=== PATIENT | female | born 1985 | race Caucasian/White ===

== ENCOUNTER 2016-10-04 22:12 | Emergency (ER) | payer OTHER ==
[~2016-10-04] VITALS: Ht 165.1 cm; Wt 154.2 kg
[~2016-10-04 22:12] MED LIST: DESV50TA PO; HYDR-757 PO; IBUP-1773 PO; MILN12.5 PO
--- OUTSIDE RECORDS SUMMARY | 2016-10-04 22:17 | XMS REPORT | Continuity of Care Document ---
Author Author [facility] Organization [facility] Address Unknown Phone Unavailable Care Team Providers Care Car Shunter Name Role Phone PCP Unavailable Source Comments Some departments are not documenting in the electronic medical record. If you do not see the information that you expected, contact Release of Information in the Health Information Management department at [phone] for further assistance in locating additional records.[facility] Active Allergies and Adverse Reactions Not on File Current Medications Not on file Active Problems Not on file Social History Tobacco Use Types Packs/Day Years Used Date Never Assessed Plan of Care Date Type Specialty Providers Description 12/17/2016 Appointment Allergy,Immunology and Nguyen Choi MD Rheumatology [address] [facility] [address] [place] [address] [phone] (Fax) Health Maintenance Due Date Last Done Comments Physical (Comprehensive) 1994 Exam Pertussis Vaccine 1998 Tetanus Vaccine 2004 Cervical Cancer Screening 2008 Influenza Vaccine 05/23/2016 Results from Last 3 Months Not on file
[2016-10-04 22:35] LABS: BILIRUBIN,URINE NEGATIVE (NEGATIVE); KETONES,URINE NEGATIVE (NEGATIVE); LEUKOCYTE ESTERASE ,URINE 2+ (NEGATIVE); NITRITE,URINE NEGATIVE (NEGATIVE); PH,URINE 6 (5-9); PROTEIN,URINE NEGATIVE (NEGATIVE); UROBILINOGEN,URINE 1 MG/DL (NORMAL)
--- NOTE | 2016-10-04 22:43 | ED Abdominal Pain ---
General Chief Complaint: Abdominal/GI Problems Stated Complaint: PELVIC PAIN Nursing Triage Note: Stated that she started having lower abd pain. Did have a fever of 101.6 that day. States it improved yesterday but started having nausea and suprapubic pain today. Pain increases with urination Sepsis Screen: Possible Sepsis Risk Source of Information: Patient History of Present Illness Time Seen By Provider: 22:29 Initial Comments C/O "PELVIC PAIN" OFF AND ON SINCE FRIDAY EVENING 10/02/16 STATES PAIN WENT AWAY FRIDAY MORNING AND DID NOT RETURN UNTIL 1999 TONIGHT STATES PAIN IS WORSE WITH URINATING OR HAVING BOWEL MOVEMENT C/O NAUSEA, NO VOMITING NO DIARRHEA OR CONSTIPATION--HAD NORMAL BM THIS EVENING HAD FEVER OF 101.6 ON FRIDAY BUT NONE SINCE NO VAGINAL BLEEDING OR DISCHARGE LMP--YEARS AGO, HAD SECOND MIRENA IUD PLACED 3 YEARS AGO. HAS TAKEN NOTHING FOR PAIN OR FEVER AT ANY TIME DENIES HISTORY OF SIMILAR PCP: ROBYN-LAURIE, GAGE FERRARO Allergies and Home Medications Allergies Coded Allergies: Deirdre Known Allergies (Verified Allergy, Unknown, 10/04/16) Home Medications Doxycycline Monohydrate 100 Mg Capsule #20 100 MG PO BID Prescribed by: LARA MEJÍA on 10/04/162307 Ketorolac Tromethamine 10 Mg Tablet #15 10 MG PO Q6H Prescribed by: LARA MEJÍA on 10/04/162307 Metronidazole 500 Mg Tablet #40 500 MG PO QID Prescribed by: LARA MEJÍA on 10/04/162307 Review of Systems Constitutional: see HPI fever EENTM: No Symptoms Reported Respiratory: No Symptoms Reported Cardiovascular: No Symptoms Reported Gastrointestinal: See HPI Abdominal Pain NauseaDenies Vomiting Genitourinary: See HPI Pain Musculoskeletal: no symptoms reported Skin: no symptoms reported Psychiatric/Neurological: No Symptoms Reported Endocrine: No Symptoms Reported Hematologic/Lymphatic: No Symptoms Reported Past Ilnfvfj-Jrnync-Wxhmqh Hx Patient Social History Alcohol Use: Denies Use Recreational Drug Use: No Smoking Status: Never a Smoker Recent Foreign Travel: No Contact w/Someone Who Travel: No Recent Infectious Disease Expo: No Recent Hopitalizations: No Physical Abuse Screen: No Sexual Abuse: No Immunizations Up To Date Tetanus Booster (TDap): Less than 5yrs Surgeries HX Surgeries: Yes ( X 2; WISDOM TEETH REMOVED; RIGHT OOPHORECTOMY FOR OVARIAN CYST) Surgeries: Section, Oophorectomy Respiratory Hx Respiratory Disorders: No Cardiovascular Hx Cardiac Disorders: Yes Cardiac Disorders: Hypertension Neurological Hx Neurological Disorders: No Reproductive System Hx Reproductive Disorders: No Sexually Transmitted Disease: No HIV/AIDS: No Female Reproductive Disorders: Ovarian Cyst 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 Genitourinary Hx Genitourinary Disorders: Yes Genitourinary Disorders: Kidney Infection, Bladder Infection Gastrointestinal Hx Gastrointestinal Disorders: No Musculoskeletal Hx Musculoskeletal Disorders: Yes Musculoskeletal Disorders: Fibromyalgia Endocrine Hx Endocrine Disorders: Yes (OBESITY) HEENT HX ENT Disorders: No Cancer Hx Cancer: No Psychosocial Hx Psychiatric Problems: No Integumentary HX Skin/Integumentary Disorder: No Blood Transfusions Hx Blood Disorders: No Physical Exam Vital Signs VS - Last 72 Hours, by Label 10/04/16 10/04/16 22:21 23:45 Temp 98.0 98.4 Pulse 97 91 Resp 18 18 B/P 140/93 Pulse Ox 100 99 Capillary Refill : Less Than 3 Seconds General Appearance: WD/WN no apparent distress obese other (WALKS UPRIGHT AND MOVES WITHOUT DIFFICULTY) Neck: normal inspection Respiratory: normal breath sounds no respiratory distress no accessory muscle use Cardiovascular: normal peripheral pulses regular rate, rhythm no edema no JVD no murmur Gastrointestinal: normal bowel sounds soft no organomegaly no pulsatile massNo distended, No guarding, No rebound, tenderness (SUPRAPUBIC TENDERNESS) No hernia, No mass Extremities: normal inspection Back: no CVA tenderness Pelvic: normal external exam discharge (SMALL AMOUNT OF LIGHT YELLOW DISCHARGE ) tender w/ cervical motion (MARKED) tender adnexa (LEFT > RIGHT ) tender uterus other (CERVIX INFLAMED AND VERY FRIABLE. 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 no motor/sensory deficits alert normal mood/affect oriented x 3 Skin: normal color warm/dry Progress/Results/Core Measures Results/Orders Lab Results Laboratory Tests Test 10/04/16 22:16 10/04/16 23:00 Range/Units Urine Bacteria MODERATE H /HPF Urine Bilirubin NEGATIVE NEGATIVE Urine Casts NONE /LPF Urine Clarity SLIGHTLY CLOUDY Urine Color YELLOW Urine Crystals NONE /LPF Urine Culture Indicated YES Urine Glucose (UA) NEGATIVE NEGATIVE Urine Ketones NEGATIVE NEGATIVE Urine Leukocyte Esterase 2+ H NEGATIVE Urine Mucus NEGATIVE /LPF Urine Nitrite NEGATIVE NEGATIVE Urine Protein NEGATIVE NEGATIVE Urine RBC RARE /HPF Urine RBC (Auto) 2+ H NEGATIVE Urine Specific [place] 1.020 1.016-1.022 Urine Squamous Epithelial Cells 10-25 H /HPF Urine Urobilinogen 1 NORMAL MG/DL Urine WBC 5-10 H /HPF Urine pH 6 5-9 My Orders Orders-LARA MEJÍA DO Urine Bedside (10/04/16 22:24) Ua Culture If Indicated (10/04/16 22:24) Urine Culture (10/04/16 22:16) Neisseria Gonorrhea Dna (10/04/16 22:52) Chlam Dna Probe (10/04/16 22:52) Genital Culture (10/04/16 22:52) Wet Prep (10/04/16 22:52) Noelle Prep (10/04/16 22:52) Ketorolac Injection (Toradol Injection) (10/04/16 23:15) Ceftriaxone Injection (Rocephin Injectio (10/04/16 23:15) Lidocaine 1% Injection (Xylocaine 1% Inj (10/04/16 23:15) Azithromycin Tablet (Zithromax Tablet) (10/05/16 09:00) Azithromycin Tablet (Zithromax Tablet) (10/04/16 23:26) Medications Given in ED Current Medications Medications Dose Ordered Sig/Lucero Route Start Time Stop Time Status Last Admin Dose Admin Ceftriaxone Sodium 1,000 mg ONCE ONCE IM 10/04/16 23:15 10/04/16 23:16 DC 10/04/16 23:37 1,000 MG Ketorolac Tromethamine 60 mg ONCE ONCE IM 10/04/16 23:15 10/04/16 23:16 DC 10/04/16 23:37 60 MG Lidocaine HCl 2.1 ml ONCE ONCE INJ 10/04/16 23:15 10/04/16 23:16 DC 10/04/16 23:37 2.1 ML Vital Signs/I&O Vital Sign - Last 12Hours 10/04/16 10/04/16 22:21 23:45 Temp 98.0 98.4 Pulse 97 91 Resp 18 18 B/P 140/93 Pulse Ox 100 99 Blood Pressure Mean: 109 Point of Care Testing Urine -Bedside: Negative Departure Impression Impression: Primary Impression: Urinary tract infection Additional Impression: PID (pelvic inflammatory disease) Disposition: 01 HOME, SELF-CARE Condition: Stable Departure-Patient Inst. Referrals: FELECIA JOHNSON DO (PCP) Primary Care Physician SCOUT FERRARO (Family) Primary Care Physician Patient Instructions: Acute Pelvic Pain (DC), Pelvic Inflammatory Disease (DC) , Urinary Tract Infection, Adult (DC) Add. Discharge Instructions: LOTS OF CLEAR LIQUIDS--NO COFFEE, POP OR TEA TYLENOL 1 GRAM /MOTRIN 800 MG 4 TIMES A DAY NEEDED FOR PAIN OR FEVER NOTHING IN VAGINA--NO TAMPONS, DOUCHING OR INTERCOURSE UNTIL CLEARED BY DR. FOLLOW UP WITH YOUR DR IN 2-3 DAYS FOR FURTHER CARE RETURN TO ER IF WORSE All discharge instructions reviewed with patient and/or family. Voiced understanding. Scripts Ketorolac Tromethamine 10 Mg [id number] Mg PO Q6H Pain #15 TAB Prov:LARA MEJÍA DO 10/04/16 Metronidazole (Flagyl)500 Mg [id number] Mg PO QID FOR INFECTION #40 TAB Prov:LARA MEJÍA DO 10/04/16 Doxycycline Monohydrate 100 Mg [id number] Mg PO BID #20 CAP Prov:LARA MEJÍA DO 10/04/16 LARA MEJÍA DO Oct 04, 2016 22:43
[2016-10-04] MEDS ORDERED: METR500T PO (23:08)
[2016-10-04] MEDS ORDERED: DOXY100C42 PO (23:08)
[2016-10-04] MEDS ORDERED: KETO10TA PO (23:08)
[2016-10-04] MEDS ORDERED: cefTRIAXone 1 GM (ROCEPHIN) VIAL IM ONE (23:15)
[2016-10-04] MEDS ORDERED: LIDOCAINE 1% INJ 20 ML (XYLOCAINE) VIAL INJ ONE (23:15)
[2016-10-04] MEDS ORDERED: KETOROLAC 60 MG/2 ML VIAL IM ONE (23:15)
[2016-10-04] MEDS ORDERED: AZITHROMYCIN 250 MG TAB (ZITHROMAX) PO ONE (23:26)
[2016-10-04 23:45] VITALS: BP 141/81
[2016-10-05] MEDS ORDERED: AZITHROMYCIN 250 MG TAB (ZITHROMAX) PO SCH (09:00)
[2016-12-24 09:50] LABS: CHLAMYDIA DNA PROBE PT Negative (NEG); NEISSERIA GONORRHEA DNA Negative (NEG)
== END 2016-10-04 23:42 | disposition home or self-care (01) ==
LOC: EDUNIT# 22:12 → ER 22:14
DX: N73.9 Female pelvic inflammatory disease, unspecified (principal); N39.0 Urinary tract infection, site not specified; I10 Essential (primary) hypertension; E66.9 Obesity, unspecified; Z79.899 Other long term (current) drug therapy; Z97.5 Presence of (intrauterine) contraceptive device
CPT/HCPCS: 36415; 81000; 84703; 87070; 87088; 87210; 87220; 87491; 87591; 96372; 99284

== ENCOUNTER → 2016-10-14 | Outpatient (CLI) | payer OTHER ==
[~2016-10-14] MED LIST changes: +CHOL200014 PO; +DOXY100C42 PO; +HYDR-3812 PO; +KETO10TA PO; +LEVO50TA6 PO; +METR500T PO
--- OUTSIDE RECORDS SUMMARY | 2016-10-14 10:54 | XMS REPORT | Continuity of Care Document ---
Author Author [facility] Organization [facility] Address Unknown Phone Unavailable Care Team Providers Care Rehabilitation Tech Name Role Phone PCP Unavailable Source Comments Some departments are not documenting in the electronic medical record. If you do not see the information that you expected, contact Release of Information in the Health Information Management department at [phone] for further assistance in locating additional records.[facility] Active Allergies and Adverse Reactions Not on File Current Medications Not on file Active Problems Not on file Social History Tobacco Use Types Packs/Day Years Used Date Never Assessed Plan of Care Date Type Specialty Providers Description 12/17/2016 Appointment Allergy,Immunology and Nguyen Choi MD Rheumatology [address] [facility] [address] [place] [address] [phone] (Fax) Health Maintenance Due Date Last Done Comments Physical (Comprehensive) 1994 Exam Pertussis Vaccine 1998 Tetanus Vaccine 2004 Cervical Cancer Screening 2008 Influenza Vaccine 05/23/2016 Results from Last 3 Months Not on file
--- NOTE | 2016-10-14 12:14 | Diagnostic Imaging Report ---
EXAMINATION: Pelvic ultrasound. INDICATION: Pelvic pain. FINDINGS: The previous pelvic ultrasound exam performed on 10/03/2015 noted a 7.5 cm benign-appearing cyst associated with the right ovary. Reportedly in the interval since the prior exam, the cyst and the right ovary have been surgically removed. On this exam, the right ovary is not identified. In the interval since the previous study, a 3.9 x 2.3 x 5.8 cm hypoechoic lesion with internal echoes has developed on the left ovary. This may represent an ovarian cyst which has appears to have been complicated by infection and/or hemorrhage. If further study is desired, then laparoscopy will be recommended. Otherwise, a short-term (4-6 week) follow-up ultrasound exam should be obtained. There is no solid pelvic mass or free fluid collection noted. The uterus is nongravid and not enlarged measuring 7.9 x 4.9 x 4.4 cm. The endometrial lining is not thickened measuring 6 mm (normal 5-6 mm). As noted on the prior exam, there is an IUD in place. There is no focal mass involving the uterus to suggest a fibroid. IMPRESSION: 1. In the interval since the previous exam, the right ovary and the right ovarian cyst have been removed. There is now a 3.9 x 2.3 x 5.8 cm hypoechoic lesion in the left ovary. 2. There is no acute pelvic abnormality noted otherwise. 3. The IUD remains in good position. Dictated by: Dictated on workstation # [id number]
== END ==
LOC: RAD 10:51
PROVIDERS: ATTEND Nurse Practitioner Family
DX: R10.2 Pelvic and perineal pain (principal)
CPT/HCPCS: 76830; 76856

== ENCOUNTER 2016-10-30 08:16 | Outpatient (CLI) | payer OTHER ==
[~2016-10-30] VITALS: Ht 165.1 cm; Wt 159.3 kg
[~2016-10-30 08:16] MED LIST changes: -CHOL200014 PO; -HYDR-3812 PO; -LEVO50TA6 PO
--- OUTSIDE RECORDS SUMMARY | 2016-10-30 08:19 | XMS REPORT | Continuity of Care Document ---
Author Author [facility] Organization [facility] Address Unknown Phone Unavailable Care Team Providers Care Qa Analyst Name Role Phone PCP Unavailable Source Comments Some departments are not documenting in the electronic medical record. If you do not see the information that you expected, contact Release of Information in the Health Information Management department at [phone] for further assistance in locating additional records.[facility] Active Allergies and Adverse Reactions Not on File Current Medications Not on file Active Problems Not on file Social History Tobacco Use Types Packs/Day Years Used Date Never Assessed Plan of Care Date Type Specialty Providers Description 12/17/2016 Appointment Allergy,Immunology and Nguyen Choi MD Rheumatology [address] [facility] [address] [place] [address] [phone] (Fax) Health Maintenance Due Date Last Done Comments Physical (Comprehensive) 1994 Exam Pertussis Vaccine 1998 Tetanus Vaccine 2004 Cervical Cancer Screening 2008 Influenza Vaccine 05/23/2016 Results from Last 3 Months Not on file
[2016-10-30] MEDS ORDERED: LEVO50TA6 PO (08:26)
[2016-10-30] MEDS ORDERED: CHOL200014 PO (08:26)
[2016-10-30 08:30] VITALS: BP 124/75
[2016-10-30 08:57] LABS: BASOPHILS % (AUTO) 0 % (0-10); EOSINOPHILS # (AUTO) 0.1 10^3/uL (0.0-0.3); EOSINOPHILS % (AUTO) 2 % (0-10); LYMPHOCYTES # (AUTO) 1.2 X 10^3 (1.0-4.0); LYMPHOCYTES % (AUTO) 20 % (12-44); MEAN CORPUSCULAR HEMOGLOBIN 29 PG (25-34); MEAN CORPUSCULAR HGB CONC 34 G/DL (32-36); MEAN CORPUSCULAR VOLUME 85 FL (80-99); MEAN PLATELET VOLUME 10.3 FL (7.4-10.4); MONOCYTES # (AUTO) 0.4 X 10^3 (0.0-1.0); MONOCYTES % (AUTO) 7 % (0-12); NEUTROPHILS # (AUTO) 4.4 X 10^3 (1.8-7.8); NEUTROPHILS % (AUTO) 72 % (42-75); PLATELET COUNT 257 10^3/uL (130-400); RED BLOOD COUNT 5.19 10^6/uL (4.35-5.85); RED CELL DISTRIBUTION WIDTH 13.4 % (10.0-14.5); WHITE BLOOD COUNT 6.1 10^3/uL (4.3-11.0)
[2016-10-31] MEDS ORDERED: HYDR-3812 PO (10:53)
[2016-10-31] MEDS ORDERED: IBUP-1773 PO (10:53)
== END 2016-10-30 09:51 | disposition home or self-care (01) ==
LOC: PREOP 08:16
PROVIDERS: ATTEND Obstetrics & Gynecology
DX: Z01.812 Encounter for preprocedural laboratory examination (principal); Z11.2 Encounter for screening for other bacterial diseases; R10.2 Pelvic and perineal pain; N83.209 Unspecified ovarian cyst, unspecified side
CPT/HCPCS: 36415; 84703; 85025; 86850; 86900; 86901; 87081

== ENCOUNTER 2016-10-31 07:50 | Day surgery (SDC) | payer OTHER ==
[~2016-10-31] VITALS: Ht 165.1 cm; Wt 159.3 kg
[~2016-10-31 07:50] MED LIST changes: +CHOL200014 PO; +LEVO50TA6 PO
--- OUTSIDE RECORDS SUMMARY | 2016-10-31 07:58 | XMS REPORT | Continuity of Care Document ---
Author Author [facility] Organization [facility] Address Unknown Phone Unavailable Care Team Providers Care Sorter/Assay Tech Name Role Phone PCP Unavailable Source Comments Some departments are not documenting in the electronic medical record. If you do not see the information that you expected, contact Release of Information in the Health Information Management department at [phone] for further assistance in locating additional records.[facility] Active Allergies and Adverse Reactions Not on File Current Medications Not on file Active Problems Not on file Social History Tobacco Use Types Packs/Day Years Used Date Never Assessed Plan of Care Date Type Specialty Providers Description 12/17/2016 Appointment Allergy,Immunology and Nguyen Choi MD Rheumatology [address] [facility] [address] [place] [address] [phone] (Fax) Health Maintenance Due Date Last Done Comments Physical (Comprehensive) 1994 Exam Pertussis Vaccine 1998 Tetanus Vaccine 2004 Cervical Cancer Screening 2008 Influenza Vaccine 05/23/2016 Results from Last 3 Months Not on file
--- OUTSIDE RECORDS SUMMARY | 2016-10-31 07:58 | XMS REPORT | Continuity of Care Document ---
Author Author [facility] Organization [facility] Address Unknown Phone Unavailable Care Team Providers Care Apartment Property Manager Name Role Phone PCP Unavailable Source Comments Some departments are not documenting in the electronic medical record. If you do not see the information that you expected, contact Release of Information in the Health Information Management department at [phone] for further assistance in locating additional records.[facility] Active Allergies and Adverse Reactions Not on File Current Medications Not on file Active Problems Not on file Social History Tobacco Use Types Packs/Day Years Used Date Never Assessed Plan of Care Date Type Specialty Providers Description 12/17/2016 Appointment Allergy,Immunology and Nguyen Choi MD Rheumatology [address] [facility] [address] [place] [address] [phone] (Fax) Health Maintenance Due Date Last Done Comments Physical (Comprehensive) 1994 Exam Pertussis Vaccine 1998 Tetanus Vaccine 2004 Cervical Cancer Screening 2008 Influenza Vaccine 05/23/2016 Results from Last 3 Months Not on file
[2016-10-31] MEDS ORDERED: NS (IVPB) 50 ML ONE (08:09)
[2016-10-31] MEDS ORDERED: ceFAZolin 1,000 MG (ANCEF) VIAL ONE (08:09)
[2016-10-31] MEDS ORDERED: BUP/EPI 0.25% 1:200,000 (MARCAINE) 30 ML VIAL ONE (08:15)
[2016-10-31] MEDS ORDERED: ceFAZolin 1 GM/NS 50 ML IVPB IV ONE ×2 (08:15)
[2016-10-31 08:25] VITALS: BP 138/94
[2016-10-31] MEDS: LACTATED RINGERS 1,000 ML IV SCH ×2 (08:30→10:15)
[2016-10-31] MEDS ORDERED: LIDOCAINE PF 2% 10 ML (XYLOCAINE) AMP ONE (09:33)
[2016-10-31] MEDS ORDERED: proPOfol 200 MG/20 ML (DIPRIVAN) VIAL IV ONE (09:33)
[2016-10-31] MEDS ORDERED: ROCURONIUM 50 MG/5 ML (ZEMURON) VIAL IV ONE (09:33)
[2016-10-31] MEDS ORDERED: ONDANSETRON 4 MG/2 ML (SDV) Z0FRAN ONE (09:33)
[2016-10-31] MEDS ORDERED: LIDOCAINE JELLY 2% (XYLOCAINE) 5 ML TUBE ONE (09:33)
[2016-10-31] MEDS ORDERED: MIDAZOLAM 2 MG/2 ML (VERSED) VIAL ONE (09:33)
[2016-10-31] MEDS ORDERED: LACTATED RINGERS 1,000 ML IV ONE (09:33)
[2016-10-31] MEDS ORDERED: fentaNYL INJECTION 100 MCG/2 ML AMP ONE ×2 (09:34→10:50)
[2016-10-31] MEDS ORDERED: SEVOFLURANE (ULTANE) 15 ML INHAL SOLN ONE ×2 (10:14→10:50)
[2016-10-31] MEDS ORDERED: morphine INJ 10 MG/ML 1ML (SYR OR VIAL) ONE ×2 (10:29→10:50)
[2016-10-31] MEDS ORDERED: D5 LR IV SOLUTION 1,000 ML IV SCH (10:49)
--- NOTE | 2016-10-31 10:52 | Discharge Inst-Women's Service ---
Discharge Inst-Women's Serv Depart Medication/Instructions New, Converted or Re-Newed RX: RX on Chart Consults/Follow Up Additional Follow Up: Yes Orders/Referrals Dr. Roblero in 2-3 weeks Activity Activity: Activity as Tolerated Driving Instructions: No Driving for 1 Week NO SMOKING: NO SMOKING Nothing Inside Vagina: No Douching, No [place], No Tampons Diet Discharge Diet: No Restrictions Symptoms to Report to : Bleeding Excessive, Pain Increased, Fever Over 101 Degrees F, Vaginal Bleeding Increase, Questions/Concerns For Any Problems or Questions: Contact Your Physician Skin/Wound Care Infection Signs and Symptoms: Increased Redness, Foul Odor of Wound, Increased Drainage, Skin Itchy or Has a Rash, Increased Swelling, Temperature Above 101 F Operative Area Clean and Dry: Keep Incision Clean/Dry Stitches/Samantha/Dermabond: Dermabond Bathing Instructions: MADISON Main DO Oct 31, 2016 10:52
[2016-10-31] MEDS ORDERED: HYDR-3812 PO (10:53)
[2016-10-31] MEDS ORDERED: IBUP-1773 PO (10:53)
[2016-10-31] MEDS ORDERED: ONDANSETRON 4 MG/2 ML (SDV) Z0FRAN IVP PRN ×2 (11:00)
[2016-10-31] MEDS ORDERED: fentaNYL INJECTION 100 MCG/2 ML AMP IVP PRN (11:00)
[2016-10-31] MEDS ORDERED: KETOROLAC 30 MG/ML VIAL IVP ONE (11:00)
[2016-10-31] MEDS ORDERED: MEPERIDINE (DEMEROL) INJ 50 MG/ML IVP PRN (11:00)
[2016-10-31] MEDS ORDERED: HYDROcodone/APAP 5 MG/325 MG (LORTAB) TAB PO PRN (11:00)
[2016-10-31] MEDS: morphine INJ 10 MG/ML 1ML (SYR OR VIAL) IVP PRN ×2 (11:06→11:22)
[2016-10-31 11:50] VITALS: BP 137/73
[2016-10-31 12:20] VITALS: BP 110/73
[2016-10-31 12:50] VITALS: BP 110/73
[2016-10-31 13:45] VITALS: BP 110/73
--- NOTE | 2016-11-01 12:46 | OPERATIVE REPORT ---
PROCEDURE PHYSICIAN: HENRY GARCIA DATE OF PROCEDURE: 10/31/2016 PREOPERATIVE DIAGNOSIS: 30-year-old female with left ovarian cystic structure on ultrasound. POSTOPERATIVE DIAGNOSIS: 1. 30-year-old female with left ovarian cystic structure on ultrasound. 2. Hemorrhagic left ovarian cyst. SURGEON: Dr. Henry Garcia. SQL REPORT ANALYST: Dayanna Reid APRN ANESTHESIA: General endotracheal. PROCEDURE: Left ovarian cystotomy. ESTIMATED BLOOD LOSS: Minimal URINE OUTPUT: 500 mL, clear at the end of the procedure. FLUIDS: 1500 mL lactated ringer solution. FINDINGS: Findings is an absent right ovary. Left ovary which is multicystic appearing with old blood clot noted on the inferior margin of the ovary running down the contact portion of the ovary with the ovarian fossa. Mirena IUD strings noted in place. Grossly normal appearing uterus. INDICATIONS FOR THE PROCEDURE: This 30-year-old female came to my office with concerns of significant lower abdominal pain. She was found to have an ovarian cyst, approximately 5 cm to [address] and ultrasound from an ER visit. The patient reports persistent pain and no resolution or improvement of pain in the last several days. She wants to proceed with removal of this cystic structure. I discussed with the patient more conservative measures including OCP, long-term suppression of ovarian cyst, however despite this discussion, she wishes to proceed with diagnostic laparoscopy and addressing the underlying cystic structure. The risks of the procedure was discussed with the patient in detail including risk of bleeding, infection, damaging any of the surrounding structures, including, but not limited to bowel, bladder, ureter, kidneys, risk of hematoma formation, risk of postoperative thromboembolic event, risk of anesthesia, blood transfusion, and even were all discussed with the patient. After all of her questions were answered consent was obtained. The patient was taken to the operating room. OPERATIVE REPORT IN DETAIL: Once in the operating room, general anesthesia was found to be adequate. She was placed in dorsal lithotomy position, prepped and draped in the sterile fashion. I first do a vaginal exam with sterile speculum . I am able to visualize the cervix and the strings of the Mirena IUD at which point I decided not to place a KATIA uterine manipulator due to manipulation and possible perforation of the IUD. Instead I placed a sponge stick into the posterior vaginal fornix using a long ring forceps with a sponge. I then place the Montejo catheter using sterile technique and then take my attention to the abdomen where infraumbilically I infiltrate this area using Marcaine and make a 5 mm incision and due to patient's abdominal thickness, I place the camera into my laparoscopic trocar and direct this under camera guidance through the incision site, until intraperitoneal placement is confirmed upon camera guidance. I then remove the obturator and insufflate using CO2 gas, an opening pressure of 8 mmHg is noted. I proceed to maximum pressure of 15 mmHg, at which point I am able clearly visualize the peritoneal cavity after removing the obturator of the trocar and placing the laparoscope through it. I had the patient placed in steep Trendelenburg and visualize all the findings described above. I then decide that I will need a second trocar site; this is a suprapubic site 5 mm incision is made and a 5 mm trocars was directed through this site. Intraperitoneal placement is confirmed using the laparoscope. I then gently teased the ovary out of the pelvis and move the bowel out of the posterior cul-de-sac, allowing me to visualize the ovary and I document this with photodocumentation. I then remove the clotted blood from the ovary using a grasper and create a cystotomy window through this cyst using a hook with monopolar cautery. Once this is open wide enough to allow the fluid cyst to drain, I use a suction live out nanny to suction out all of the cystic fluid within the ovary and copiously irrigate the cyst of the ovary using normal saline. There is no active bleeding noted from any my dissection planes. At that point the ovary has been decompressed and there is no active bleeding noted from the ovary itself. I then proceed with copiously irrigating the pelvis using normal saline. There is no active bleeding noted from any of my dissection planes. I then removed the suprapubic trocar under direct visualization of the laparoscope. No evidence of damage or bleeding is noted at this point. I then remove the laparoscope and release insufflation from my umbilical trocar site. Once I remove the majority of the CO2 gas. I then remove this trocar as well. There is no active bleeding noted from this trocar site as well. The skin is reapproximated using Dermabond and Band-Aids are placed over this. The sponge stick is removed from the patient's vagina. A Montejo catheter is removed as well. The patient tolerated the procedure well and was taken to the recovery area in stable condition. Lap and sponge counts were correct at the end of the procedure. Instrument counts correct as well. Job ID: [id number] Dictated Date: 10/31/2016 11:00:17 Chain Mortiser Operator Date: 11/01/2016 12:26:48 / farhat
== END 2016-10-31 13:45 | disposition home or self-care (01) ==
LOC: SDC 07:50
PROVIDERS: ATTEND Obstetrics & Gynecology
DX: N83.202 Unspecified ovarian cyst, left side (principal)

== ENCOUNTER → 2017-03-17 | Outpatient (CLI) | payer OTHER ==
[~2017-03-17] MED LIST changes: +HYDR-3812 PO
--- NOTE | 2017-03-17 13:47 | Diagnostic Imaging Report ---
PROCEDURE: US Thyroid. TECHNIQUE: Multiple real-time grayscale images were obtained of the thyroid in various projections. INDICATION: History of thyroid nodule. FINDINGS: The right thyroid lobe is 4.7 x 1.2 x 1.4 cm. The left lobe is 4.1 x 1.1 x 1.2 cm. There is a colloid cyst measuring 6 mm in the lower pole of the right thyroid lobe. Other smaller predominantly cystic areas in the mid right thyroid lobe is seen. The left lobe is fairly homogeneous with no focal lesion. IMPRESSION: Small colloid cysts seen in the right thyroid lobe. No solid nodules or masses seen. Dictated by: Dictated on workstation # [id number]
== END ==
LOC: RAD 11:10
PROVIDERS: ATTEND Nurse Practitioner Family
DX: E04.1 Nontoxic single thyroid nodule (principal); Z86.39 Personal history of other endocrine, nutritional and metabolic disease
CPT/HCPCS: 76536

== ENCOUNTER → 2017-04-03 | Outpatient (CLI) | payer OTHER ==
--- NOTE | 2017-04-03 16:14 | Diagnostic Imaging Report ---
CLINICAL INDICATION: Patient with pelvic pain. Patient has history of right ovarian cyst with right oophorectomy. EXAM: Transabdominal and transvaginal ultrasound of the pelvis. COMPARISON: Pelvic ultrasound dated 10/14/2016. FINDINGS: IUD is seen within the endometrial region of the uterus. Uterus is unremarkable with normal configuration and echogenicity. Uterus measures 7.9 cm x 4.6 cm x 4.0 cm. Right ovary is surgically resected. There is no gross abnormality in the visualized portion of the right adnexa region. Left ovary shows small follicular cysts which are less than subcentimeter in size. The left ovary has normal spectral Doppler waveform. There is no evidence of left ovarian torsion. There is no free fluid in the pelvis. IMPRESSION: 1: There is no acute pelvic process on this ultrasound exam. 2: IUD is seen within the uterus and appears to be in good position. 3: Left ovary is unremarkable. 4: Right ovary is surgically resected. Dictated by: Dictated on workstation # [id number]
== END ==
LOC: RAD 14:50
PROVIDERS: ATTEND Nurse Practitioner Family
DX: R10.2 Pelvic and perineal pain (principal); Z90.721 Acquired absence of ovaries, unilateral; Z97.5 Presence of (intrauterine) contraceptive device
CPT/HCPCS: 76830; 76856

== ENCOUNTER → 2018-05-29 | Outpatient (CLI) | payer BC ==
[~2018-05-29] MED LIST changes: +ACHD5005 PO; -CHOL200014 PO; +CHOL200085 PO; -HYDR-3812 PO; +HYDR-4226 PO; -HYDR-757 PO
--- NOTE | 2018-05-29 17:18 | Diagnostic Imaging Report ---
INDICATION: Acute pelvic pain, dyspareunia. TECHNIQUE: Multiple real-time grayscale sonographic images were obtained of the pelvis transabdominally and transvaginally. CORRELATION STUDY: 04/03/2017. FINDINGS: UTERUS/ENDOMETRIUM: Uterus measures 7.6 x 4.3 x 3.4 cm. Endometrial thickness is 7 mm. Intrauterine contraceptive device appears to be in satisfactory position. RIGHT OVARY: Not visualized, reported as surgically absent. LEFT OVARY: 5.0 x 4.9 x 3.7 cm. There is a complex hypoechoic mass perhaps a hemorrhagic cyst at 3.4 x 3.2 x 3.7 cm in size. Blood flow is demonstrated to the left ovary. No significant free pelvic fluid. IMPRESSION: 1. 3.7 cm complex mass left ovary. While nonspecific, this may be reflective of a hemorrhagic cyst. Would recommend follow-up imaging after approximately 2-3 menstrual cycles. 2. Findings compatible with right-sided oophorectomy. 3. Intrauterine contraceptive device appears to be in satisfactory position. Dictated by: Dictated on workstation # [id number]
== END ==
LOC: RAD 15:58
PROVIDERS: ATTEND Obstetrics & Gynecology
DX: N83.8 Other noninflammatory disorders of ovary, fallopian tube and broad ligament (principal); N94.10 Unspecified dyspareunia; Z97.5 Presence of (intrauterine) contraceptive device
CPT/HCPCS: 76830

== ENCOUNTER → 2018-07-20 | Outpatient (CLI) | payer BC ==
--- NOTE | 2018-07-20 17:14 | Diagnostic Imaging Report ---
PROCEDURE: US Non-ob pelvis comp/trans. TECHNIQUE: Multiple realtime grayscale images were obtained of the pelvis in various projections endovaginally. Transabdominal imaging was also performed. INDICATION: Complex left ovarian mass. Study is performed for followup. COMPARISON: Correlation is made with prior ultrasound from 05/29/2018. FINDINGS: Endometrium is 6 mm in thickness. No uterine mass is seen. The right ovary is surgically absent. The left ovary measures 3.4 x 3.0 x 2.6 cm. Complex mass involving the left ovary has decreased in size, now measuring 2.1 x 1.9 x 2.1 cm compared with 3.4 x 3.2 x 3.7 cm. No free fluid is seen. IMPRESSION: Decrease in size of complex left ovarian mass when compared with examination from 05/29/2018. Dictated by: Dictated on workstation # [id number]
== END ==
LOC: RAD 15:48
PROVIDERS: ATTEND Obstetrics & Gynecology
DX: N83.292 Other ovarian cyst, left side (principal); Z90.721 Acquired absence of ovaries, unilateral
CPT/HCPCS: 76830; 76856

== ENCOUNTER → 2018-09-23 | Outpatient (CLI) | payer BC ==
--- NOTE | 2018-09-23 15:37 | Diagnostic Imaging Report ---
INDICATION: Adnexal lesion. COMPARISON: 07/20/2018. EXAMINATION: Transvaginal pelvic ultrasound, non-OB. FINDINGS: Complex nodule in the left ovary is smaller than previous, today it measures 1.4 x 0.7 x 1.1 cm. Its previous dimensions were 2.1 x 1.9 x 2.1 cm. Its reduction likely reflects a resolving complex hemorrhagic cyst or other benign etiology. The right ovary is surgically absent. The uterus is nonfocal. No fibroid or myometrial mass. The homogeneous endometrium appears unremarkable at 4 mm. IMPRESSION: Complex left ovarian nodule, smaller than on prior, likely resolving hemorrhagic cyst. No adverse development. No new ovarian lesion. No evidence for torsion. No myometrial or endometrial pathology. Dictated by: Dictated on workstation # [id number]
== END ==
LOC: RAD 12:45
PROVIDERS: ATTEND Obstetrics & Gynecology
DX: N83.292 Other ovarian cyst, left side (principal)
CPT/HCPCS: 76830; 76856

== ENCOUNTER 2018-11-02 05:41 | Outpatient (CLI) | payer BC ==
[~2018-11-02] VITALS: Ht 165.1 cm; Wt 152.0 kg
[~2018-11-02 05:41] MED LIST changes: +CHOL200014 PO; -CHOL200085 PO
[2018-11-02] MEDS ORDERED: DULO30CA3 PO (13:37)
[2018-11-02] MEDS ORDERED: DULO60CA6 PO (13:37)
[2018-11-02] MEDS ORDERED: LEVO75TA6 PO (13:37)
== END 2018-11-02 13:44 | disposition home or self-care (01) ==
LOC: PREOP 05:41
PROVIDERS: ATTEND Obstetrics & Gynecology
DX: Z01.818 Encounter for other preprocedural examination (principal)

== ENCOUNTER 2018-11-05 09:10 | Day surgery (SDC) | payer BC ==
[~2018-11-05] VITALS: Ht 165.1 cm; Wt 152.0 kg
[~2018-11-05 09:10] MED LIST changes: +DULO30CA3 PO; +DULO60CA6 PO; +LEVO75TA6 PO
--- OUTSIDE RECORDS SUMMARY | 2018-11-05 09:14 | XMS REPORT | Clinical Summary ---
Author Author [facility] Organization [facility] Address Unknown Phone Unavailable Care Team Providers Care [employer] Att[employer] Name Role Phone Homa Escobedo NARENDRA PCP Terra Wood DO 3 Source Comments Some departments are not documenting in the electronic medical record. If you do not see the information that you expected, contact Release of Information in the Health Information Management department at [phone] for further assistance in locating additional records.[facility] Allergies Not on File Medications End Date Status Medication Sig Dispensed Refills Start Date Active baclofen (LIORESAL) 10 mg Take 10 mg by 0 tablet mouth three times daily. Active levothyroxine (SYNTHROID) Take 75 mcg 0 75 mcg tablet by mouth daily 30 minutes before breakfast. Active ERGOCALCIFEROL (VITAMIN Take 50,000 0 D2) (VITAMIN D PO) Units by mouth every 7 days. Active Problems Problem Noted Date Polyarthralgia 06/04/2017 Myalgia 06/04/2017 Family History Medical History Relation Name Comments Hypertension Father Anemia Mother Heart Failure Mother Hypertension Mother Relation Name Status Comments Father Mother Social History Date Tobacco Use Types Packs/Day Years Used Never Smoker Smokeless Tobacco: Never Used Sex Assigned at Date Recorded Not on file Industry Job Start Date Occupation Not on file Not on file Not on file Travel End Travel History Travel Start No recent travel history available. Last Filed Vital Signs Time Taken Vital Sign Reading 12/22/2017 2:42 PM CDT Blood Pressure 137/89 12/22/2017 2:42 PM CDT Pulse 83 12/22/2017 2:42 PM CDT Temperature 36.9 C (98.4 F) 12/22/2017 2:42 PM CDT Respiratory Rate 18 12/22/2017 2:42 PM CDT Oxygen Saturation 97% - Inhaled Oxygen - Concentration 12/22/2017 2:42 PM CDT Weight 159.2 kg (351 lb) 12/22/2017 2:42 PM CDT Height 165.1 cm (5' 5") 12/22/2017 2:42 PM CDT Body Mass Index 58.41 Plan of Treatment Health Maintenance Due Date Last Done Comments PHYSICAL (COMPREHENSIVE) 1994 EXAM HIV SCREENING 2002 DTAP/TDAP VACCINES (1 - 2005 Tdap) CERVICAL CANCER SCREENING 2017 INFLUENZA VACCINE 04/22/2018 Results Not on filefrom Last 3 Months Insurance Payer Benefit Subscriber ID Type Phone Address Plan / Group [facility] xxxxxxxxx Indemnity CHOICE/CHO ICE PLUS Advance Directives Patient has advance care planning documents on file. For more information, please contact: [facility] [address] [place] [address]
--- OUTSIDE RECORDS SUMMARY | 2018-11-05 09:15 | XMS REPORT | Continuity of Care Document ---
Author Author [facility] Organization [facility] Address Unknown Phone Unavailable Allergies Active Description Code Type Severity Reaction Onset Reported/Identified Relationship to Patient Clinical Status Yes NKANo Known Allergies NKA Miscellaneous Allergy Unknown N/A 10/04/2016 Yes No Known Drug Allergies [id number] Drug Allergy Unknown N/A 10/30/2016 Medications There is no data. Problems Date Dx Coded Attending Type Code Diagnosis Diagnosed By 11/10/2014 JASMINESCOUT Dago DISTANCE LEARNING COORDINATOR Ot 278.02 11/10/2014 JASMINELUCILLEA L DISTANCE LEARNING COORDINATOR Ot 729.1 11/10/2014 MADLVANDANASCOUT L DISTANCE LEARNING COORDINATOR Ot 786.50 06/23/2015 MADL, SCOUT L DISTANCE LEARNING COORDINATOR Ot 278.02 06/23/2015 MADL, SCOUT L DISTANCE LEARNING COORDINATOR Ot 729.1 06/23/2015 MADL, SCOUT L DISTANCE LEARNING COORDINATOR Ot 786.50 06/23/2015 Ot 278.00 06/23/2015 Ot 424.0 06/23/2015 Ot 786.50 06/26/2015 MADL, SCOUT L DISTANCE LEARNING COORDINATOR Ot 278.02 06/26/2015 MADL, SCOUT L DISTANCE LEARNING COORDINATOR Ot 729.1 06/26/2015 MADL, SCOUT L DISTANCE LEARNING COORDINATOR Ot 786.50 06/26/2015 Ot 278.00 06/26/2015 Ot 424.0 06/26/2015 Ot 786.50 10/06/2015 MADLUCILLE LozaA L DISTANCE LEARNING COORDINATOR Ot R10.2 10/10/2015 ISSA CRANDALL DISTANCE LEARNING COORDINATOR Ot M54.5 10/12/2015 MADISON GARCIA DO S Ot N83.20 UNSPECIFIED OVARIAN CYSTS 10/12/2015 MADISON GARCIA DO S Ot R10.2 PELVIC AND PERINEAL PAIN 10/25/2015 LUCILLE FERRAROA L DISTANCE LEARNING COORDINATOR Ot R10.2 10/25/2015 ISSA CRANDALL DISTANCE LEARNING COORDINATOR Ot M54.5 10/04/2016 KYM DO, LARA K Ot E66.9 OBESITY, UNSPECIFIED 10/04/2016 KYM DO, LARA K Ot I10 ESSENTIAL (PRIMARY) HYPERTENSION 10/04/2016 KYM DO, LARA K Ot N39.0 URINARY TRACT INFECTION, SITE NOT SPECIF 10/04/2016 YKM DO, LARA K Ot N73.9 FEMALE PELVIC INFLAMMATORY DISEASE, UNSP 10/04/2016 KYM DO, LARA K Ot R10.2 PELVIC AND PERINEAL PAIN 10/04/2016 KYM DO, LARA K Ot Z79.899 OTHER DRIVER WHEELCHAIR (CURRENT) DRUG THERAPY 10/04/2016 KYM DO, LARA K Ot Z97.5 PRESENCE OF (INTRAUTERINE) CONTRACEPTIVE 10/04/2016 MADL, SCOUT L DISTANCE LEARNING COORDINATOR Ot R10.2 PELVIC AND PERINEAL PAIN 10/07/2016 KYM DO, LARA K Ot E66.9 OBESITY, UNSPECIFIED 10/07/2016 KYM DO, LARA K Ot I10 ESSENTIAL (PRIMARY) HYPERTENSION 10/07/2016 KYM DO, LARA K Ot N39.0 URINARY TRACT INFECTION, SITE NOT SPECIF 10/07/2016 KYM DO, LARA K Ot N73.9 FEMALE PELVIC INFLAMMATORY DISEASE, UNSP 10/07/2016 KYM DO, LARA K Ot R10.2 PELVIC AND PERINEAL PAIN 10/07/2016 KYM DO, LARA K Ot Z79.899 OTHER DRIVER WHEELCHAIR (CURRENT) DRUG THERAPY 10/07/2016 KYM DO, LARA K Ot Z97.5 PRESENCE OF (INTRAUTERINE) CONTRACEPTIVE 10/14/2016 MADL, SCOUT L DISTANCE LEARNING COORDINATOR Ot R10.2 PELVIC AND PERINEAL PAIN 10/14/2016 MADL, SCOUT L DISTANCE LEARNING COORDINATOR Ot R10.2 PELVIC AND PERINEAL PAIN 10/14/2016 MADL, SCOUT L DISTANCE LEARNING COORDINATOR Ot R10.2 PELVIC AND PERINEAL PAIN 10/14/2016 ISSA CRANDALL DISTANCE LEARNING COORDINATOR Ot M54.5 LOW BACK PAIN 10/14/2016 MADL, SCOUT L DISTANCE LEARNING COORDINATOR Ot 278.02 OVERWEIGHT 10/14/2016 MADL, SCOUT L DISTANCE LEARNING COORDINATOR Ot 729.1 MYALGIA AND MYOSITIS NOS 10/14/2016 MADL, SCOUT L DISTANCE LEARNING COORDINATOR Ot 786.50 CHEST PAIN NOS 10/14/2016 Ot 278.00 OBESITY, NOS 10/14/2016 Ot 424.0 MITRAL VALVE DISORDER 10/14/2016 Ot 786.50 CHEST PAIN NOS 10/14/2016 MADL, SCOUT L DISTANCE LEARNING COORDINATOR Ot R10.2 PELVIC AND PERINEAL PAIN 10/14/2016 MADL, SCOUT L DISTANCE LEARNING COORDINATOR Ot 278.02 OVERWEIGHT 10/14/2016 MADL, SCOUT L DISTANCE LEARNING COORDINATOR Ot 729.1 MYALGIA AND MYOSITIS NOS 10/14/2016 MADL, SCOUT L DISTANCE LEARNING COORDINATOR Ot 786.50 CHEST PAIN NOS 10/14/2016 MADL, SCOUT L DISTANCE LEARNING COORDINATOR Ot 278.02 OVERWEIGHT 10/14/2016 MADL, SCOUT L DISTANCE LEARNING COORDINATOR Ot 729.1 MYALGIA AND MYOSITIS NOS 10/14/2016 MADL, SCOUT L DISTANCE LEARNING COORDINATOR Ot 786.50 CHEST PAIN NOS 10/14/2016 Ot 278.00 OBESITY, NOS 10/14/2016 Ot 424.0 MITRAL VALVE DISORDER 10/14/2016 Ot 786.50 CHEST PAIN NOS 10/15/2016 MADL, SCOUT L DISTANCE LEARNING COORDINATOR Ot R10.2 PELVIC AND PERINEAL PAIN 10/24/2016 MADL, SCOUT L DISTANCE LEARNING COORDINATOR Ot 278.02 OVERWEIGHT 10/24/2016 MADL, SCOUT L DISTANCE LEARNING COORDINATOR Ot 729.1 MYALGIA AND MYOSITIS NOS 10/24/2016 MADL, SCOUT L DISTANCE LEARNING COORDINATOR Ot 786.50 CHEST PAIN NOS 10/24/2016 Ot 278.00 OBESITY, NOS 10/24/2016 Ot 424.0 MITRAL VALVE DISORDER 10/24/2016 Ot 786.50 CHEST PAIN NOS 10/24/2016 MADL, SCOUT L DISTANCE LEARNING COORDINATOR Ot 278.02 OVERWEIGHT 10/24/2016 MADL, SCOUT L DISTANCE LEARNING COORDINATOR Ot 729.1 MYALGIA AND MYOSITIS NOS 10/24/2016 MADL, SCOUT L DISTANCE LEARNING COORDINATOR Ot 786.50 CHEST PAIN NOS 10/24/2016 Ot 278.00 OBESITY, NOS 10/24/2016 Ot 424.0 MITRAL VALVE DISORDER 10/24/2016 Ot 786.50 CHEST PAIN NOS 10/24/2016 MADL, SCOUT L DISTANCE LEARNING COORDINATOR Ot R10.2 PELVIC AND PERINEAL PAIN 10/24/2016 ISSA CRANDALL DISTANCE LEARNING COORDINATOR Ot M54.5 LOW BACK PAIN 10/24/2016 MADL, SCOUT L DISTANCE LEARNING COORDINATOR Ot R10.2 PELVIC AND PERINEAL PAIN 10/29/2016 MADL, SCOUT L DISTANCE LEARNING COORDINATOR Ot R10.2 PELVIC AND PERINEAL PAIN 10/30/2016 MADL, SCOUT L DISTANCE LEARNING COORDINATOR Ot 278.02 OVERWEIGHT 10/30/2016 MADL, SCOUT L DISTANCE LEARNING COORDINATOR Ot 729.1 MYALGIA AND MYOSITIS NOS 10/30/2016 MADL, SCOUT L DISTANCE LEARNING COORDINATOR Ot 786.50 CHEST PAIN NOS 10/30/2016 Ot 278.00 OBESITY, NOS 10/30/2016 Ot 424.0 MITRAL VALVE DISORDER 10/30/2016 Ot 786.50 CHEST PAIN NOS 10/30/2016 MADL, SCOUT L DISTANCE LEARNING COORDINATOR Ot R10.2 PELVIC AND PERINEAL PAIN 10/30/2016 KARLEY ISSA Sujata DISTANCE LEARNING COORDINATOR Ot M54.5 LOW BACK PAIN 10/30/2016 MADL, SCOUT L DISTANCE LEARNING COORDINATOR Ot R10.2 PELVIC AND PERINEAL PAIN 10/30/2016 MADL, SCOUT L DISTANCE LEARNING COORDINATOR Ot 278.02 OVERWEIGHT 10/30/2016 MADL, SCOUT L DISTANCE LEARNING COORDINATOR Ot 729.1 MYALGIA AND MYOSITIS NOS 10/30/2016 MADL, SCOUT L DISTANCE LEARNING COORDINATOR Ot 786.50 CHEST PAIN NOS 10/30/2016 Ot 278.00 OBESITY, NOS 10/30/2016 Ot 424.0 MITRAL VALVE DISORDER 10/30/2016 Ot 786.50 CHEST PAIN NOS 10/30/2016 MADL, SCOUT L DISTANCE LEARNING COORDINATOR Ot R10.2 PELVIC AND PERINEAL PAIN 10/30/2016 KARLEY ISSA A DISTANCE LEARNING COORDINATOR Ot M54.5 LOW BACK PAIN 10/30/2016 MADL, SCOUT L DISTANCE LEARNING COORDINATOR Ot R10.2 PELVIC AND PERINEAL PAIN 10/30/2016 MADISON GARCIA DO Ot N83.209 UNSPECIFIED OVARIAN CYST, UNSPECIFIED SI 10/30/2016 MADISON GARCIA DO Ot R10.2 PELVIC AND PERINEAL PAIN 10/30/2016 MADISON GARCIA DO S Ot Z01.812 ENCOUNTER FOR PREPROCEDURAL LABORATORY E 10/30/2016 RADHA GOMEZ MADISON Jones Ot Z11.2 ENCOUNTER FOR SCREENING FOR OTHER BACTER 10/31/2016 RADHA GOMEZ MADISON Jones Ot N83.209 UNSPECIFIED OVARIAN CYST, UNSPECIFIED SI 10/31/2016 RADHA GOMEZ MADISON Jones Ot R10.2 PELVIC AND PERINEAL PAIN 10/31/2016 RADHA GOMEZ MADISON Jones Ot Z01.812 ENCOUNTER FOR PREPROCEDURAL LABORATORY E 10/31/2016 RADHA GOMEZ MADISON Jones Ot Z11.2 ENCOUNTER FOR SCREENING FOR OTHER BACTER 10/31/2016 RADHA GOMEZ MADISON Jones Ot N83.202 UNSPECIFIED OVARIAN CYST, LEFT SIDE 11/04/2016 RADHA GOMEZ MADISON Jones Ot N83.202 UNSPECIFIED OVARIAN CYST, LEFT SIDE 11/05/2016 RADHA GOMEZ MADISON Jones Ot N83.202 UNSPECIFIED OVARIAN CYST, LEFT SIDE 03/17/2017 LUCILLE FERRAROA L DISTANCE LEARNING COORDINATOR Ot 278.02 OVERWEIGHT 03/17/2017 LUCILLE FERRAROA L DISTANCE LEARNING COORDINATOR Ot 729.1 MYALGIA AND MYOSITIS NOS 03/17/2017 MADL SCOUT L DISTANCE LEARNING COORDINATOR Ot 786.50 CHEST PAIN NOS 03/17/2017 Ot 278.00 OBESITY, NOS 03/17/2017 Ot 424.0 MITRAL VALVE DISORDER 03/17/2017 Ot 786.50 CHEST PAIN NOS 03/17/2017 MADL SCOUT L DISTANCE LEARNING COORDINATOR Ot R10.2 PELVIC AND PERINEAL PAIN 03/17/2017 ISSA CRANDALL DISTANCE LEARNING COORDINATOR Ot M54.5 LOW BACK PAIN 03/17/2017 MADL SCOUT L DISTANCE LEARNING COORDINATOR Ot R10.2 PELVIC AND PERINEAL PAIN 04/02/2017 MADL, SCOUT L DISTANCE LEARNING COORDINATOR Ot E04.1 NONTOXIC SINGLE THYROID NODULE 04/02/2017 MADL SCOUT L DISTANCE LEARNING COORDINATOR Ot Z86.39 PERSONAL HISTORY OF ENDO, NUTRITIONAL AN 04/04/2017 MADL, SCOUT L DISTANCE LEARNING COORDINATOR Ot R10.2 PELVIC AND PERINEAL PAIN 04/04/2017 NOAHL SCOUT L DISTANCE LEARNING COORDINATOR Ot Z90.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, UNILATERAL 04/04/2017 MADL SCOUT L DISTANCE LEARNING COORDINATOR Ot Z97.5 PRESENCE OF (INTRAUTERINE) CONTRACEPTIVE 04/07/2017 MADL, SCOUT L DISTANCE LEARNING COORDINATOR Ot E04.1 NONTOXIC SINGLE THYROID NODULE 04/07/2017 MADL, SCOUT L DISTANCE LEARNING COORDINATOR Ot Z86.39 PERSONAL HISTORY OF ENDO, NUTRITIONAL AN 04/14/2017 MADL, SCOUT L DISTANCE LEARNING COORDINATOR Ot R10.2 PELVIC AND PERINEAL PAIN 04/14/2017 MADL, SCOUT L DISTANCE LEARNING COORDINATOR Ot Z90.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, UNILATERAL 04/14/2017 MADL, SCOUT L DISTANCE LEARNING COORDINATOR Ot Z97.5 PRESENCE OF (INTRAUTERINE) CONTRACEPTIVE 04/14/2017 MADL, SCOUT L DISTANCE LEARNING COORDINATOR Ot R10.2 PELVIC AND PERINEAL PAIN 04/14/2017 MADL, SCOUT L DISTANCE LEARNING COORDINATOR Ot Z90.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, UNILATERAL 04/14/2017 MADL, SCOUT L DISTANCE LEARNING COORDINATOR Ot Z97.5 PRESENCE OF (INTRAUTERINE) CONTRACEPTIVE 04/16/2017 MADL, SCOUT L DISTANCE LEARNING COORDINATOR Ot R10.2 PELVIC AND PERINEAL PAIN 04/16/2017 MADL, SCOUT L DISTANCE LEARNING COORDINATOR Ot Z90.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, UNILATERAL 04/16/2017 MADL, SCOUT L DISTANCE LEARNING COORDINATOR Ot Z97.5 PRESENCE OF (INTRAUTERINE) CONTRACEPTIVE 04/18/2017 MADL, SCOUT L DISTANCE LEARNING COORDINATOR Ot R10.2 PELVIC AND PERINEAL PAIN 04/18/2017 MADL, SCOUT L DISTANCE LEARNING COORDINATOR Ot Z90.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, UNILATERAL 04/18/2017 MADL, SCOUT L DISTANCE LEARNING COORDINATOR Ot Z97.5 PRESENCE OF (INTRAUTERINE) CONTRACEPTIVE 02/06/2018 MADL, SCOUT L DISTANCE LEARNING COORDINATOR Ot 278.02 OVERWEIGHT 02/06/2018 MADL, SCOUT L DISTANCE LEARNING COORDINATOR Ot 729.1 MYALGIA AND MYOSITIS NOS 02/06/2018 MADL, SCOUT L DISTANCE LEARNING COORDINATOR Ot 786.50 CHEST PAIN NOS 02/06/2018 Ot 278.00 OBESITY, NOS 02/06/2018 Ot 424.0 MITRAL VALVE DISORDER 02/06/2018 Ot 786.50 CHEST PAIN NOS 02/06/2018 MADL, SCOUT L DISTANCE LEARNING COORDINATOR Ot E04.1 NONTOXIC SINGLE THYROID NODULE 02/06/2018 MADL, SCOUT L DISTANCE LEARNING COORDINATOR Ot Z86.39 PERSONAL HISTORY OF ENDO, NUTRITIONAL AN 02/08/2018 MADL, SCOUT L DISTANCE LEARNING COORDINATOR Ot 278.02 OVERWEIGHT 02/08/2018 MADL, SCOUT L DISTANCE LEARNING COORDINATOR Ot 729.1 MYALGIA AND MYOSITIS NOS 02/08/2018 MADL, SCOUT L DISTANCE LEARNING COORDINATOR Ot 786.50 CHEST PAIN NOS 02/08/2018 Ot 278.00 OBESITY, NOS 02/08/2018 Ot 424.0 MITRAL VALVE DISORDER 02/08/2018 Ot 786.50 CHEST PAIN NOS 02/08/2018 MADL, SCOUT L DISTANCE LEARNING COORDINATOR Ot E04.1 NONTOXIC SINGLE THYROID NODULE 02/08/2018 MADL, SCOUT L DISTANCE LEARNING COORDINATOR Ot Z86.39 PERSONAL HISTORY OF ENDO, NUTRITIONAL AN 02/08/2018 MADL, SCOUT L DISTANCE LEARNING COORDINATOR Ot 278.02 OVERWEIGHT 02/08/2018 MADL, SCOUT L DISTANCE LEARNING COORDINATOR Ot 729.1 MYALGIA AND MYOSITIS NOS 02/08/2018 MADL, SCOUT L DISTANCE LEARNING COORDINATOR Ot 786.50 CHEST PAIN NOS 02/08/2018 Ot 278.00 OBESITY, NOS 02/08/2018 Ot 424.0 MITRAL VALVE DISORDER 02/08/2018 Ot 786.50 CHEST PAIN NOS 02/08/2018 MADL, SCOUT L DISTANCE LEARNING COORDINATOR Ot E04.1 NONTOXIC SINGLE THYROID NODULE 02/08/2018 MADL, SCOUT L DISTANCE LEARNING COORDINATOR Ot Z86.39 PERSONAL HISTORY OF ENDO, NUTRITIONAL AN 02/09/2018 VICKIE REGAN APRN Ot E55.9 VITAMIN D DEFICIENCY, UNSPECIFIED 02/09/2018 VICKIE REGAN APRN Ot M25.552 PAIN IN LEFT HIP 02/09/2018 VICKIE REGAN APRN Ot M79.7 FIBROMYALGIA 02/09/2018 VICKIE REGAN APRN Ot R76.8 OTHER SPECIFIED ABNORMAL IMMUNOLOGICAL F 02/14/2018 ZENOBIA QUICK MD Ot M79.1 MYALGIA 02/14/2018 ZENOBIA QUICK MD Ot R76.8 OTHER SPECIFIED ABNORMAL IMMUNOLOGICAL F 02/14/2018 ZENOBIA QUICK MD Ot R79.82 ELEVATED C-REACTIVE PROTEIN (CRP) 02/18/2018 SCOUT FERRARO L DISTANCE LEARNING COORDINATOR Ot 278.02 OVERWEIGHT 02/18/2018 SCOUT FERRARO L DISTANCE LEARNING COORDINATOR Ot 729.1 MYALGIA AND MYOSITIS NOS 02/18/2018 MADLUCILLE LozaA L DISTANCE LEARNING COORDINATOR Ot 786.50 CHEST PAIN NOS 02/18/2018 Ot 278.00 OBESITY, NOS 02/18/2018 Ot 424.0 MITRAL VALVE DISORDER 02/18/2018 Ot 786.50 CHEST PAIN NOS 02/18/2018 SCOUT FERRARO L DISTANCE LEARNING COORDINATOR Ot E04.1 NONTOXIC SINGLE THYROID NODULE 02/18/2018 LUCILLE FERRAROA L DISTANCE LEARNING COORDINATOR Ot Z86.39 PERSONAL HISTORY OF ENDO, NUTRITIONAL AN 02/18/2018 ZENOBIA QUICK MD Ot M79.1 MYALGIA 02/18/2018 ZENOBIA QUICK MD Ot R76.8 OTHER SPECIFIED ABNORMAL IMMUNOLOGICAL F 02/18/2018 ZENOBIA QUICK MD Ot R79.82 ELEVATED C-REACTIVE PROTEIN (CRP) 02/18/2018 VICKIE REGAN APRN Ot E55.9 VITAMIN D DEFICIENCY, UNSPECIFIED 02/18/2018 VICKIE REGAN APRN Ot M25.552 PAIN IN LEFT HIP 02/18/2018 VICKIE REGAN APRN Ot M79.7 FIBROMYALGIA 02/18/2018 VICKIE REGAN APRN Ot R76.8 OTHER SPECIFIED ABNORMAL IMMUNOLOGICAL F 02/23/2018 ZENOBIA QUICK MD Ot M79.1 MYALGIA 02/23/2018 ZENOBIA QUICK MD Ot R76.8 OTHER SPECIFIED ABNORMAL IMMUNOLOGICAL F 02/23/2018 ZENOBIA QUICK MD Ot R79.82 ELEVATED C-REACTIVE PROTEIN (CRP) 02/23/2018 VICKIE REGAN APRN Ot E55.9 VITAMIN D DEFICIENCY, UNSPECIFIED 02/23/2018 VICKIE REGAN APRN Ot M25.552 PAIN IN LEFT HIP 02/23/2018 VICKIE REGAN APRN Ot M79.7 FIBROMYALGIA 02/23/2018 VICKIE REGAN APRN Ot R76.8 OTHER SPECIFIED ABNORMAL IMMUNOLOGICAL F 02/27/2018 MADLSCOUT L DISTANCE LEARNING COORDINATOR Ot 278.02 OVERWEIGHT 02/27/2018 MADL, SCOUT L DISTANCE LEARNING COORDINATOR Ot 729.1 MYALGIA AND MYOSITIS NOS 02/27/2018 MADL, SCOUT L DISTANCE LEARNING COORDINATOR Ot 786.50 CHEST PAIN NOS 02/27/2018 Ot 278.00 OBESITY, NOS 02/27/2018 Ot 424.0 MITRAL VALVE DISORDER 02/27/2018 Ot 786.50 CHEST PAIN NOS 02/27/2018 MADL, SCOUT L DISTANCE LEARNING COORDINATOR Ot E04.1 NONTOXIC SINGLE THYROID NODULE 02/27/2018 MADL, SCOUT L DISTANCE LEARNING COORDINATOR Ot Z86.39 PERSONAL HISTORY OF ENDO, NUTRITIONAL AN 02/27/2018 ABDELRAHMAN ADKINS, ZENOBIA L Ot M79.1 MYALGIA 02/27/2018 CHEN QUICK MDN L Ot R76.8 OTHER SPECIFIED ABNORMAL IMMUNOLOGICAL F 02/27/2018 CHEN QUIKC MDN L Ot R79.82 ELEVATED C-REACTIVE PROTEIN (CRP) 02/27/2018 VICKIE REGAN EXHIBIT CARPENTER Ot E55.9 VITAMIN D DEFICIENCY, UNSPECIFIED 02/27/2018 VICKIE REGAN EXHIBIT CARPENTER Ot M25.552 PAIN IN LEFT HIP 02/27/2018 VICKIE REGAN EXHIBIT CARPENTER Ot M79.7 FIBROMYALGIA 02/27/2018 VICKIE REGAN EXHIBIT CARPENTER Ot R76.8 OTHER SPECIFIED ABNORMAL IMMUNOLOGICAL F 03/02/2018 NOAHL, SCOUT L DISTANCE LEARNING COORDINATOR Ot E04.1 NONTOXIC SINGLE THYROID NODULE 03/02/2018 NOAHL, SCOUT L DISTANCE LEARNING COORDINATOR Ot Z86.39 PERSONAL HISTORY OF ENDO, NUTRITIONAL AN 03/18/2018 MADL, SCOUT L DISTANCE LEARNING COORDINATOR Ot 278.02 OVERWEIGHT 03/18/2018 MADL, SCOUT L DISTANCE LEARNING COORDINATOR Ot 729.1 MYALGIA AND MYOSITIS NOS 03/18/2018 MADL, SCOUT L DISTANCE LEARNING COORDINATOR Ot 786.50 CHEST PAIN NOS 03/18/2018 Ot 278.00 OBESITY, NOS 03/18/2018 Ot 424.0 MITRAL VALVE DISORDER 03/18/2018 Ot 786.50 CHEST PAIN NOS 03/18/2018 MADL, SCOUT L DISTANCE LEARNING COORDINATOR Ot E04.1 NONTOXIC SINGLE THYROID NODULE 03/18/2018 SCOUT FERRARO L DISTANCE LEARNING COORDINATOR Ot Z86.39 PERSONAL HISTORY OF ENDO, NUTRITIONAL AN 03/18/2018 ZENOBIA QUICK MD Ot M79.1 MYALGIA 03/18/2018 ZENOBIA QUICK MD Ot R76.8 OTHER SPECIFIED ABNORMAL IMMUNOLOGICAL F 03/18/2018 ZENOBIA QUICK MD Ot R79.82 ELEVATED C-REACTIVE PROTEIN (CRP) 03/18/2018 VICKIE REGAN EXHIBIT CARPENTER Ot E55.9 VITAMIN D DEFICIENCY, UNSPECIFIED 03/18/2018 VICKIE REGAN EXHIBIT CARPENTER Ot M25.552 PAIN IN LEFT HIP 03/18/2018 VICKIE REGAN EXHIBIT CARPENTER Ot M79.7 FIBROMYALGIA 03/18/2018 VICKIE REGAN EXHIBIT CARPENTER Ot R76.8 OTHER SPECIFIED ABNORMAL IMMUNOLOGICAL F 04/01/2018 ZENOBIA QUICK MD Ot M79.1 MYALGIA 04/01/2018 ZENOBIA QUICK MD Ot R76.8 OTHER SPECIFIED ABNORMAL IMMUNOLOGICAL F 04/01/2018 ZENOBIA QUICK MD Ot R79.82 ELEVATED C-REACTIVE PROTEIN (CRP) 04/08/2018 ZENOBIA QUICK MD Ot M79.1 MYALGIA 04/08/2018 ZENOBIA QUICK MD Ot R76.8 OTHER SPECIFIED ABNORMAL IMMUNOLOGICAL F 04/08/2018 ZENOBIA QUICK MD Ot R79.82 ELEVATED C-REACTIVE PROTEIN (CRP) 04/15/2018 Ot 642.23 04/15/2018 Ot 654.23 04/15/2018 Ot V72.83 04/15/2018 Ot V74.8 04/15/2018 Ot 625.9 FEM GENITAL SYMPTOMS NOS 04/15/2018 LUCILLE FERRAROA L DISTANCE LEARNING COORDINATOR Ot 278.02 OVERWEIGHT 04/15/2018 SCOUT FERRARO L DISTANCE LEARNING COORDINATOR Ot 729.1 MYALGIA AND MYOSITIS NOS 04/15/2018 LUCILLE FERRAROA L DISTANCE LEARNING COORDINATOR Ot 786.50 CHEST PAIN NOS 04/15/2018 Ot 278.00 OBESITY, NOS 04/15/2018 Ot 424.0 MITRAL VALVE DISORDER 04/15/2018 Ot 786.50 CHEST PAIN NOS 04/15/2018 LUCILLE FERRAROA L DISTANCE LEARNING COORDINATOR Ot R10.2 PELVIC AND PERINEAL PAIN 04/15/2018 ISSA CRANDALL DISTANCE LEARNING COORDINATOR Ot M54.5 LOW BACK PAIN 04/15/2018 MADL, SCOUT Loza DISTANCE LEARNING COORDINATOR Ot R10.2 PELVIC AND PERINEAL PAIN 04/15/2018 MADL, SCOUT Loza DISTANCE LEARNING COORDINATOR Ot E04.1 NONTOXIC SINGLE THYROID NODULE 04/15/2018 MADL, SCOUT L DISTANCE LEARNING COORDINATOR Ot Z86.39 PERSONAL HISTORY OF ENDO, NUTRITIONAL AN 04/15/2018 MADL, SCOUT L DISTANCE LEARNING COORDINATOR Ot R10.2 PELVIC AND PERINEAL PAIN 04/15/2018 MADL, SCOUT L DISTANCE LEARNING COORDINATOR Ot Z90.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, UNILATERAL 04/15/2018 MADL, SCOUT L DISTANCE LEARNING COORDINATOR Ot Z97.5 PRESENCE OF (INTRAUTERINE) CONTRACEPTIVE 04/15/2018 ZENOBIA QUICK MD Ot M79.1 MYALGIA 04/15/2018 ZENOBIA QUICK MD Ot R76.8 OTHER SPECIFIED ABNORMAL IMMUNOLOGICAL F 04/15/2018 ZENOBIA QUICK MD Ot R79.82 ELEVATED C-REACTIVE PROTEIN (CRP) 04/15/2018 VICKIE REGAN EXHIBIT CARPENTER Ot E55.9 VITAMIN D DEFICIENCY, UNSPECIFIED 04/15/2018 VICKIE REGAN EXHIBIT CARPENTER Ot M25.552 PAIN IN LEFT HIP 04/15/2018 VICKIE REGAN EXHIBIT CARPENTER Ot M79.7 FIBROMYALGIA 04/15/2018 VICKIE REGAN EXHIBIT CARPENTER Ot R76.8 OTHER SPECIFIED ABNORMAL IMMUNOLOGICAL F 04/15/2018 Ot 642.23 04/15/2018 Ot 654.23 04/15/2018 Ot V72.83 04/15/2018 Ot V74.8 04/15/2018 Ot 625.9 FEM GENITAL SYMPTOMS NOS 04/15/2018 MADL, SCOUT L DISTANCE LEARNING COORDINATOR Ot 278.02 OVERWEIGHT 04/15/2018 MADL, SCOUT L DISTANCE LEARNING COORDINATOR Ot 729.1 MYALGIA AND MYOSITIS NOS 04/15/2018 MADL, SCOUT L DISTANCE LEARNING COORDINATOR Ot 786.50 CHEST PAIN NOS 04/15/2018 Ot 278.00 OBESITY, NOS 04/15/2018 Ot 424.0 MITRAL VALVE DISORDER 04/15/2018 Ot 786.50 CHEST PAIN NOS 04/15/2018 MADL, SCOUT L DISTANCE LEARNING COORDINATOR Ot R10.2 PELVIC AND PERINEAL PAIN 04/15/2018 ISSA CRANDALL DISTANCE LEARNING COORDINATOR Ot M54.5 LOW BACK PAIN 04/15/2018 MADL, SCOUT L DISTANCE LEARNING COORDINATOR Ot R10.2 PELVIC AND PERINEAL PAIN 04/15/2018 MADL, SCOUT L DISTANCE LEARNING COORDINATOR Ot E04.1 NONTOXIC SINGLE THYROID NODULE 04/15/2018 MADL, SCOUT L DISTANCE LEARNING COORDINATOR Ot Z86.39 PERSONAL HISTORY OF ENDO, NUTRITIONAL AN 04/15/2018 MADL, SCOUT L DISTANCE LEARNING COORDINATOR Ot R10.2 PELVIC AND PERINEAL PAIN 04/15/2018 MADL, SCOUT L DISTANCE LEARNING COORDINATOR Ot Z90.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, UNILATERAL 04/15/2018 MADL, SCOUT L DISTANCE LEARNING COORDINATOR Ot Z97.5 PRESENCE OF (INTRAUTERINE) CONTRACEPTIVE 04/15/2018 ZENOBIA QUICK MD L Ot M79.1 MYALGIA 04/15/2018 ZENOBIA QUICK MD Ot R76.8 OTHER SPECIFIED ABNORMAL IMMUNOLOGICAL F 04/15/2018 ZENOBIA QUICK MD L Ot R79.82 ELEVATED C-REACTIVE PROTEIN (CRP) 04/15/2018 VICKIE REGAN APRN Ot E55.9 VITAMIN D DEFICIENCY, UNSPECIFIED 04/15/2018 VICKIE REGAN APRN Ot M25.552 PAIN IN LEFT HIP 04/15/2018 VICKIE REGAN EXHIBIT CARPENTER Ot M79.7 FIBROMYALGIA 04/15/2018 VICKIE REGAN EXHIBIT CARPENTER Ot R76.8 OTHER SPECIFIED ABNORMAL IMMUNOLOGICAL F 05/29/2018 MADL, SCOUT L DISTANCE LEARNING COORDINATOR Ot 278.02 OVERWEIGHT 05/29/2018 MADL, SCOUT L DISTANCE LEARNING COORDINATOR Ot 729.1 MYALGIA AND MYOSITIS NOS 05/29/2018 MADL, SCOUT L DISTANCE LEARNING COORDINATOR Ot 786.50 CHEST PAIN NOS 05/29/2018 Ot 278.00 OBESITY, NOS 05/29/2018 Ot 424.0 MITRAL VALVE DISORDER 05/29/2018 Ot 786.50 CHEST PAIN NOS 05/29/2018 MADL, SCOUT L DISTANCE LEARNING COORDINATOR Ot E04.1 NONTOXIC SINGLE THYROID NODULE 05/29/2018 SCOUT FERRARO DISTANCE LEARNING COORDINATOR Ot Z86.39 PERSONAL HISTORY OF ENDO, NUTRITIONAL AN 05/29/2018 ZENOBIA QUICK MD Ot M79.1 MYALGIA 05/29/2018 ZENOBIA QUICK MD Ot R76.8 OTHER SPECIFIED ABNORMAL IMMUNOLOGICAL F 05/29/2018 ZENOBIA QUICK MD Ot R79.82 ELEVATED C-REACTIVE PROTEIN (CRP) 05/29/2018 VICKIE REGAN APRN Ot E55.9 VITAMIN D DEFICIENCY, UNSPECIFIED 05/29/2018 VICKIE REGAN APRN Ot M25.552 PAIN IN LEFT HIP 05/29/2018 VICKIE REGAN APRN Ot M79.7 FIBROMYALGIA 05/29/2018 VICKIE REGAN APRN Ot R76.8 OTHER SPECIFIED ABNORMAL IMMUNOLOGICAL F 06/11/2018 MADISON GARCIA DO S Ot N83.8 OTH NONINFLAMMATORY DISORD OF OVARY, FAL 06/11/2018 MADISON GARCIA DO Ot N94.10 UNSPECIFIED DYSPAREUNIA 06/11/2018 MADISON GARCIA DO Ot Z97.5 PRESENCE OF (INTRAUTERINE) CONTRACEPTIVE 06/29/2018 JASMINESCOUT DISTANCE LEARNING COORDINATOR Ot E04.1 NONTOXIC SINGLE THYROID NODULE 06/29/2018 JASMINESCOUT DISTANCE LEARNING COORDINATOR Ot Z86.39 PERSONAL HISTORY OF ENDO, NUTRITIONAL AN 06/29/2018 VICKIE REGAN APRN Ot E55.9 VITAMIN D DEFICIENCY, UNSPECIFIED 06/29/2018 VICKIE REGAN APRN Ot M25.552 PAIN IN LEFT HIP 06/29/2018 VICKIE REGAN APRN Ot M79.7 FIBROMYALGIA 06/29/2018 VICKIE REGAN APRN Ot R76.8 OTHER SPECIFIED ABNORMAL IMMUNOLOGICAL F 06/29/2018 SCOUT FERRARO DISTANCE LEARNING COORDINATOR Ot 278.02 OVERWEIGHT 06/29/2018 SCOUT FERRARO DISTANCE LEARNING COORDINATOR Ot 729.1 MYALGIA AND MYOSITIS NOS 06/29/2018 LUCILLE FERRAROA L DISTANCE LEARNING COORDINATOR Ot 786.50 CHEST PAIN NOS 06/29/2018 Ot 278.00 OBESITY, NOS 06/29/2018 Ot 424.0 MITRAL VALVE DISORDER 06/29/2018 Ot 786.50 CHEST PAIN NOS 06/29/2018 NOAHVANDANA LozaSCOUT Dago DISTANCE LEARNING COORDINATOR Ot E04.1 NONTOXIC SINGLE THYROID NODULE 06/29/2018 JASMINE SCOUT Dago DISTANCE LEARNING COORDINATOR Ot Z86.39 PERSONAL HISTORY OF ENDO, NUTRITIONAL AN 06/29/2018 ZENOBIA QUICK MD Ot M79.1 MYALGIA 06/29/2018 ZENOBIA QUICK MD Ot R76.8 OTHER SPECIFIED ABNORMAL IMMUNOLOGICAL F 06/29/2018 ZENOBIA QUICK MD Ot R79.82 ELEVATED C-REACTIVE PROTEIN (CRP) 06/29/2018 VICKIE REGAN EXHIBIT CARPENTER Ot E55.9 VITAMIN D DEFICIENCY, UNSPECIFIED 06/29/2018 VICKIE REGAN EXHIBIT CARPENTER Ot M25.552 PAIN IN LEFT HIP 06/29/2018 VICKIE REGAN APRN Ot M79.7 FIBROMYALGIA 06/29/2018 VICKIE REGAN APRN Ot R76.8 OTHER SPECIFIED ABNORMAL IMMUNOLOGICAL F 06/29/2018 MADISON GARCIA DO Ot N83.8 OTH NONINFLAMMATORY DISORD OF OVARY, FAL 06/29/2018 MADISON GARCIA DO Ot N94.10 UNSPECIFIED DYSPAREUNIA 06/29/2018 MADISON GARCIA DO Ot Z97.5 PRESENCE OF (INTRAUTERINE) CONTRACEPTIVE 07/20/2018 ISSA CRANDALL Ot M54.5 LOW BACK PAIN 07/22/2018 MADISON GARCIA DO Ot N83.292 OTHER OVARIAN CYST, LEFT SIDE 07/22/2018 MADISON GARCIA DO Ot Z90.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, UNILATERAL 08/05/2018 ZENOBIA QUICK MD Ot M79.1 MYALGIA 08/05/2018 ZENOBIA QUICK MD Ot R76.8 OTHER SPECIFIED ABNORMAL IMMUNOLOGICAL F 08/05/2018 ZENOBIA QUICK MD Ot R79.82 ELEVATED C-REACTIVE PROTEIN (CRP) 08/27/2018 MADISON GARCIA DO Ot N83.292 OTHER OVARIAN CYST, LEFT SIDE 08/27/2018 MADISON GARCIA DO Ot Z90.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, UNILATERAL 09/21/2018 ISSA CRANDALL DISTANCE LEARNING COORDINATOR Ot M54.5 LOW BACK PAIN 09/21/2018 [facility] MADISON Jones Ot N83.292 OTHER OVARIAN CYST, LEFT SIDE 09/21/2018 MADISON GARCIA DO Ot Z90.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, UNILATERAL 09/29/2018 RADHA GOMEZ, MADISON Jones Ot N83.292 OTHER OVARIAN CYST, LEFT SIDE 10/08/2018 MADISON GARCIA DO Ot N83.292 OTHER OVARIAN CYST, LEFT SIDE 10/08/2018 [facility] MADISON Jones Ot N83.8 OTH NONINFLAMMATORY DISORD OF OVARY, FAL 10/08/2018 MADISON GARCIA DO Ot N94.10 UNSPECIFIED DYSPAREUNIA 10/08/2018 RADHA GOMEZ, MADISON Jones Ot Z97.5 PRESENCE OF (INTRAUTERINE) CONTRACEPTIVE 10/08/2018 JASMINE SCOUT L DISTANCE LEARNING COORDINATOR Ot 278.02 OVERWEIGHT 10/08/2018 SCOUT FERRARO DISTANCE LEARNING COORDINATOR Ot 729.1 MYALGIA AND MYOSITIS NOS 10/08/2018 SCOUT FERRARO DISTANCE LEARNING COORDINATOR Ot 786.50 CHEST PAIN NOS 10/08/2018 Ot 278.00 OBESITY, NOS 10/08/2018 Ot 424.0 MITRAL VALVE DISORDER 10/08/2018 Ot 786.50 CHEST PAIN NOS 10/08/2018 JASMINE SCOUT L DISTANCE LEARNING COORDINATOR Ot E04.1 NONTOXIC SINGLE THYROID NODULE 10/08/2018 JASMINE SCOUT L DISTANCE LEARNING COORDINATOR Ot Z86.39 PERSONAL HISTORY OF ENDO, NUTRITIONAL AN 10/08/2018 ZENOBIA QUICK MD Ot M79.1 MYALGIA 10/08/2018 ZENOBIA QUICK MD Ot R76.8 OTHER SPECIFIED ABNORMAL IMMUNOLOGICAL F 10/08/2018 ZENOBIA QUICK MD Ot R79.82 ELEVATED C-REACTIVE PROTEIN (CRP) 10/08/2018 VICKIE REGAN APRN Ot E55.9 VITAMIN D DEFICIENCY, UNSPECIFIED 10/08/2018 VICKIE REGAN APRN Ot M25.552 PAIN IN LEFT HIP 10/08/2018 VICKIE REGAN APRN Ot M79.7 FIBROMYALGIA 10/08/2018 VICKIE REGAN APRN Ot R76.8 OTHER SPECIFIED ABNORMAL IMMUNOLOGICAL F 10/08/2018 RADHA GOMEZ MADISON Karen Ot N83.8 OTH NONINFLAMMATORY DISORD OF OVARY, FAL 10/08/2018 RADHA GOMEZ MADISON Karen Ot N94.10 UNSPECIFIED DYSPAREUNIA 10/08/2018 RADHA GOMEZ MADISON Karen Ot Z97.5 PRESENCE OF (INTRAUTERINE) CONTRACEPTIVE 10/08/2018 RADHA GOMEZ MADISON Jones Ot N83.292 OTHER OVARIAN CYST, LEFT SIDE 10/08/2018 RADHA GOMEZ MADISON Jones Ot Z90.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, UNILATERAL 10/08/2018 RADHA GOMEZ MADISON Jones Ot N83.292 OTHER OVARIAN CYST, LEFT SIDE 10/26/2018 RADHA GOMEZ MADISON Jones Ot N83.292 OTHER OVARIAN CYST, LEFT SIDE 2018 RADHA GOMEZMADISON Ot Z01.818 ENCOUNTER FOR OTHER PREPROCEDURAL EXAMIN 11/03/2018 RADHA MADISON GOMEZ Ot Z01.818 ENCOUNTER FOR OTHER PREPROCEDURAL EXAMIN 11/04/2018 SCOUT FERRARO DISTANCE LEARNING COORDINATOR Ot 278.02 OVERWEIGHT 11/04/2018 SCOUT FERRARO DISTANCE LEARNING COORDINATOR Ot 729.1 MYALGIA AND MYOSITIS NOS 11/04/2018 SCOUT FERRARO DISTANCE LEARNING COORDINATOR Ot 786.50 CHEST PAIN NOS 11/04/2018 Ot 278.00 OBESITY, NOS 11/04/2018 Ot 424.0 MITRAL VALVE DISORDER 11/04/2018 Ot 786.50 CHEST PAIN NOS 11/04/2018 SCOUT FERRARO DISTANCE LEARNING COORDINATOR Ot E04.1 NONTOXIC SINGLE THYROID NODULE 11/04/2018 SCOUT FERRARO DISTANCE LEARNING COORDINATOR Ot Z86.39 PERSONAL HISTORY OF ENDO, NUTRITIONAL AN 11/04/2018 ZENOBIA QUICK MD Ot M79.1 MYALGIA 11/04/2018 ZENOBIA QUICK MD Ot R76.8 OTHER SPECIFIED ABNORMAL IMMUNOLOGICAL F 11/04/2018 ZEONBIA QUICK MD Ot R79.82 ELEVATED C-REACTIVE PROTEIN (CRP) 11/04/2018 VICKIE REGAN APRN Ot E55.9 VITAMIN D DEFICIENCY, UNSPECIFIED 11/04/2018 VICKIE REGAN APRN Ot M25.552 PAIN IN LEFT HIP 11/04/2018 VICKIE REGAN APRN Ot M79.7 FIBROMYALGIA 11/04/2018 VICKIE REGAN EXHIBIT CARPENTER Ot R76.8 OTHER SPECIFIED ABNORMAL IMMUNOLOGICAL F 11/04/2018 RADHA MADISON GOMEZ Ot N83.8 OTH NONINFLAMMATORY DISORD OF OVARY, FAL 11/04/2018 PATRICIAMADISON CARRERA DO Ot N94.10 UNSPECIFIED DYSPAREUNIA 11/04/2018 PATRICIAMADISON CARRERA DO Ot Z97.5 PRESENCE OF (INTRAUTERINE) CONTRACEPTIVE 11/04/2018 PATRICIAMADISON CARRERA DO Ot N83.292 OTHER OVARIAN CYST, LEFT SIDE 11/04/2018 RADHA DO MADISON Jones Ot Z90.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, UNILATERAL 11/04/2018 PATRICIADEANDRE GOMEZ MADISON Jones Ot N83.292 OTHER OVARIAN CYST, LEFT SIDE Procedures Code Description Performed By Performed On 74.1 LOW CERVICAL 04/28/2006 74.1 LOW CERVICAL 01/03/2009 Results Test Result Range Complete urinalysis with reflex to culture - 10/04/16 22:16 Urine color determination YELLOW NRG Urine clarity determination SLIGHTLY CLOUDY NRG Urine pH measurement by test strip 6 5-9 Specific gravity of urine by test strip 1.020 1.016- 1.022 Urine protein assay by test strip, semi-quantitative NEGATIVE NEGATIVE Urine glucose detection by automated test strip NEGATIVE NEGATIVE Erythrocytes detection in urine sediment by light microscopy 2+ NEGATIVE Urine ketones detection by automated test strip NEGATIVE NEGATIVE Urine nitrite detection by test strip NEGATIVE NEGATIVE Urine total bilirubin detection by test strip NEGATIVE NEGATIVE Urine urobilinogen measurement by automated test strip (mass/volume) 1 mg/dL NORMAL Urine leukocyte esterase detection by dipstick 2+ NEGATIVE Automated urine sediment erythrocyte count by microscopy (number/high power field) RARE NRG Automated urine sediment leukocyte count by microscopy (number/high power field ) [HPF] NRG Bacteria detection in urine sediment by light microscopy MODERATE NRG Squamous epithelial cells detection in urine sediment by light microscopy 10-25 NRG Crystals detection in urine sediment by light microscopy NONE NRG Casts detection in urine sediment by light microscopy NONE NRG Mucus detection in urine sediment by light microscopy NEGATIVE NRG Complete urinalysis with reflex to culture YES NRG Bacterial urine culture - 10/04/16 22:16 URINE CULTURE RESULTS 10,000/ML - 100,000/ML NRG Bacteria identification in genital specimen by aerobe culture - 10/04/16 23:00 Bacteria identification in genital specimen by aerobe culture NORMAL NRG Microscopic examination by CARLOS preparation - 10/04/16 23:00 Microscopic examination by CARLOS preparation TNP NRG Microscopic examination by wet preparation - 10/04/16 23:00 WET PREP RESULTS ER 10/04 23:23 BY C FERMÍN NRG Chlamydia trachomatis DNA detection by probe and signal amplification method - 10/04/16 23:00 Chlamydia trachomatis DNA detection by probe and target amplification method Negative NEG Neisseria gonorrhoeae DNA detection by probe and signal amplification method - 10/04/16 23:00 Gonorrhea amp DNA-urine Negative NEG Complete blood count (CBC) with automated white blood cell (WBC) differential - 10/30/16 08:40 Blood leukocytes automated count (number/volume) 6.1 10*3/uL 4.3-11.0 Blood erythrocytes automated count (number/volume) 5.19 10*6/uL 4.35-5.85 Venous blood hemoglobin measurement (mass/volume) 14.8 g/dL 11.5-16.0 Blood hematocrit (volume fraction) 44 % 35-52 Automated erythrocyte mean corpuscular volume 85 [foz_us] 80-99 Automated erythrocyte mean corpuscular hemoglobin (mass per erythrocyte) 29 pg 25-34 Automated erythrocyte mean corpuscular hemoglobin concentration measurement ( mass/volume) 34 g/dL 32-36 Automated erythrocyte distribution width ratio 13.4 % 10.0-14.5 Automated blood platelet count (count/volume) 257 10*3/uL 130-400 Automated blood platelet mean volume measurement 10.3 [foz_us] 7.4-10.4 Automated blood neutrophils/100 leukocytes 72 % 42-75 Automated blood lymphocytes/100 leukocytes 20 % 12-44 Blood monocytes/100 leukocytes 7 % 0-12 Automated blood eosinophils/100 leukocytes 2 % 0-10 Automated blood basophils/100 leukocytes 0 % 0-10 Blood neutrophils automated count (number/volume) 4.4 10*3 1.8-7.8 Blood lymphocytes automated count (number/volume) 1.2 10*3 1.0-4.0 Blood monocytes automated count (number/volume) 0.4 10*3 0.0-1.0 Automated eosinophil count 0.1 10*3/uL 0.0-0.3 Automated blood basophil count (count/volume) 0.0 10*3/uL 0.0-0.1 Blood type T Indirect antibody screen panel - 10/30/16 08:40 ABO+Rh group AP NRG Blood group antibody screen NEGATIVE NRG Urine beta human chorionic gonadotropin (hCG) measurement - 10/30/16 08:45 Urine beta human chorionic gonadotropin (hCG) measurement NEGATIVE NEGATIVE Blood type T Indirect antibody screen panel - 10/31/16 08:05 ABO+Rh group AP NRG Transfusion band number [id number] NRG Blood group antibody screen NEGATIVE NRG Automated blood complete blood count (hemogram) panel - 02/06/18 10:07 Blood leukocytes automated count (number/volume) 7.1 10*3/uL 4.3-11.0 Blood erythrocytes automated count (number/volume) 5.26 10*6/uL 4.35-5.85 Venous blood hemoglobin measurement (mass/volume) 15.1 g/dL 11.5-16.0 Blood hematocrit (volume fraction) 44 % 35-52 Automated erythrocyte mean corpuscular volume 84 [foz_us] 80-99 Automated erythrocyte mean corpuscular hemoglobin (mass per erythrocyte) 29 pg 25-34 Automated erythrocyte mean corpuscular hemoglobin concentration measurement ( mass/volume) 34 g/dL 32-36 Automated erythrocyte distribution width ratio 13.6 % 10.0-14.5 Automated blood platelet count (count/volume) 252 10*3/uL 130-400 Automated blood platelet mean volume measurement 10.4 [foz_us] 7.4-10.4 Comprehensive metabolic panel - 02/06/18 10:07 Serum or plasma sodium measurement (moles/volume) 140 mmol/L 135-145 Serum or plasma potassium measurement (moles/volume) 4.5 mmol/L 3.6-5.0 Serum or plasma chloride measurement (moles/volume) 108 mmol/L 98-107 Carbon dioxide 23 mmol/L 21-32 Serum or plasma anion gap determination (moles/volume) 9 mmol/L 5-14 Serum or plasma urea nitrogen measurement (mass/volume) 9 mg/dL 7-18 Serum or plasma creatinine measurement (mass/volume) 0.71 mg/dL 0.60-1.30 Serum or plasma urea nitrogen/creatinine mass ratio 13 NRG Serum or plasma creatinine measurement with calculation of estimated glomerular filtration rate > NRG Serum or plasma glucose measurement (mass/volume) 95 mg/dL 70-105 Serum or plasma calcium measurement (mass/volume) 9.3 mg/dL 8.5-10.1 Serum or plasma total bilirubin measurement (mass/volume) 0.8 mg/dL 0.1-1.0 Serum or plasma alkaline phosphatase measurement (enzymatic activity/volume) 85 U/L 40-136 Serum or plasma aspartate aminotransferase measurement (enzymatic activity/ volume) 22 U/L 5-34 Serum or plasma alanine aminotransferase measurement (enzymatic activity/volume ) 35 U/L 0-55 Serum or plasma protein measurement (mass/volume) 7.6 g/dL 6.4-8.2 Serum or plasma albumin measurement (mass/volume) 4.6 g/dL 3.2-4.5 Serum or plasma C reactive protein measurement (mass/volume) - 02/06/18 10:07 Serum or plasma C reactive protein measurement (mass/volume) 1.18 mg /dL 0.00-0.50 Erythrocyte sedimentation rate by westergren method - 02/06/18 10:07 Erythrocyte sedimentation rate by westergren method 4 mm 0-20 Serum DNA double strand antibody detection - 02/06/18 10:07 Serum DNA double strand antibody assay (units/volume) 70 [iU]/mL 0-26 DNA CONFIRM <1:10 NRG Serum or plasma complement C3 measurement (mass/volume) - 02/06/18 10:07 Complement C3 nephritic [mass/volume] in serum or plasma 161 % 73-183 Complement C4 [mass/volume] in serum or plasma - 02/06/18 10:07 Complement C4 [mass/volume] in serum or plasma 26 % 15- 59 Serum or plasma intact pararthyroid hormone measurement (mass/volume) - 10:07 Serum or plasma intact parathyroid hormone measurement (mass/volume) 61.0 pg/mL 10.0-65.0 Bio-intact parathyroid hormone (PTH) measurement with calcium 9.3 % 8.5-10.5 VITAMIN D 25-HYDROXY - 02/06/18 10:07 VITAMIN D 25-HYDROXY (TOTAL) 24 % 30-100 Scl-70 antibody assay - 02/06/18 10:07 [id number] Negative Negative Scl-70 ab < % 0.0-19.9 Serum centromere antibody assay (units/volume) - 02/06/18 10:07 Serum centromere antibody detection <1.0 NEG <1.0 NEGATIVE Complete urinalysis with reflex to culture - 02/06/18 10:11 Urine color determination YELLOW NRG Urine clarity determination CLEAR NRG Urine pH measurement by test strip 7 5-9 Specific gravity of urine by test strip 1.010 1.016- 1.022 Urine protein assay by test strip, semi-quantitative NEGATIVE NEGATIVE Urine glucose detection by automated test strip NEGATIVE NEGATIVE Erythrocytes detection in urine sediment by light microscopy NEGATIVE NEGATIVE Urine ketones detection by automated test strip NEGATIVE NEGATIVE Urine nitrite detection by test strip NEGATIVE NEGATIVE Urine total bilirubin detection by test strip NEGATIVE NEGATIVE Urine urobilinogen measurement by automated test strip (mass/volume) NORMAL NORMAL Urine leukocyte esterase detection by dipstick 3+ NEGATIVE Automated urine sediment erythrocyte count by microscopy (number/high power field) NONE NRG Automated urine sediment leukocyte count by microscopy (number/high power field ) [HPF] NRG Bacteria detection in urine sediment by light microscopy LARGE NRG Squamous epithelial cells detection in urine sediment by light microscopy >50 NRG Crystals detection in urine sediment by light microscopy NONE NRG Casts detection in urine sediment by light microscopy NONE NRG Mucus detection in urine sediment by light microscopy NEGATIVE NRG Complete urinalysis with reflex to culture YES NRG Bacterial urine culture - 02/06/18 10:11 Bacterial urine culture SEE COMMEN NRG COLONY COUNT . NRG FTX;REPORTABLE SENT TO [facility] 02/06/18 11:30 NRG URINE CULTURE RESULTS ( GROUP B STREP PRESENT) NRG Encounters ACCT No. Visit Date/Time Discharge Status Pt. Type Provider Facility Loc./Unit Complaint [id number] 2018 05:41:00 2018 13:44:00 DIS Outpatient MADISON GARCIA DO [facility] PREOP CPP, IUD IN PLACE [id number] 09/23/2018 12:45:00 09/23/2018 23:59:59 CLS Outpatient MADISON GARCIA DO [facility] RAD COMPLEX OVARIAN [id number] 07/20/2018 15:48:00 07/20/2018 23:59:59 CLS Outpatient MADISON GARCIA DO [facility] RAD COMPLEX OVARIAN CYST [id number] 05/29/2018 15:58:00 05/29/2018 23:59:59 CLS Outpatient MADISON GARCIA DO [facility] RAD ACUTE PELVIC PAIN FEMALE,DYSPAREUNIA IN FEMALE [id number] 02/06/2018 09:38:00 02/06/2018 23:59:59 CLS Outpatient VICKIE REGAN APRN [facility] LAB M79.7 [id number] 02/06/2018 09:30:00 02/06/2018 23:59:59 CLS Outpatient ZENOBIA QUICK MD [facility] LAB M25.50 [id number] 04/03/2017 14:50:00 04/03/2017 23:59:59 CLS Outpatient MADLLUCILLEA L DISTANCE LEARNING COORDINATOR [facility] RAD R10.2 PELVIC PAIN [id number] 03/17/2017 11:10:00 03/17/2017 23:59:59 CLS Outpatient MADL, SCOUT L DISTANCE LEARNING COORDINATOR [facility] RAD HX OF THYROID NODULE Z86.39 [id number] 10/31/2016 07:50:00 10/31/2016 13:45:00 DIS Outpatient MADISON GARCIA DO S [facility] SD PELVIC PAIN;OVARIAN CYSTS [id number] 10/30/2016 08:16:00 10/30/2016 09:51:00 DIS Outpatient MADISON GARCIA DO S [facility] PREOP PELVIC PAIN; OVARIAN CYSTS [id number] 10/14/2016 10:51:00 10/14/2016 23:59:59 CLS Outpatient VANDANA FERRAROWNYA L DISTANCE LEARNING COORDINATOR [facility] RAD PELVIC PAIN [id number] 10/04/2016 22:14:00 10/04/2016 23:42:00 DIS Emergency KYM LARA GOMEZ [facility] ER PELVIC PAIN [id number] 10/12/2015 07:55:00 10/12/2015 23:59:59 CLS Outpatient MADISON GARCIA DO S [facility] SDC RIGHT OVARIN CYST, PELVIC PAIN [id number] 10/12/2015 08:30:00 10/12/2015 08:30:00 CAN Preadmit FENECH DO, MADISON S [facility] PREOP [id number] 10/06/2015 08:09:00 10/06/2015 23:59:59 CLS Outpatient KARLEY ISSA A DISTANCE LEARNING COORDINATOR [facility] RAD LUMBAGO [id number] 10/03/2015 09:55:00 10/03/2015 23:59:59 CLS Outpatient MADLSCOUT L DISTANCE LEARNING COORDINATOR [facility] RAD PELVIC PAIN IN FEMALE [id number] 10/21/2014 10:37:00 10/21/2014 23:59:59 CLS Outpatient MADLLUCILLEA L DISTANCE LEARNING COORDINATOR [facility] CARD CHEST PAIN [id number] 11/05/2018 11:30:00 PEN Preadmit MADISON GARCIA DO [facility] SDC CHRONIC PELVIC PAIN;IUD IN PLACE [id number] 04/15/2018 00:58:00 Document Registration [id number] 04/15/2018 00:58:00 Document Registration [id number] 11/18/2014 08:47:00 Document Registration [id number] 10/05/2009 12:00:00 Document Registration [id number] 01/03/2009 05:55:00 Document Registration [id number] 12/29/2008 09:55:00 Document Registration [id number] 04/27/2006 16:31:00 Document Registration [id number] 02/27/2006 17:07:00 Document Registration [id number] 10/29/2014 09:18:02 ACT Document Registration
--- NOTE | 2018-11-05 09:38 | Progress Note-Pre Operative ---
Pre-Operative Progress Note H&P Reviewed The H&P was reviewed, patient examined and no changes noted. Date Seen by Provider: Nov 05, 2018 Time Seen by Provider: 09:35 Date H&P Reviewed: Nov 05, 2018 Time H&P Reviewed: 09:35 Pre-Operative Diagnosis: CPP, IUD Removal MADISON GARCIA DO Nov 05, 2018 09:38
[2018-11-05] MEDS ORDERED: LACTATED RINGERS 1,000 ML IV PRN (09:39)
[2018-11-05] MEDS ORDERED: D5 LR IV SOLUTION 1,000 ML IV SCH (09:39)
[2018-11-05 09:40] VITALS: BP 122/75
--- NOTE | 2018-11-05 09:43 | Discharge Inst-Women's Service ---
Discharge Inst-Women's Serv Depart Medication/Instructions New, Converted or Re-Newed RX: RX on Chart Consults/Follow Up Additional Follow Up: Yes Orders/Referrals Dr. Roblero in 2-3 weeks Activity Activity: Activity as Tolerated Driving Instructions: You May Drive (do not drive while taking hydrocodone) NO SMOKING: NO SMOKING Nothing Inside Vagina: No Douching, No Deep Water, No Tampons Diet Discharge Diet: No Restrictions Symptoms to Report to : Bleeding Excessive, Pain Increased, Fever Over 101 Degrees F, Vaginal Bleeding Increase, Questions/Concerns For Any Problems or Questions: Contact Your Physician Skin/Wound Care Infection Signs and Symptoms: Increased Redness, Foul Odor of Wound, Increased Drainage, Skin Itchy or Has a Rash, Increased Swelling, Temperature Above 101 F Operative Area Clean and Dry: Keep Incision Clean/Dry Stitches/Samantha/Dermabond: Dermabond, Care of Stitches Bathing Instructions: MADISON Main DO Nov 05, 2018 09:43
[2018-11-05] MEDS ORDERED: IBUP-1773 PO (09:44)
[2018-11-05] MEDS ORDERED: ACHD5005 PO (09:44)
[2018-11-05] MEDS ORDERED: HYDROcodone/APAP 5 MG/325 MG (LORTAB) TAB PO PRN (09:45)
[2018-11-05] MEDS ORDERED: ceFAZolin INJECTION 1,000 MG in NS (IVPB) 50 ML IV ONE (09:45)
[2018-11-05] MEDS ORDERED: ONDANSETRON 4 MG/2 ML (SDV) Z0FRAN IVP PRN ×2 (09:45→12:15)
[2018-11-05] MEDS ORDERED: KETOROLAC 30 MG/ML VIAL IVP ONE (09:45)
[2018-11-05] MEDS ORDERED: ceFAZolin 1,000 MG/SWFI 10 ML IV PUSH IV ONE ×2 (10:00)
[2018-11-05] MEDS ORDERED: BUPIVACAINE 0.25% 30 ML (SENSORCAINE) VIAL ONE (10:01)
[2018-11-05 10:09] LABS: BASOPHILS % (AUTO) 0 % (0-10); EOSINOPHILS # (AUTO) 0.1 10^3/uL (0.0-0.3); EOSINOPHILS % (AUTO) 1 % (0-10); HEMATOCRIT 42 % (35-52); LYMPHOCYTES # (AUTO) 1.9 X 10^3 (1.0-4.0); LYMPHOCYTES % (AUTO) 31 % (12-44); MEAN CORPUSCULAR HEMOGLOBIN 29 PG (25-34); MEAN CORPUSCULAR HGB CONC 34 G/DL (32-36); MEAN CORPUSCULAR VOLUME 85 FL (80-99); MEAN PLATELET VOLUME 10.1 FL (7.4-10.4); MONOCYTES # (AUTO) 0.3 X 10^3 (0.0-1.0); MONOCYTES % (AUTO) 5 % (0-12); NEUTROPHILS # (AUTO) 3.8 X 10^3 (1.8-7.8); NEUTROPHILS % (AUTO) 62 % (42-75); PLATELET COUNT 286 10^3/uL (130-400); RED CELL DISTRIBUTION WIDTH 13.5 % (10.0-14.5); WHITE BLOOD COUNT 6.2 10^3/uL (4.3-11.0)
[2018-11-05] MEDS ORDERED: fentaNYL INJECTION 100 MCG/2 ML AMP ONE ×2 (10:47→11:43)
[2018-11-05] MEDS ORDERED: MIDAZOLAM 2 MG/2 ML (VERSED) VIAL ONE (10:48)
[2018-11-05] MEDS ORDERED: ONDANSETRON 4 MG/2 ML (SDV) Z0FRAN ONE (11:07)
[2018-11-05] MEDS ORDERED: DEXAMETHASONE 10 MG/ML (DECADRON) 1 ML VIAL ONE (11:07)
[2018-11-05] MEDS ORDERED: SEVOFLURANE (ULTANE) 15 ML INHAL SOLN ONE ×3 (11:07→12:01)
[2018-11-05] MEDS ORDERED: ROCURONIUM 10 MG/ML 5 ML SYRINGE IV ONE (11:08)
[2018-11-05] MEDS ORDERED: proPOfol 200 MG/20 ML (DIPRIVAN) VIAL IV ONE (11:08)
[2018-11-05] MEDS ORDERED: LIDOCAINE PF 2% 5 ML (XYLOCAINE) VIAL ONE (11:08)
[2018-11-05] MEDS ORDERED: GLYCOPYRROLATE 0.2 MG/ML (ROBINUL) 2 ML VIAL ONE ×2 (11:19→11:43)
[2018-11-05] MEDS ORDERED: NEOSTIGMINE 1 MG/ML 5 ML SYRINGE ONE (11:19)
[2018-11-05] MEDS ORDERED: KETOROLAC 30 MG/ML VIAL ONE (11:46)
[2018-11-05] MEDS ORDERED: MEPERIDINE (DEMEROL) INJ 50 MG/ML IVP ONE (12:15)
[2018-11-05] MEDS ORDERED: morphine INJ 10 MG/ML 1ML (SYR OR VIAL) IVP ONE (12:15)
[2018-11-05] MEDS ORDERED: morphine INJ 10 MG/ML 1ML (SYR OR VIAL) ONE (12:17)
[2018-11-05 12:55] VITALS: BP 106/49
[2018-11-05 13:00] VITALS: BP 106/49
[2018-11-05 13:25] VITALS: BP 107/63
--- NOTE | 2018-11-05 13:51 | Anesthesia-General Post-Op ---
General Patient Condition Mental Status/LOC: Same as Preop Cardiovascular: Satisfactory Nausea/Vomiting: Absent Respiratory: Satisfactory Pain: Controlled Complications: Absent Post Op Complications Complications None Follow Up Care/Instructions Patient Instructions None needed. Anesthesia/Patient Condition Patient Condition Patient is doing well, no complaints, stable vital signs, no apparent adverse anesthesia problems. No complications reported per nursing. RILEY MEZA CRNA Nov 05, 2018 13:51
[2018-11-05 13:55] VITALS: BP 114/71
--- NOTE | 2018-11-05 15:41 | OPERATIVE REPORT ---
DATE OF SERVICE: 11/05/2018 PREOPERATIVE DIAGNOSES: 1. A 33-year-old female with chronic pelvic pain that is recurrent. 2. Intrauterine device in place. POSTOPERATIVE DIAGNOSES: 1. A 33-year-old female with chronic pelvic pain that is recurrent. 2. Intrauterine device in place. PROCEDURES PERFORMED: Laparoscopic lysis of adhesions and left ovarian cystectomy as well as removal of Mirena IUD. SURGEON: Madison Garcia DO. ANESTHESIA: General endotracheal. ESTIMATED BLOOD LOSS: Minimal. URINE OUTPUT: 50 mL, clear at the end of the procedure. FLUIDS: 1200 mL lactated Ringer's solution. FINDINGS: Solid left ovarian cystic structure that had a cystic component to it as well. Grossly normal appearing bilateral fallopian tubes. Absence of the right ovary. Adhesions of the sigmoid colon to the left pelvic sidewall covering the infundibulopelvic ligament. SPECIMENS SENT: Left ovarian cystic mass. INDICATIONS: This is a 33-year-old female. The patient had been seen in my office for several years now. In the past 6 to 12 months, she has had significantly worsening increasing pelvic pain that comes and goes. It has become more frequent and more constant recently. We had had the patient on a Mirena IUD to help with her bleeding concerns and heavy bleeding and has been doing a good job of controlling her bleeding; however, she feels that this pain might be due to her ovary and she is wanting more definitive measures taken. We offered proceeding with oral contraceptive suppression; however, she does not do well with pills. Repetitive imaging of the pelvis did not show any gross abnormality; however, we have never ruled her out for endometriosis and I decided to proceed with diagnostic laparoscopy as well as removal of her IUD as it is due to come out in December anyway. Risks of the procedure were discussed with the patient in detail including risks of bleeding, infection, damage to surrounding structures including but not limited to bowel, bladder, ureter, kidneys, possible need for reoperation, recovery time frame as well as postoperative restrictions were discussed with the patient. After all of her questions were answered, consent was obtained. The patient was taken to the operating room. OPERATIVE REPORT IN DETAIL: Once in the operating room, general anesthesia was found to be adequate. She was placed in dorsal lithotomy position, prepped and draped in normal sterile fashion. Montejo catheter was placed in sterile technique. After a timeout was performed, a weighted speculum was inserted in the patient's vagina. A right angle retractor was used to visualize the cervix, which was grasped at 12 o'clock position using a long Allis clamp and then proceeded with sounding the uterine cavity and depth was found to be 8 cm. I then placed an 8 cm depth Kronner uterine manipulator. Once this was in place, I deployed the balloon and removed all the instruments from the patient's vagina. I am able to appreciate excellent bimanual manipulation with the Kronner uterine manipulator. I then performed change of gloves and took my attention to the abdomen where infraumbilically I infiltrated this area using 0.25% Marcaine to make a 5 mm incision and directed through the incision, a Veress needle until intraperitoneal placement was confirmed using saline drop test. I then proceeded with insufflated using CO2 gas with an opening pressure of 3 mmHg. I then proceeded to a max pressure of 15 mmHg, at which point I removed the Veress needle and introduced a 5 mm blunt trocar. Once this was in place, I am able to confirm its correct placement using the laparoscope. A brief scan of the upper abdominal anatomy appears to be grossly normal and there was no evidence of damage from the entry site. I then had the patient placed in steep Trendelenburg and I am able to visualize all of my findings as described above. I decided that I need two separate trocars in order to perform the dissection necessary to treat my findings, so I placed a suprapubic 5 mm trocar in similar fashion as well as a left lower quadrant trocar as well infiltrating the skin using 0.25% Marcaine, making a 5 mm incision directing the trocar through the abdominal wall under direct visualization of the laparoscope. Once these were in place, I first using monopolar EndoShears dissected off the left ovary of this solid cystic structure. Once it was removed, it was removed through the trocar sites in three to four separate specimen pieces. I then took my attention to the adhesions of the sigmoid down to the left pelvic sidewall which were taken down using the EndoShears as well with some sharp and some blunt dissection. Once this was taken down, there was no active bleeding noted from any of my dissection planes. I then extensively inspected all the pelvic peritoneal anatomy which does not appear to have any endometriosis implants or any other pathology or concerns, at which point I deemed the procedure complete and the patient was taken out of steep Trendelenburg after copiously irrigating the pelvis using normal saline. I then removed the lower trocars, both suprapubic and left lower quadrant under direct visualization of the laparoscope. The infraumbilical trocar was left in place to release insufflation and to introduce 10 mL of 0.25% Marcaine into the peritoneal cavity for postoperative pain management. I then removed the trocar as well. The skin was reapproximated using Skin Affix, bandage were placed over the incisions. A Kronner uterine manipulator was removed. Montejo catheter was removed. The patient tolerated the procedure well and was sent to recovery in stable condition. Lap and sponge counts correct at the end of the procedure. Instrument count was correct as well. Job ID: [id number] DocumentID: [id number] Dictated Date: 11/05/2018 12:02:57 Assistant Customer Service Manager Date: 11/05/2018 15:40:42 Dictated By: MADISON GARCIA DO
--- NOTE | 2018-11-11 13:19 | Operative Report ---
Operative Report Date of Procedure/Surgery Nov 05, 2018 Surgeon (s) MADISON GARCIA DO Insurance Claims Supervisor (s): none Post-Operative Diagnosis addendum to dictated report Procedure Performed Removal of Mirena IUD Description of Procedure Estimated blood loss (mL): none Specimen(s) collected/removed IUD Description of the Procedure Addendum to dictated report. The IUD strings were visualized prior to placement of chroaner uterine manipulator. They are grasped with a long ring forcep and removed without difficulty Findings of the Procedure see dictated operative report Allergies and Home Medications Allergies Coded Allergies: No Known Drug Allergies (Unverified , 10/30/16) Home Medications Duloxetine HCl 30 Mg Capsule.dr, 30 MG PO DAILY, (Reported) Duloxetine HCl 60 Mg Capsule.dr, 60 MG PO DAILY, (Reported) Hydrocodone Bit/Acetaminophen 1 Tab Tab, 1 TAB PO Q4H PRN for PAIN-MODERATE Prescribed by: MADISON GARCIA on 11/05/18 0944 Ibuprofen 600 Mg Tablet, 600 MG PO Q6H Prescribed by: MADISON GARCIA on 11/05/18 0944 Levothyroxine Sodium 75 Mcg Tablet, 75 MCG PO DAILY, (Reported) Patient Home Medication List Home Medication List Reviewed: MADISON Roche DO Nov 11, 2018 13:19
== END 2018-11-05 14:40 | disposition home or self-care (01) ==
LOC: SDC 09:10
PROVIDERS: ATTEND Obstetrics & Gynecology
DX: N83.12 Corpus luteum cyst of left ovary (principal); I08.1 Rheumatic disorders of both mitral and tricuspid valves; E66.01 Morbid (severe) obesity due to excess calories; Z68.43 Body mass index [BMI] 50.0-59.9, adult; Z97.5 Presence of (intrauterine) contraceptive device; Z79.899 Other long term (current) drug therapy
CPT/HCPCS: 36415; 82306; 84703; 85025; 86850; 86900; 86901; 87081; 88305

== ENCOUNTER 2019-06-10 10:32 | Outpatient (CLI) | payer BC ==
[~2019-06-10] VITALS: Ht 165.1 cm; Wt 157.6 kg
[2019-06-10 10:42] VITALS: BP 140/89
[2019-06-10] MEDS ORDERED: GABA-486 PO (10:46)
[2019-06-10] MEDS ORDERED: LEVO1TAB20 PO (10:46)
[2019-06-10 11:12] LABS: BASOPHILS % (AUTO) 0 % (0-10); EOSINOPHILS # (AUTO) 0.2 10^3/uL (0.0-0.3); EOSINOPHILS % (AUTO) 3 % (0-10); HEMATOCRIT 42 % (35-52); HEMOGLOBIN 13.9 G/DL (11.5-16.0); LYMPHOCYTES # (AUTO) 1.8 X 10^3 (1.0-4.0); LYMPHOCYTES % (AUTO) 26 % (12-44); MEAN CORPUSCULAR HEMOGLOBIN 28 PG (25-34); MEAN CORPUSCULAR HGB CONC 33 G/DL (32-36); MEAN CORPUSCULAR VOLUME 86 FL (80-99); MEAN PLATELET VOLUME 10.2 FL (7.4-10.4); MONOCYTES # (AUTO) 0.4 X 10^3 (0.0-1.0); MONOCYTES % (AUTO) 6 % (0-12); NEUTROPHILS # (AUTO) 4.5 X 10^3 (1.8-7.8); NEUTROPHILS % (AUTO) 65 % (42-75); PLATELET COUNT 261 10^3/uL (130-400); RED CELL DISTRIBUTION WIDTH 13.1 % (10.0-14.5); WHITE BLOOD COUNT 6.9 10^3/uL (4.3-11.0)
== END 2019-06-10 11:00 | disposition home or self-care (01) ==
LOC: PREOP 10:32
PROVIDERS: ATTEND Obstetrics & Gynecology
DX: Z01.818 Encounter for other preprocedural examination (principal); N93.9 Abnormal uterine and vaginal bleeding, unspecified; N94.6 Dysmenorrhea, unspecified; E22.8 Other hyperfunction of pituitary gland
CPT/HCPCS: 36415; 85025; 86850; 86900; 86901; 87081

== ENCOUNTER 2019-06-21 08:15 | Day surgery (SDC) | payer BC ==
[~2019-06-21] VITALS: Ht 165.1 cm; Wt 157.6 kg
[2019-06-21] VITALS (10 sets, daily range): BP systolic 122–174; BP diastolic 60–98
[~2019-06-21 08:15] MED LIST changes: +GABA-486 PO; +LEVO1TAB20 PO
[2019-06-21] MEDS: LACTATED RINGERS 1,000 ML IV PRN ×2 (08:45→09:27)
[2019-06-21] MEDS ORDERED: metroNIDAZOLE 500MG/100ML IVPB 100 ML ONE (08:54)
[2019-06-21] MEDS ORDERED: ceFAZolin 2 GM/50 ML NS 50 ML ONE (08:55)
--- NOTE | 2019-06-21 08:56 | Progress Note-Pre Operative ---
Pre-Operative Progress Note H&P Reviewed The H&P was reviewed, patient examined and no changes noted. Date Seen by Provider: Jun 21, 2019 Time Seen by Provider: 08:45 Date H&P Reviewed: Jun 21, 2019 Time H&P Reviewed: 08:45 Pre-Operative Diagnosis: DUB, BMI > 40 MADISON GARCIA DO Jun 21, 2019 08:56
[2019-06-21] MEDS ORDERED: metroNIDAZOLE 500MG/100ML IVPB 100 ML IV ONE (09:00)
[2019-06-21] MEDS ORDERED: ceFAZolin 2 GM/50 ML NS 50 ML IV ONE (09:00)
[2019-06-21] MEDS ORDERED: LACTATED RINGERS 1,000 ML IV ONE (09:00)
[2019-06-21] MEDS ORDERED: proPOfol 200 MG/20 ML (DIPRIVAN) VIAL IV ONE (09:01)
[2019-06-21] MEDS ORDERED: ONDANSETRON 4 MG/2 ML (SDV) Z0FRAN ONE ×2 (09:01→09:14)
[2019-06-21] MEDS ORDERED: ROCURONIUM 10 MG/ML 5 ML SYRINGE IV ONE (09:01)
[2019-06-21] MEDS ORDERED: LIDOCAINE PF 2% 5 ML (XYLOCAINE) VIAL ONE (09:01)
[2019-06-21] MEDS ORDERED: MIDAZOLAM 2 MG/2 ML (VERSED) VIAL ONE ×2 (09:02→09:14)
[2019-06-21] MEDS ORDERED: fentaNYL INJECTION 100 MCG/2 ML AMP ONE (09:02)
[2019-06-21] MEDS ORDERED: DESFLURANE (SUPRANE) 15 ML INHAL SOLN ONE ×7 (09:03→11:26)
[2019-06-21] MEDS ORDERED: KETOROLAC 30 MG/ML VIAL ONE (09:03)
[2019-06-21] MEDS ORDERED: BUPIVACAINE 0.25% 30 ML (SENSORCAINE) VIAL ONE ×2 (09:11→09:22)
[2019-06-21] MEDS ORDERED: LACTATED RINGERS 1,000 ML IV SCH (09:13)
[2019-06-21] MEDS ORDERED: FAMOTIDINE 20MG/2ML IV (PEPCID) ONE (09:14)
[2019-06-21] MEDS ORDERED: CHLORASEPTIC LOZENGE MM PRN (09:15)
[2019-06-21] MEDS ORDERED: SIMETHICONE 80 MG (MYLICON) CHEW PO PRN (09:15)
[2019-06-21] MEDS ORDERED: HYDROcodone/APAP 7.5 MG/325 MG (LORTAB, LORCET PLUS) TABLET PO PRN (09:15)
[2019-06-21] MEDS ORDERED: ONDANSETRON 4 MG/2 ML (SDV) Z0FRAN IV PRN (09:15)
[2019-06-21] MEDS ORDERED: ZOLPIDEM 5 MG (AMBIEN) TAB PO PRN (09:15)
[2019-06-21] MEDS ORDERED: ANTACID SUSP 30 ML UDC (MYLANTA) PO PRN (09:15)
[2019-06-21] MEDS ORDERED: FAMOTIDINE 20MG/2ML IV (PEPCID) IV ONE (09:15)
[2019-06-21] MEDS ORDERED: DOCUSATE SODIUM 100 MG (COLACE) CAP PO PRN (09:15)
[2019-06-21] MEDS ORDERED: MIDAZOLAM 2 MG/2 ML (VERSED) VIAL IV ONE (09:15)
[2019-06-21] MEDS ORDERED: ONDANSETRON 4 MG/2 ML (SDV) Z0FRAN IV ONE (09:15)
--- NOTE | 2019-06-21 09:18 | Discharge Inst-Women's Service ---
Discharge Inst-Women's Serv Depart Medication/Instructions New, Converted or Re-Newed RX: RX on Chart Consults/Follow Up Additional Follow Up: Yes Activity Activity: Activity as Tolerated Driving Instructions: No Driving for 1 Week NO SMOKING: NO SMOKING Nothing Inside Vagina: No Douching, No Mcdowell, No Tampons Diet Discharge Diet: No Restrictions Symptoms to Report to : Pain Increased, Fever Over 101 Degrees F, Vaginal Bleeding Increase For Any Problems or Questions: Contact Your Physician Skin/Wound Care Infection Signs and Symptoms: Increased Redness, Foul Odor of Wound, Increased Drainage, Skin Itchy or Has a Rash, Increased Swelling, Temperature Above 101 F Operative Area Clean and Dry: Keep Incision Clean/Dry Stitches/Samantha/Dermabond: Dermabond Bathing Instructions: NIR Pelletier APRN Jun 21, 2019 09:18
[2019-06-21] MEDS ORDERED: SIME80TA16 PO (09:21)
[2019-06-21] MEDS ORDERED: HYDR-34 PO (09:21)
[2019-06-21] MEDS ORDERED: DOCU100C37 PO (09:21)
[2019-06-21] MEDS ORDERED: IBUP-844 PO (09:21)
[2019-06-21] MEDS: KETOROLAC 30 MG/ML VIAL IV PRN ×2 (11:35→15:03)
--- NOTE | 2019-06-21 12:05 | Anesthesia-General Post-Op ---
General Patient Condition Mental Status/LOC: Same as Preop Cardiovascular: Satisfactory Nausea/Vomiting: Absent Respiratory: Satisfactory Pain: Controlled Complications: Absent Post Op Complications Complications None Follow Up Care/Instructions Patient Instructions None needed. Anesthesia/Patient Condition Patient Condition Patient is doing well, no complaints, stable vital signs, no apparent adverse anesthesia problems. No complications reported per nursing. ALEKS MENG CRNA Jun 21, 2019 12:05
[2019-06-21] MEDS ORDERED: morphine INJ 10 MG/ML 1ML (SYR OR VIAL) ONE (12:16)
[2019-06-21] MEDS ORDERED: morphine INJ 10 MG/ML 1ML (SYR OR VIAL) IVP ONE (12:30)
[2019-06-21] MEDS ORDERED: MEPERIDINE (DEMEROL) INJ 50 MG/ML IVP ONE (12:30)
[2019-06-21] MEDS ORDERED: HYDROmorphone 2 MG/ML VIAL (DILAUDID) IV ONE (12:30)
[2019-06-21] MEDS ORDERED: ONDANSETRON 4 MG/2 ML (SDV) Z0FRAN IVP PRN (12:30)
--- NOTE | 2019-06-21 12:50 | NUR ---
REPORT FROM FAVIAN LUNSFORD.
--- NOTE | 2019-06-21 12:55 | NUR ---
ELAINA UMA admitted to room 3305-1, with an admitting diagnosis of ROBOTIC HYSTERECTOMY, on 06/21/19 from RECOVERY ROOM via , accompanied by .ELAINA EATON introduced to surroundings, call light, bed controls, phone, TV, temperature control, lights, meal times, smoking policy, visitor policy, side rail policy, bathrooms and showers. Patient Rights given to patient in the handbook.ELAINA EATON verbalizes understanding that [facility] is not responsible for the loss or damage to any personal effects or valuables that are kept in the patients posession during their hospitalization. The following Patient Care Plans were discussed with the : Discharge Planning, ,, and . ELAINA EATON verbalizes understanding of Interdisciplinary Patient Education. Patient and/or family were informed about the Rapid Response Team and its purpose.
--- NOTE | 2019-06-21 13:00 | NUR ---
INITIAL ASSESSMENT COMPLETED AT BEDSIDE, VSS, SEE INTERVENTIONS FOR DETAILED ASSESSMENTS, PLAN OF CARE EXPLAINED TO PT/SO, QUESTIONS ANSWERED, PT VERBALIZES UNDERSTANDING. WILL MONITOR CLOSELY.
[2019-06-21] MEDS ORDERED: HYDROcodone/APAP 7.5 MG/325 MG (LORTAB, LORCET PLUS) TABLET PO ONE (13:09)
--- NOTE | 2019-06-21 13:15 | NUR ---
PT C/O PAIN, LORTAB 2 TABLETS GIVEN PO FOR PAIN, FAMILY AT SIDE, WILL MONITOR CLOSELY.
--- NOTE | 2019-06-21 14:10 | NUR ---
PT C/O PRESSURE FROM CATHETER, REQUESTING D/C, BUENROSTRO REPOSITIONED BY RN, DRAINAGE CL YELLOW URINE WELL. WILL NOTIFY
--- NOTE | 2019-06-21 14:35 | NUR ---
DR GARCIA CALLED, NEW ORDERS RECEIVED.
--- NOTE | 2019-06-21 14:50 | NUR ---
SOLITARIO MACKEY HERE TO SEE PT, NEW ORDERS RECEIVED.
--- NOTE | 2019-06-21 15:05 | NUR ---
BUENROSTRO CATHETER REMOVED, PT TOLERATED WELL, AMBULATED TO BR WITH RN ASSIST, TOLERATED WELL, PERICARE, WILL MONITOR CLOSELY.
--- NOTE | 2019-06-21 15:15 | NUR ---
PT VOIDED 50ML, AMBULATED BACK TO BED, RT AT BEDSIDE.
--- NOTE | 2019-06-21 15:54 | NUR ---
PT AMBULATED TO BR, VOIDED WITHOUT DIFFICULTY. IV REMOVED.
--- NOTE | 2019-06-21 16:16 | NUR ---
D/C INSTRUCTIONS EXPLAINED TO PT AND S/O, QUESTIONS ANSWERED, PT VERBALIZES UNDERSTANDING OF PLAN OF CARE FOR DISCHARGE. INFORMATION SIGNED.
--- NOTE | 2019-06-21 16:40 | NUR ---
PT D/C TO HOME, TAKEN BY WC TO PRIVATE CAR BY RASHEEDA LUNSFORD WITH S/O AT SIDE, PT VERBALIZES UNDERSTANDING OF D/C INSTRUCTIONS AND FOLLOW UP CARE NO DISTRESS NOTED.
--- NOTE | 2019-06-21 20:48 | OPERATIVE REPORT ---
DATE OF SERVICE: 06/21/2019 PREOPERATIVE DIAGNOSIS: Abnormal uterine bleeding with BMI greater than 50. POSTOPERATIVE DIAGNOSIS: Abnormal uterine bleeding with BMI greater than 50. PROCEDURE: Robotic-assisted total laparoscopic hysterectomy with bilateral salpingectomy. SURGEON: Henry Garcia DO MINISTER OF RELIGION: Elaina Jon DNP, who was necessary for uterine manipulation throughout the procedure as well as retraction and manipulation of vital neurovascular structures. ANESTHESIA: General endotracheal. ESTIMATED BLOOD LOSS: 30 mL. URINE OUTPUT: 300 mL clear at the end of the procedure. FLUIDS: 800 mL lactated Ringer's solution. FINDINGS: Hyperemic appearing uterus with grossly normal appearing serosal surface. Grossly normal appearing bilateral fallopian tubes and a normal appearing left ovary, absent right ovary. SPECIMEN SENT: Bilateral fallopian tubes and uterus. INDICATIONS FOR PROCEDURE: This patient is long established in my office. I had been seeing him for approximately 5 years and has been dealing with abnormal uterine bleeding throughout this time. She has a history of PCOS and has underwent multiple attempts of trying to slow down her bleeding. All conservative measures have basically been exhausted, short of hysterectomy. The patient saw me in the office on an acute episode of bleeding and was becoming very frustrated with the amount of bleeding she is having despite any kind of benefit and management. We discussed proceeding with hysterectomy as the patient was requesting to have that done. Risk of bleeding, infection, damage to surrounding structures including, but not limited to bowel, bladder, ureter, kidneys, possible postoperative recovery timeframe, postoperative complications, possible need for reoperation, risk from anesthesia and even were all discussed with the patient. All of her questions were answered and she was still agreeable to proceed. So, we scheduled at her next earliest convenience and consent was obtained in the preoperative area. OPERATIVE REPORT IN DETAIL: Once in the operating room, anesthesia was found to be adequate. She was placed in dorsal lithotomy position, prepped and draped in normal sterile fashion. Timeout was performed. A Montejo catheter was placed using sterile technique. A weighted speculum was inserted to the patient's vagina. A right angle retractor was used to visualize the cervix, which was grasped at 12 o'clock position using a long Allis clamp and 0 Vicryl suture was then placed in the anterior lip of the cervix and the Allis was then removed. Uterine cavity depth was then sounded and found to be approximately 8 cm and I then gently dilated the cervix using Kristina dilators to allow placement of the Gloria uterine manipulator, an 8 cm Gloria uterine manipulator tip and a 3.5 cm colpotomy ring was advanced into the uterus and the colpotomy ring was advanced around the vaginal fornix and excellent bimanual manipulation is noted after doing this. I then removed all the other instruments from the patient's vagina, performed a change of gloves, took my attention to the abdomen where infraumbilically, I infiltrated this area using 0.25% Marcaine and made an 8 mm incision with a knife and directed Veress needle through the incision; however, I am unable to perforate all the way through the abdominal wall due to the patient's body habitus. I then went in the left upper quadrant and made a puncture wound at the mid costal line using the Veress needle until intraperitoneal placement was confirmed using saline drop test. I then proceeded with insufflation using CO2 gas with an opening pressure of 3 mmHg was noted. I proceeded to maximum pressure of 15 mmHg, at which point, I left the Veress needle in place, but through the infraumbilical trocar site, I placed a da Aura camera trocar. The da Aura laparoscope was then used to confirm intraperitoneal placement and no damage upon entry. I am also able to identify the Veress needle in the left upper quadrant, which was then removed without evidence of further damage to surrounding structures. I then had the patient placed in steep Trendelenburg and made to visualize all the pelvic anatomy findings as described in my findings above. I placed two lateral trocars, these were approximately 10 cm lateral to my infraumbilical trocar. The skin was infiltrated using 0.25% Marcaine. An 8 mm incisions were made with a knife and the trocars were placed under direct visualization of the laparoscope. Once these trocars were in place, I brought in the da Aura robot and docked in the appropriate fashion, I placed the vessel sealer in the left hand and monopolar christian in the right hand. On the right side, there was no ovary; therefore, I amputated the fallopian tube at its distal lateral connection of the mesosalpinx using the vessel sealer by bipolar cauterized and transecting. I then grasped the round ligament, bipolar cauterized and transected using vessel sealer. I took the entire broad ligament at that point and bipolar cauterized and transected using the vessel sealer down to the level of the lower uterine segment, at which point, I the anterior and posterior leaflets of the broad ligament. Anterior dissection was taken around to the anterior vaginal fornix. The posterior was taken around to the posterior vaginal fornix. This allows me to skeletonize the uterine vessels laterally and bipolar cauterized and transected them using the vessel sealer. I am able to visualize the ureter on the entire dissection and it stays clear of my dissection planes. On the left side, I grasped the uteroovarian ligament, bipolar cauterized and transected this using the vessel sealer. I created a window in the mesosalpinx and took this laterally using monopolar christian amputating the fallopian tube from the mesosalpinx. We then grasped the round ligament, bipolar cauterized and transected this using the vessel sealer. I then grasped the entire broad ligament, bipolar cauterized and transected this using the vessel sealer. I then the anterior and posterior leaflets of the broad ligament. The anterior leaflet dissection was taken around the anterior vaginal fornix. Posterior leaflet dissection was taken around the posterior vaginal fornix. This allows me to skeletonize the uterine vessels, which I then bipolar cauterized and transected this using the vessel sealer. I then created a window at 12 o'clock position on the vagina and performed a colpotomy using the monopolar christian and took this circumferentially around the vaginal fornix, amputating the cervix away from the vagina. The entire specimen was then removed through the vagina. I then proceeded with closing the lateral vaginal apices of the vaginal cuff using 2-0 Vicryl suture in a [id number] fashion colposuspending up the uterosacral ligaments. After which, I also closed the middle portion of the vaginal cuff using 2-0 V-Loc in a running fashion, after which there was no active bleeding noted from any of my dissection planes. I then undocked the da Aura robot and proceeded with the remainder of the case laparoscopically. After I scrubbed back into the case, I copiously irrigated the pelvis using normal saline. Once again, there was no active bleeding noted from any of my dissection planes. I placed FloSeal hemostatic agent over all my planes of dissection to ensure excellent postoperative hemostasis. I then had the patient taken out of steep Trendelenburg where I removed the lateral trocars under direct visualization of laparoscope. The infraumbilical trocar was left in place to release insufflation and to introduce 10 mL of 0.25% Marcaine into the peritoneal cavity for postoperative pain management. I then removed this trocar as well. The skin was reapproximated using 4-0 Monocryl in interrupted subcuticular stitches. Dermabond was applied to incision and Band-Aids were placed over these. Montejo catheter was left in place. Two grams of Ancef and 500 mg of Flagyl were given preoperatively for infection prophylaxis. Lap and sponge counts were correct at the end of the procedure. Instrument counts were correct as well. Job ID: [id number] DocumentID: [id number] Dictated Date: 06/21/2019 12:10:33 [facility] Date: 06/21/2019 20:47:28 Dictated By: HENRY GARCIA DO
[2019-06-22] MEDS ORDERED: IBUPROFEN 600 MG (MOTRIN) TAB PO PRN (02:00)
== END 2019-06-21 16:40 | disposition home or self-care (01) ==
LOC: SDC 08:15 → WS 13:19 → SDC 16:40
PROVIDERS: ATTEND Obstetrics & Gynecology
DX: N93.9 Abnormal uterine and vaginal bleeding, unspecified (principal); N94.6 Dysmenorrhea, unspecified; E30.1 Precocious puberty
CPT/HCPCS: 36415; 84703; 86850; 86900; 86901; 94664

== ENCOUNTER → 2020-12-26 | Outpatient (CLI) | payer BC ==
[~2020-12-26] MED LIST changes: +CATHETER FLUSH 10 ML SYR IV PRN; +DOCU100C37 PO; +HOLD METFORMIN - RECEIVED CONTRAST 20 ML VIAL IV SCH; +HYDR-34 PO; +IBUP-844 PO; +IOHEXOL 350 MG/ML 100 ML (OMNIPAQUE 350) VIAL IV ONE; +NS 100 ML (IVPB) BAG IV ONE; +SIME80TA16 PO
--- NOTE | 2020-12-26 10:19 | Diagnostic Imaging Report ---
EXAMINATION: CT head with and without contrast and CT neck with contrast. TECHNIQUE: Multiple contiguous axial images were obtained through the brain without the use of intravenous contrast. Contrast enhanced images were then obtained of the head and neck. Sagittal and coronal reformations through the cervical spine were then performed. All CT scans use one or more of the following dose optimizing techniques: automated exposure control, MA and/or KvP adjustment based on a patient size and exam type, or iterative reconstruction. HISTORY: Cervical lymphadenopathy. Increase in size in the left submandibular region. Headache. COMPARISON: None available. FINDINGS: CT head: No large acute territorial ischemia, mass, or hemorrhage. No abnormal enhancement. No midline shift or mass effect. The ventricles, cortical sulci, and basilar cisterns are patent and unremarkable. The calvarium is intact. The visualized paranasal sinuses are clear. CT neck: Bilateral prominent cervical lymph nodes are visualized. In particular a lymph node in the left level 1B station is seen measuring 1.7 x 0.9 cm, likely representing the patient's history of prominent left submandibular lymph node. This demonstrates prominent normal fatty hilum. No pathologic lymph nodes are seen based on size criteria. The posterior nasopharynx and oropharynx demonstrate appropriate symmetry. There is no displacement of the parapharyngeal fat planes. There is no abnormal process evident within the prevertebral or retropharyngeal space. There is no evidence of abnormal thickening of the epiglottis or aryepiglottic folds. The vocal folds appear symmetric. The parotid, submandibular and thyroid gland are unremarkable. No focal inflammatory changes are demonstrated. No soft tissue mass or fluid collection demonstrated. The vascular structures the neck demonstrate no evidence of high-grade stenosis on this nondedicated exam. The visualized lung apices are clear. No acute osseous abnormality in the cervical spine. IMPRESSION: 1. No hemorrhage or focal intra-axial mass. No CT evidence of large acute territorial ischemia. No abnormal intracranial enhancement. 2. Mildly prominent cervical lymph nodes which do not meet significance based on size criteria. In particular a prominent left submandibular lymph node is seen with normal preserved fatty hilum. These are favored to be reactive. Recommend follow-up if symptoms persist or worsen. 3. No soft tissue mass or inflammation in the neck. Dictated by: Dictated on workstation # [id number]
== END ==
LOC: RAD 08:45
PROVIDERS: ATTEND Nurse Practitioner Family
DX: R59.0 Localized enlarged lymph nodes (principal)
CPT/HCPCS: 70470; 70491

== ENCOUNTER 2022-09-16 08:50 | Day surgery (SDC) | payer BC ==
[2022-09-16] VITALS (7 sets, daily range): BP systolic 133–157; BP diastolic 71–97
[~2022-09-16] VITALS: Ht 165 cm; Wt 163.0 kg
[~2022-09-16 08:50] MED LIST changes: -CATHETER FLUSH 10 ML SYR IV PRN; +DOXY-444 PO; -DOXY100C42 PO; -DULO60CA6 PO; +DULO60CA7 PO; -HOLD METFORMIN - RECEIVED CONTRAST 20 ML VIAL IV SCH; -IOHEXOL 350 MG/ML 100 ML (OMNIPAQUE 350) VIAL IV ONE; -NS 100 ML (IVPB) BAG IV ONE
[2022-09-16] MEDS ORDERED: ONDANSETRON 4 MG (ZOFRAN) ORAL DISSOLVE TAB PO STA (09:04)
--- NOTE | 2022-09-16 09:08 | ED Abdominal Pain ---
General Chief Complaint: Abdominal/GI Problems Stated Complaint: ABD\\OVARIAN PAIN Nursing Triage Note: PT AMB TO RM 6 PT CO OF L SIDED ABD PAIN STARTED LAST PM AND HAS SOME N/V DENIES DIARRHEA. PT HAS HAD HYST IN 2018 AND ONLY HAS L OVARY LEFT Source of Information: Patient Exam Limitations: No Limitations History of Present Illness Date Seen by Provider: Sep 16, 2022 Time Seen by Provider: 09:00 Initial Comments 36-year-old female presents for left lower pelvic, abdominal pain. Symptoms started last night and worsened this morning. She had a single episode of vomiting secondary to pain this morning. No changes in bowel or bladder habits. No dysuria or hematuria. She states she has a history of ovarian cysts and this is similar pain however slightly worse in intensity. She has had a hysterectomy with a right salpingo-oophorectomy but does still have her left tube and ovary. Denies any fevers or chills. No vaginal symptoms. Pain is dull throbbing with episodes of sharp stabbing pain. No radiation. No aggravating or alleviating factors. Moderate intensity. She tried some ibuprofen without much relief. Allergies and Home Medications Allergies Coded Allergies: No Known Drug Allergies (Unverified , 10/30/16) Patient Home Medication List Home Medication List Reviewed: Yes Docusate Sodium (Docusate Sodium) 100 Mg Capsule, 100 MG PO BID PRN for CONSTIPATION-1ST LINE Prescribed by: GEMINI RODRIGUEZ on 09/16/22 1451 Duloxetine HCl (Cymbalta) 30 Mg Capsule.dr, 30 MG PO DAILY, (Reported) Entered as Reported by: SUDEEP ROJO on 11/02/18 1337 Duloxetine HCl (Cymbalta) 60 Mg Capsule.dr, 60 MG PO DAILY, (Reported) Entered as Reported by: SUDEEP ROJO on 11/02/18 1337 Estradiol (Estrace Tablet) 2 Mg Tablet, 2 MG PO DAILY Prescribed by: GEMINI RODRIGUEZ on 09/16/22 1452 Gabapentin (Gabapentin) 100 Mg Capsule, 200 MG PO HS, (Reported) Entered as Reported by: SUDEEP ROJO on 06/10/19 1046 Hydrocodone Bit/Acetaminophen (Lortab 7.5 Mg Tablet) 1 Ea Tablet, 2 EA PO Q6H PRN for Pain-See Instructions Prescribed by: NIR MILLER on 06/21/19920 Ibuprofen (Ibu) 600 Mg Tablet, 600 MG PO Q6H PRN for PAIN-MODERATE Prescribed by: GEMINI RODRIGUEZ on 09/16/22 1451 Oxycodone HCl/Acetaminophen (Percocet 5-325 mg Tablet) 1 Each Tablet, 1 TAB PO Q6H PRN for PAIN-MODERATE (5-7) Prescribed by: GEMINI RODRIGUEZ on 09/16/22 1452 Simethicone (Simethicone) 80 Mg Tab.chew, 40 MG PO TID PRN for INDIGESTION 2ND LINE Prescribed by: NIR MILLER on 06/21/19920 Review of Systems Review of Systems Constitutional: no symptoms reported EENTM: No Symptoms Reported Respiratory: No Symptoms Reported Cardiovascular: No Symptoms Reported Gastrointestinal: Abdominal Pain, Vomiting Genitourinary: No Symptoms Reported Musculoskeletal: no symptoms reported Skin: no symptoms reported Psychiatric/Neurological: No Symptoms Reported Endocrine: No Symptoms Reported Hematologic/Lymphatic: No Symptoms Reported Past Tsmklia-Lqcmsx-Eyaiwc Hx Patient Social History Tobacco Use?: No Substance use?: No Alcohol Use?: No Pt feels they are or have been: No Immunizations Up To Date Tetanus Booster (TDap): Less than 5yrs PED Vaccines UTD: No Seasonal Allergies Seasonal Allergies: No Past Medical History Surgery/Hospitalization HX: HYSTERECTOMY, R SIDE. 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 0.0oz. 151.199182md; 59.00 BMI Method:Stated General Appearance: WD/WN, no apparent distress HEENT: normal ENT inspection, pharynx normal Neck: non-tender, supple, normal inspection Respiratory: chest non-tender, lungs clear, normal breath sounds, no respiratory distress, no accessory muscle use Cardiovascular: regular rate, rhythm, no edema, no gallop, no murmur Gastrointestinal: normal bowel sounds, non tender, soft, no organomegaly Extremities: normal range of motion, non-tender, normal inspection, no calf tenderness, normal capillary refill Back: normal inspection, no CVA tenderness, no vertebral tenderness Neurologic/Psychiatric: alert, normal mood/affect, oriented x 3 Skin: normal color, warm/dry Lymphatic: no adenopathy Progress/Results/Core Measures Results/Orders Lab Results Laboratory Tests Test 09/16/22 09:05 09/16/22 12:53 Range/Units Urine Color YELLOW Urine Clarity CLEAR Urine pH 7.0 5-9 Urine Specific [place] 1.020 1.016-1.022 Urine Protein TRACE H NEGATIVE Urine Glucose (UA) NEGATIVE NEGATIVE Urine Ketones TRACE H NEGATIVE Urine Nitrite NEGATIVE NEGATIVE Urine Bilirubin NEGATIVE NEGATIVE Urine Urobilinogen 1.0 < = 1.0 MG/DL Urine Leukocyte Esterase NEGATIVE NEGATIVE Urine RBC (Auto) NEGATIVE NEGATIVE Urine RBC NONE /HPF Urine WBC NONE /HPF Urine Squamous Epithelial Cells 0-2 /HPF Urine Crystals NONE /LPF Urine Bacteria FEW H /HPF Urine Casts NONE /LPF Urine Mucus NEGATIVE /LPF Urine Culture Indicated NO White Blood Count 11.7 H 4.3-11.0 10^3/uL Red Blood Count 5.36 H 3.80-5.11 10^6/uL Hemoglobin 15.2 11.5-16.0 g/dL Hematocrit 46 35-52 % Mean Corpuscular Volume 86 80-99 fL Mean Corpuscular Hemoglobin 28 25-34 pg Mean Corpuscular Hemoglobin Concent 33 32-36 g/dL Red Cell Distribution Width 13.4 10.0-14.5 % Platelet Count 274 130-400 10^3/uL Mean Platelet Volume 10.1 9.0-12.2 fL Immature Granulocyte % (Auto) 0 % Neutrophils (%) (Auto) 91 H 42-75 % Lymphocytes (%) (Auto) 5 L 12-44 % Monocytes (%) (Auto) 3 0-12 % Eosinophils (%) (Auto) 0 0-10 % Basophils (%) (Auto) 0 0-10 % Neutrophils # (Auto) 10.7 H 1.8-7.8 10^3/uL Lymphocytes # (Auto) 0.6 L 1.0-4.0 10^3/uL Monocytes # (Auto) 0.3 0.0-1.0 10^3/uL Eosinophils # (Auto) 0.0 0.0-0.3 10^3/uL Basophils # (Auto) 0.0 0.0-0.1 10^3/uL Immature Granulocyte # (Auto) 0.0 0.0-0.1 10^3/uL Neutrophils % (Manual) 95 % Lymphocytes % (Manual) 4 % Monocytes % (Manual) 1 % Eosinophils % (Manual) 0 % Basophils % (Manual) 0 % Band Neutrophils 0 % Blood Morphology Comment NORMAL My Orders Orders - JENNIFER DE LUNA DO Ua Culture If Indicated (09/16/22 09:04) Ketorolac Injection (Toradol Injection) (09/16/22 09:15) Hydrocodone/Apap 5/325 Tablet (Lortab 5 (09/16/22 09:15) Ondansetron Oral Dissolve Tab (Zofran (09/16/22 09:04) Ed Iv/Invasive Line Start (09/16/22 10:16) Morphine Injection (Morphine Injection (09/16/22 10:16) Ct Abdomen/Pelvis W (09/16/22 10:17) Iohexol Injection (Omnipaque 350 Mg/Ml 1 (09/16/22 10:30) Received Contrast (Hold Metformin- Contr (09/16/22 10:30) Ns (Ivpb) (Sodium Chloride 0.9% Ivpb Bag (09/16/22 10:30) Hydromorphone Injection (Dilaudid Inject (09/16/22 11:45) Us Non Ob Pelvis Comp/Transvag (09/16/22 11:31) Cbc With Automated Diff (09/16/22 12:15) Ed Admission (Communication) (09/16/22 12:36) Manual Differential (09/16/22 12:53) Medications Given in ED Current Medications Medications Dose Ordered Sig/Lucero Route Start Time Stop Time Status Last Admin Dose Admin Acetaminophen/ Hydrocodone Bitart 1 ea ONCE ONCE PO 09/16/22 09:15 09/16/22 09:16 DC 09/16/22 09:17 1 EA Cefazolin Sodium 1000 mg/Sodium Chloride 50 ml @ 100 mls/hr ONCE ONCE IV 09/16/22 12:45 09/16/22 13:42 DC 09/16/22 13:51 100 MLS/HR Hydromorphone HCl 0.5 mg ONCE ONCE IV 09/16/22 11:45 09/16/22 11:46 DC 09/16/22 12:09 0.5 MG Iohexol 100 ml ONCE ONCE IV 09/16/22 10:30 09/16/22 10:36 DC 09/16/22 10:56 100 ML Ketorolac Tromethamine 15 mg ONCE ONCE IVP 09/16/22 09:15 09/16/22 09:16 DC 09/16/22 09:17 15 MG Sodium Chloride 100 ml ONCE ONCE IV 09/16/22 10:30 09/16/22 10:36 DC 09/16/22 10:56 80 ML Vital Signs/I&O 09/16/22 08:56 Temp 36.3 Pulse 74 Resp 20 B/P (MAP) 145/87 (106) Pulse Ox 98 Blood Pressure Mean: 106 Departure Communication (Admissions) Initially symptoms consistent with likely simple cyst that patient had in the past. Treated conservatively with pain meds. Pt with severe pain despite pain medications. Once non-responsive to pain further workup obtained, CT with large L ovarian cyst. US called in and showed likely torsion of the left ovary. Spoke with Dr Marcelino who accepts the patient and requests OR. Patient remained stable through ER course. Impression Primary Impression: Abdominal pain Qualified Codes: R10.32 - Left lower quadrant pain Additional Impressions: Left ovarian cyst Torsion of left ovary Disposition: ADMITTED INPATIENT Condition: Stable Admissions Decision to Admit Reason: Admit from ER (General) Departure-Patient Inst. Referrals: [facility]UR[facility] (PCP) Primary Care Physician VICKIE REGAN APRN (Family) Primary Care Physician Patient Instructions: Ovarian Cyst (DC) Scripts Estradiol (Estrace Tablet) 2 Mg Tablet 2 MG PO DAILY, #90 TAB 4 Refills Prov: GEMINI MARCELINO MD 09/16/22 Oxycodone HCl/Acetaminophen (Percocet 5-325 mg Tablet) 1 Each Tablet 1 TAB PO Q6H PRN for PAIN-MODERATE (5-7), #14 TAB Prov: GEMINI MARCELINO MD 09/16/22 Docusate Sodium (Docusate Sodium) 100 Mg Capsule 100 MG PO BID PRN for CONSTIPATION-1ST LINE, #80 CAP Prov: GEMINI MARCELINO MD 09/16/22 Ibuprofen (Ibu) 600 Mg Tablet 600 MG PO Q6H PRN for PAIN-MODERATE, #80 TAB Prov: GEMINI MARCELINO MD 09/16/22 JENNIFER DE LUNA DO Sep 16, 2022 09:08
[2022-09-16] MEDS ORDERED: KETOROLAC 15 MG/ML VIAL IVP ONE (09:15)
[2022-09-16] MEDS ORDERED: HYDROcodone/APAP 5 MG/325 MG (LORTAB) TAB PO ONE (09:15)
[2022-09-16 09:20] LABS: BILIRUBIN,URINE NEGATIVE (NEGATIVE); CLARITY,URINE CLEAR; COLOR,URINE YELLOW; GLUCOSE, URINE (UA) NEGATIVE (NEGATIVE); KETONES,URINE TRACE (NEGATIVE); LEUKOCYTE ESTERASE ,URINE NEGATIVE (NEGATIVE); NITRITE,URINE NEGATIVE (NEGATIVE); PROTEIN,URINE TRACE (NEGATIVE)
[2022-09-16 09:44] LABS: BACTERIA,URINE FEW /HPF; SQUAMOUS EPITHELIAL CELL,UR 0-2 /HPF
[2022-09-16] MEDS ORDERED: morphine INJ 10 MG/ML 1ML (SYR OR VIAL) IVP STA (10:16)
[2022-09-16] MEDS ORDERED: NS 100 ML (IVPB) BAG IV ONE (10:30)
[2022-09-16] MEDS ORDERED: IOHEXOL 350 MG/ML 100 ML (OMNIPAQUE 350) VIAL IV ONE (10:30)
[2022-09-16] MEDS ORDERED: HOLD METFORMIN - RECEIVED CONTRAST 20 ML VIAL IV SCH (10:30)
--- NOTE | 2022-09-16 11:24 | Diagnostic Imaging Report ---
CLINICAL INDICATION: Patient with left lower quadrant pain. Patient with nausea and vomiting for 24 hours. Past surgical history of hysterectomy. EXAM: Axial CT scan of the abdomen and pelvis performed with 100 mL of Omnipaque 350 IV contrast. Sagittal and coronal reformatted images are created. Auto Exposure Controls were utilized during the CT exam to meet ALARA standards for radiation dose reduction. FINDINGS: There is atelectasis involving both lung bases. There are minimal-sized spurs involving the lumbar spine. There is diffuse low density seen throughout the liver with some sparing of the gallbladder fossa region. The liver is otherwise unremarkable. The spleen, pancreas, and gallbladder are unremarkable. Adrenal glands are unremarkable. There is excreted contrast within both renal collecting systems and left proximal ureter. Both kidneys are unremarkable with no mass, stone, or hydronephrosis. There is a small amount of fluid within the bladder. There is no intra-abdominal free air or free fluid. There is wall thickening involving the gastric antrum and pylorus region. Gastritis may be considered. There are nonspecific multiple loops of wall thickening involving the jejunum overlying the left side of the abdomen. There is diverticulosis involving the sigmoid colon. There is no diverticulitis. There is decompressed appearance and wall thickening involving the descending colon. Appendix is unremarkable. There is no lymphadenopathy. There is a lobulated low-density area involving the low left of midline pelvis region, which is above the dome of the bladder and slightly depresses the dome of the bladder. This area measures 6.9 cm x 5.5 cm x 4.3 cm (AP x Trans x CC). The left ovarian vein extends directly into this area, and this likely represents the left ovary. The uterus is surgically absent. Right ovary is not visualized and may be surgically resected. The extra-abdominal and extrapelvic soft tissue structures are unremarkable. IMPRESSION: 1: There is a 6.9 cm lobulated prominent area involving the expected region of the left ovary. This may represent a left ovarian mass or pelvic mass. Ultrasound of the pelvis is suggested for further evaluation. 2: There is wall thickening involving the gastric antrum and pylorus. This may be related to gastritis. 3: There is decompressed appearance of wall thickening involving the descending colon, which may be related to contraction, but colitis cannot be completely excluded. 4: The remainder of the CT exam shows no acute abdominal or pelvic process. Dictated by: Dictated on workstation # [id number]
[2022-09-16] MEDS ORDERED: HYDROmorphone 2 MG/ML VIAL (DILAUDID) IV ONE (11:45)
--- NOTE | 2022-09-16 12:38 | Diagnostic Imaging Report ---
PROCEDURE: US Non-ob pelvis comp/trans. TECHNIQUE: Multiple realtime grayscale images were obtained of the pelvis in various projections endovaginally. Transabdominal imaging was also performed. INDICATION: History of previous hysterectomy. Left pelvic pain. COMPARISON: CT from earlier same day. FINDINGS: Uterus and right ovary are surgically absent. Left ovary is enlarged. It measures 5.8 x 4 x 5.5 cm. There is a fairly large heterogeneous cystic structure that measures 3 x 2.6 x 3.1 cm. Moderate amount of debris is seen within the cystic structure. The cyst wall is irregularly thickened as well. Background ovarian stroma is slightly heterogeneous in echotexture. 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 IMPRESSION: 1. Left ovary is enlarged and demonstrates prominent heterogeneous cystic structure. Lack of arterial flow is also noted. Although there is demonstrable venous flow, constellation of findings are concerning for torsion. 2. Heterogeneous enlarged left complex cystic lesion may be on the basis of hemorrhagic cyst. If surgical intervention is deferred, two-cycle follow-up is recommended to ensure appropriate interval resolution. Dictated by: Dictated on workstation # [id number]
[2022-09-16] MEDS ORDERED: ceFAZolin INJECTION 1,000 MG in NS (IVPB) 50 ML IV ONE (12:45)
--- NOTE | 2022-09-16 12:50 | History & Physical ---
History and Physical Date Seen by Provider: Sep 16, 2022 Time Seen by Provider: 12:45 This patient is a 36-year-old 2 para 2 2 female who presented with emergency department today with complaint of pain since last night that significantly worsened through the day to the point where it was unrelenting and she has not been able to get relief with Motrin Tylenol or Percocet. Patient does have a long history of pelvic pain and ovarian cyst. She is status post hysterectomy and right salpingo-oophorectomy. Patient has no bowel or bladder complaints. Evaluation in the immediate emergency presentation included a CT of the abdomen pelvis that was confirmatory of a left adnexal mass. It mentions some potential inflammation at the pylorus and possibly some diverticulosis without diverticulitis. The complex left adne xal cyst was the most notable finding on the CT. This was followed with an ultrasound that showed complex left ovarian cyst with impaired blood flow consistent with a torsion. There was no significant free fluid there were no other abnormal findings. Of note the bladder ureters and kidneys were normal on the CT scan. Patient has had several pain medication while in the emergency department with some improvement of her pain. We discussed the CT and ultrasound findings and the suspicion for a torsed ovary. Patient understands the treatment would be immediate surgical evaluation with conservation of the ovary if possible but removal of the ovary if it appears to have been compromised significantly by the torsion.Patient is agreeable to laparoscopic evaluation. Allergies are none Medications are duloxetine gabapentin Synthroid simethicone and vbqz-heb-kpprihi pain medications Past medical history is negative except for hypothyroidism and apparently some episodic gastritis symptoms Patient denies tobacco drug and alcohol use she is Family history is noncontributory Lab work is pending with a CBC. Urine was essentially normal HEENT exam is normal Neck is supple no lymphadenopathy no thyromegaly Abdomen is soft tender in the left lower quadrant there is no guarding there is no rebound there is no rigidity. There is no palpable masses. The exam is compromised by the patient's morbid obesity Pelvic exam is deferred Extremities show no clubbing or cyanosis. Assessment and plan Severe abdominal pain presenting as acute abdomen with left adnexal mass suspicious for torsed left ovarian cyst. Plan is proceed to the operating room for evaluation and treatment including possible left oophorectomy. Surgical risk complications recovery and follow-up have been fully discussed. Patient's questions and those of her partner are answered. Patient is ready to proceed to the OR Acute abdomen left adnexal cystic mass Allergies and Home Medications Allergies Coded Allergies: No Known Drug Allergies (Unverified , 10/30/16) Patient Home Medication List Home Medication List Reviewed: Yes Docusate Sodium (Docusate Sodium) 100 Mg Capsule, 100 MG PO BID PRN for CON STIPATION-1ST LINE Prescribed by: NIR MILLER on 06/21/19920 Duloxetine HCl (Cymbalta) 30 Mg Capsule.dr, 30 MG PO DAILY, (Reported) Entered as Reported by: SUDEEP ROJO on 11/02/18 133 Duloxetine HCl (Cymbalta) 60 Mg Capsule.dr, 60 MG PO DAILY, (Reported) Entered as Reported by: SUDEEP ROJO on 11/02/18 1337 Gabapentin (Gabapentin) 100 Mg Capsule, 200 MG PO HS, (Reported) Entered as Reported by: SUDEEP ROJO on 06/10/19 1046 Hydrocodone Bit/Acetaminophen (Lortab 7.5 Mg Tablet) 1 Ea Tablet, 2 EA PO Q6H PRN for Pain-See Instructions Prescribed by: NIR MILLER on 06/21/19920 Ibuprofen (Ibu) 600 Mg Tablet, 600 MG PO Q6H PRN for PAIN-MODERATE Prescribed by: NIR MILLER on 06/21/19920 Simethicone (Simethicone) 80 Mg Tab.chew, 40 MG PO TID PRN for INDIGESTION 2ND LINE Prescribed by: NIR MILLER on 06/21/19920 GEMINI NINO MD Sep 16, 2022 12:50
--- NOTE | 2022-09-16 12:57 | Discharge Inst-Surgical ---
Discharge Inst-Surgical Depart Medication/Instructions New, Converted or Re-Newed RX: Other Consults/Follow Up Orders & Referrals Follow Up Appt: Call to make follow up appt. for patient in 1 weeks. Activity: Rest for 24 hours, than as tolerated. Wound Care: May remove Band-Aid tomorrow. Replace as desired. Keep incisions clean and dry. Wash daily with soap and water. Patient may continue all current home medications Diet: As tolerated shower or tub bathe as desired. No driving for 24 hours, no alcoholic beverages for 24 hours, and nothing per vagina (no tampons, douching, or intercoarse) for 2 weeks. Patient to return to the clinic as soon as possible for: Temperature greater than 101F, Severe Pain, Foul discharge from incision or vagina, Excessive Bleeding (more than a period). Activity Activity as Tolerated: No Diet Discharge Diet: No Restrictions GEMINI NINO MD Sep 16, 2022 12:57
[2022-09-16 13:00] LABS: BASOPHILS % (AUTO) 0 % (0-10); EOSINOPHILS % (AUTO) 0 % (0-10); HEMATOCRIT 46 % (35-52); HEMOGLOBIN 15.2 g/dL (11.5-16.0); LYMPHOCYTES # (AUTO) 0.6 10^3/uL (1.0-4.0); LYMPHOCYTES % (AUTO) 5 % (12-44); MEAN CORPUSCULAR HEMOGLOBIN 28 pg (25-34); MEAN CORPUSCULAR HGB CONC 33 g/dL (32-36); MEAN CORPUSCULAR VOLUME 86 fL (80-99); MEAN PLATELET VOLUME 10.1 fL (9.0-12.2); MONOCYTES # (AUTO) 0.3 10^3/uL (0.0-1.0); MONOCYTES % (AUTO) 3 % (0-12); NEUTROPHILS # (AUTO) 10.7 10^3/uL (1.8-7.8); NEUTROPHILS % (AUTO) 91 % (42-75); PLATELET COUNT 274 10^3/uL (130-400); WHITE BLOOD COUNT 11.7 10^3/uL (4.3-11.0)
[2022-09-16] MEDS ORDERED: KETOROLAC 30 MG/ML VIAL IVP ONE (13:00)
[2022-09-16] MEDS ORDERED: MEPERIDINE (DEMEROL) INJ 100 MG/ML IM ONE (13:00)
[2022-09-16] MEDS ORDERED: oxyCODONE/APAP 5/325MG (PERCOCET 5) TABLET PO PRN (13:00)
[2022-09-16] MEDS ORDERED: D5 LR IV SOLUTION 1,000 ML IV SCH (13:00)
[2022-09-16] MEDS ORDERED: ONDANSETRON 4 MG/2 ML (SDV) Z0FRAN IVP PRN ×2 (13:00→15:15)
[2022-09-16] MEDS ORDERED: PROMETHAZINE INJ 25 MG/ML (PHENERGAN) AMP IM ONE (13:00)
[2022-09-16 13:22] LABS: BAND NEUTROPHILS 0 %; BASOPHILS % (MANUAL) 0 %; EOSINOPHILS % (MANUAL) 0 %; LYMPHOCYTES % (MANUAL) 4 %; MONOCYTES % (MANUAL) 1 %; NEUTROPHILS % (MANUAL) 95 %; RBC MORPH NORMAL
[2022-09-16] MEDS ORDERED: LACTATED RINGERS 1,000 ML IV PRN (13:30)
[2022-09-16] MEDS ORDERED: BUP/EPI 0.25% 1:200,000 (MARCAINE) 30 ML VIAL ONE (13:30)
[2022-09-16] MEDS ORDERED: fentaNYL INJ 100 MCG/2 ML AMP ONE (13:33)
[2022-09-16] MEDS ORDERED: MIDAZOLAM 2 MG/2 ML (VERSED) VIAL ONE (13:33)
[2022-09-16] MEDS ORDERED: SUCCINYLCHOLINE INJ 20 MG/1 ML 10 ML VIAL ONE (14:08)
[2022-09-16] MEDS ORDERED: LIDOCAINE PF 2% 5 ML (XYLOCAINE) VIAL ONE (14:08)
[2022-09-16] MEDS ORDERED: KETOROLAC 30 MG/ML VIAL ONE (14:08)
[2022-09-16] MEDS ORDERED: ROCURONIUM 10 MG/ML 5 ML SYRINGE IV ONE (14:08)
[2022-09-16] MEDS ORDERED: ONDANSETRON 4 MG/2 ML (SDV) Z0FRAN ONE (14:08)
[2022-09-16] MEDS ORDERED: proPOfol 200 MG/20 ML (DIPRIVAN) VIAL IV ONE (14:08)
[2022-09-16] MEDS ORDERED: SUGAMMADEX 500 MG/5 ML VIAL (BRIDION) IV ONE (14:09)
[2022-09-16] MEDS ORDERED: morphine INJ 10 MG/ML 1ML (SYR OR VIAL) ONE (14:16)
[2022-09-16] MEDS ORDERED: BUP/EPI 0.25% 1:200,000 (MARCAINE) 30 ML VIAL INJ ONE (14:24)
[2022-09-16] MEDS ORDERED: SEVOFLURANE (ULTANE) 15 ML INHAL SOLN ONE (14:33)
[2022-09-16] MEDS ORDERED: DOCU100C37 PO (14:51)
[2022-09-16] MEDS ORDERED: IBUP-844 PO (14:51)
[2022-09-16] MEDS ORDERED: ESTR2TAB4 PO (14:52)
[2022-09-16] MEDS ORDERED: OXYC1TAB87 PO (14:52)
--- NOTE | 2022-09-16 15:14 | Anesthesia-General Post-Op ---
General Patient Condition Mental Status/LOC: Same as Preop Cardiovascular: Satisfactory Nausea/Vomiting: Absent Respiratory: Satisfactory Pain: Controlled Complications: Absent Post Op Complications Complications None Follow Up Care/Instructions Patient Instructions None needed. Anesthesia/Patient Condition Patient Condition Patient is doing well, no complaints, stable vital signs, no apparent adverse anesthesia problems. No complications reported per nursing. CHRISTEN CALDWELL CRNA Sep 16, 2022 15:14
[2022-09-16] MEDS ORDERED: morphine INJ 10 MG/ML 1ML (SYR OR VIAL) IVP ONE ×2 (15:15)
--- NOTE | 2022-09-16 16:20 | OPERATIVE REPORT ---
DATE OF SERVICE: 09/16/2022 PREOPERATIVE DIAGNOSIS: Torsed left ovary and acute abdomen. POSTOPERATIVE DIAGNOSIS: Torsed left ovary and acute abdomen. OPERATIVE PROCEDURE: Laparoscopic left adnexectomy. OPERATIVE DESCRIPTION: With the patient in the supine position, under satisfactory general anesthesia, she was repositioned in the dorsal lithotomy position in the Eulogio stirrups and prepped and draped in the usual fashion for abdominal and vaginal surgery. The urinary bladder was drained with a Red José catheter. Vagina was packed with a moist Kerlix gauze to distend the upper vagina for identification of the vaginal apex intraoperatively. A 5 mm incision was made in the patient's left upper quadrant. Veress needle was placed through that incision into the abdominal cavity. Correct placement could not be confirmed, so a stab wound was made above the umbilicus, Veress needle was placed there and the abdomen was insufflated with 2.4 liters of carbon dioxide. The Veress needle was removed. A 5 mm Optiview laparoscopic port was placed through the left upper quadrant incision. The abdominal wall was transilluminated and a 5 mm port was placed suprapubically. A 12 mm port through an incision of that size was placed in the inferior margin of the umbilicus. The patient was placed in Trendelenburg allowing the bowel to spill out of the pelvis. There was a mass occupying the cul-de-sac that arose from the left adnexa. It was obviously torsed over 360 degrees. The tissue was black, cyanotic appearing. There was no other abnormal pathology in the pelvis. Endo-SANDRA was placed across the base of the torsion and fired, severing the left adnexa from its attachment. That adnexa was then placed in an Endobag and brought out through the umbilical incision which had to be extended a bit in order to facilitate removal of the mass. With the mass removed, the operative instruments were removed as were the ports. The abdomen was evacuated of the insufflating gas. The skin incisions were closed with interrupted nylon sutures. The fascia at the infraumbilical incision was closed with a [id number] suture of 2-0 Vicryl. The Kerlix gauze was removed from the vagina. Sponge and needle counts were correct. Blood loss was minimal. The patient was now uneventfully awakened from her general anesthesia and transferred to the recovery room in stable condition. Job ID: [id number] DocumentID: [id number] Dictated Date: 09/16/2022 15:14:45 Cover Creaser Date: 09/16/2022 16:17:00 Dictated By: GEMINI NINO MD MTDD
== END 2022-09-16 18:50 | disposition home or self-care (01) ==
LOC: EDUNIT# 08:50 → ER 08:52 → SDC 12:58 → WS 15:50 → SDC 18:50
PROVIDERS: ATTEND Obstetrics & Gynecology
DX: N83.512 Torsion of left ovary and ovarian pedicle (principal); N83.292 Other ovarian cyst, left side; E66.01 Morbid (severe) obesity due to excess calories; Z68.43 Body mass index [BMI] 50.0-59.9, adult
CPT/HCPCS: 36415; 74177; 76830; 76856; 81000; 85007; 85027; 86850; 86900; 86901; 96374; 96375

== ENCOUNTER 2022-09-22 11:00 | Emergency (ER) | payer BC ==
[~2022-09-22] VITALS: Ht 165 cm; Wt 167.0 kg
[~2022-09-22 11:00] MED LIST changes: +ESTR2TAB4 PO; +OXYC1TAB87 PO
--- NOTE | 2022-09-22 11:22 | ED Integumentary General ---
General Chief Complaint: Post OP Complications/Pain Stated Complaint: POSS POST OP INFECTION Nursing Triage Note: PT AMB TO TRIAGE, PT HAD ABD SURG ON FRIDAY AND TODAY POSSIBLE HAS INFECTION IN ABD LOWER AREA REDDEND PAINFUL AND WARM TO TOUCH. PT IS CURRENTLY HAS BEEN ON AN ANTIBIOTIC (BACTRIM DS) FOR 3 DAYS AND AREA IS GETTING WORSE Source: patient Exam Limitations: no limitations History of Present Illness Date Seen by Provider: Sep 22, 2022 Time Seen by Provider: 11:22 Initial Comments 36 y/o female presents today with c/o rash around surgical site. Pt states she had ovary removed on 09/16/22, has been taking Bactrim x 3 days. Pt noticed redness and itching around the surgical site for past couple of days, but is worse today. She denies pain, but states it is very itchy. She took benadryl last night x 1 but it didn't help. Timing/Duration: constant, getting worse Severity: mild Location: torso Possible Cause: other (recent surgery on 09/16/22) Modifying Factors: worse with scratching Associated Symptoms: No blisters, No change in skin texture, No edema, No fever, No flushing, No malaise, No numbness, No paresthesia, No petechiae; rash; No swelling/mass/lumps Allergies and Home Medications Allergies Coded Allergies: No Known Drug Allergies (Unverified , 10/30/16) Patient Home Medication List Home Medication List Reviewed: Yes Docusate Sodium (Docusate Sodium) 100 Mg Capsule, 100 MG PO BID PRN for CONSTIPATION-1ST LINE Prescribed by: GEMINI RODRIGUEZ on 09/16/22 1451 Duloxetine HCl (Cymbalta) 30 Mg Capsule.dr, 30 MG PO DAILY, (Reported) Entered as Reported by: SUDEEP ROJO on 11/02/18 1337 Duloxetine HCl (Cymbalta) 60 Mg Capsule.dr, 60 MG PO DAILY, (Reported) Entered as Reported by: SUDEEP ROJO on 11/02/18 1337 Estradiol (Estrace Tablet) 2 Mg Tablet, 2 MG PO DAILY Prescribed by: GEMINI RODRIGUEZ on 09/16/22 1452 Gabapentin (Gabapentin) 100 Mg Capsule, 200 MG PO HS, (Reported) Entered as Reported by: SUDEEP ROJO on 06/10/19 1046 Hydrocodone Bit/Acetaminophen (Lortab 7.5 Mg Tablet) 1 Ea Tablet, 2 EA PO Q6H PRN for Pain-See Instructions Prescribed by: NIR MILLER on 06/21/19920 Ibuprofen (Ibu) 600 Mg Tablet, 600 MG PO Q6H PRN for PAIN-MODERATE Prescribed by: GEMINI RODRIGUEZ on 09/16/22 1451 Oxycodone HCl/Acetaminophen (Percocet 5-325 mg Tablet) 1 Each Tablet, 1 TAB PO Q6H PRN for PAIN-MODERATE (5-7) Prescribed by: GEMINI RODRIGUEZ on 09/16/22 1452 Simethicone (Simethicone) 80 Mg Tab.chew, 40 MG PO TID PRN for INDIGESTION 2ND LINE Prescribed by: NIR MILLER on 06/21/19920 Review of Systems Review of Systems Constitutional: no symptoms reported Respiratory: no symptoms reported Cardiovascular: no symptoms reported Gastrointestinal: no symptoms reported Genitourinary: no symptoms reported Musculoskeletal: no symptoms reported Skin: pruritus, rash Psychiatric/Neurological: No Symptoms Reported Endocrine: No Symptoms Reported Hematologic/Lymphatic: No Symptoms Reported Past Kbbyukl-Gfogam-Ghaaju Hx Patient Social History Substance use?: No Alcohol Use?: No Pt feels they are or have been: No Immunizations Up To Date Tetanus Booster (TDap): Less than 5yrs PED Vaccines UTD: No Influenza Vaccine Up-to-Date: No; Not Current Seasonal Allergies Seasonal Allergies: No Past Medical History Surgery/Hospitalization HX: HYSTERECTOMY, R SIDE. 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) Hypothyroidsim HEENT: No Cancer: No Psychosocial: No Integumentary: No Blood Disorders: No Adverse Reaction/Blood Tranf: No (N/A) Family Medical History Diabetes mellitus G8 BROTHER Hypertension 19 FATHER 19 MOTHER No Pertinent Family Hx Physical Exam Vital Signs Vital Signs - First Documented 09/22/22 11:00 Temp 36.5 Pulse 86 Resp 18 B/P (MAP) 164/91 (115) Pulse Ox 97 Capillary Refill : Less Than 3 Seconds General Appearance: WD/WN, no apparent distress HEENT: PERRL/EOMI, normal ENT inspection, TMs normal, pharynx normal Cardiovascular: normal peripheral pulses, regular rate, rhythm Respiratory: chest non-tender, lungs clear, normal breath sounds, no respiratory distress Gastrointestinal: normal bowel sounds, non tender, soft, other (surgical incision at 6:00 of umbilicus--dry, well healing; no induration, swelling, or warmth noted, no drainage present) Skin Problem Location: other (lower abdomen) Skin Problem Character: blanching, erythema, urticarial Lymphatic: no adenopathy Progress/Results/Core Measures Results/Orders My Orders Orders - WALT CLARKE APRN Diphenhydramine 2% Cream (Benadryl 2% Cr (09/22/22 13:00) Diphenhydramine Tablet (Benadryl Tablet) (09/22/22 11:30) Diphenhydramine 2% Cream (Benadryl 2% Cr (09/22/22 11:39) Medications Given in ED Current Medications Medications Dose Ordered Sig/Lucero Route Start Time Stop Time Status Last Admin Dose Admin Diphenhydramine HCl 50 mg ONCE ONCE PO 09/22/22 11:30 09/22/22 11:31 DC 09/22/22 11:34 50 MG Diphenhydramine HCl APPLY SPARINGLY TID ONCE TOP 09/22/22 13:00 09/22/22 11:55 DC 09/22/22 11:46 1 GM Vital Signs/I&O 09/22/22 09/22/22 11:00 11:55 Temp 36.5 36.5 Pulse 86 86 Resp 18 18 B/P (MAP) 164/91 (115) 164/91 Pulse Ox 97 97 Blood Pressure Mean: 115 Departure Impression Primary Impression: Urticarial rash Disposition: 01 HOME, SELF-CARE Condition: Stable Departure-Patient Inst. Decision time for Depature: 11:39 Referrals: [facility]LAURIE (PCP) Primary Care Physician VICKIE REGAN APRN (Family) Primary Care Physician Add. Discharge Instructions: Benadryl 25-50mg every 4-6 hours as needed. Benadryl cream, hydrocortisone cream to area as needed for itching. Wear loose fitting clothing. Continue ant ibiotic as prescribed. Follow up with new/worsening concerns WALT CLARKE APRN Sep 22, 2022 11:22
[2022-09-22] MEDS ORDERED: diphenhydrAMINE 25 MG TAB (BENADRYL) PO ONE (11:30)
[2022-09-22] MEDS ORDERED: diphenhydrAMINE 2% 30 GM CR (ALLERGY CREAM) ONE (11:39)
[2022-09-22 11:55] VITALS: BP 164/91
[2022-09-22] MEDS ORDERED: diphenhydrAMINE 2% 30 GM CR (ALLERGY CREAM) TOP ONE (13:00)
== END 2022-09-22 11:55 | disposition home or self-care (01) ==
LOC: EDUNIT# 11:00 → ER 11:01
DX: L50.9 Urticaria, unspecified (principal); E66.9 Obesity, unspecified; Z68.44 Body mass index [BMI] 60.0-69.9, adult
CPT/HCPCS: 99283

== ENCOUNTER 2022-11-03 07:56 | Emergency (ER) | payer BC ==
[~2022-11-03] VITALS: Ht 165 cm; Wt 175.5 kg
[2022-11-03] MEDS ORDERED: DICYCLOMINE 10 MG (BENTYL) CAP PO STA (08:11)
--- NOTE | 2022-11-03 08:11 | ED General ---
General Stated Complaint: CHEST PAIN, NAUSEA Source of Information: Patient Exam Limitations: No Limitations History of Present Illness Date Seen by Provider: Nov 03, 2022 Time Seen by Provider: 08:01 Initial Comments Patient is a 37-year-old female who presents to the emergency room with a chief complaint of epigastric/low chest discomfort radiating more into the right upper abdomen onset about 3/4 AM this morning. She states she was nauseous. She denies any sweating, shortness of breath. No fever. No diarrhea. Last normal bowel movement was yesterday. States that she ate grilled hamburgers for dinner last night. She went to [facility] urgent care this morning and was sent to the emergency department. At its worst she rated it an "8". Currently a "4". She did not take anything for the pain at home. She has history of thyroid issues, depression. Had pain in the left upper chest that seem to radiate into her left arm about a week ago. This was not notably after food. Nothing made the pain any better or any worse. No associated symptoms at that time. It spontaneously resolved. She is a non-smoker, no history of hypertension. No family history of early coronary artery disease. No drug use. Timing/Duration: 4-6 Hours Severity: Moderate Associated Systoms: Chest Pain, Nausea/Vomiting Allergies and Home Medications Allergies Coded Allergies: No Known Drug Allergies (Unverified , 10/30/16) Patient Home Medication List Home Medication List Reviewed: Yes Docusate Sodium (Docusate Sodium) 100 Mg Capsule, 100 MG PO BID PRN for CONSTIPATION-1ST LINE Prescribed by: GEMINI RODRIGUEZ on 09/16/22 1451 Duloxetine HCl (Cymbalta) 30 Mg Capsule.dr, 30 MG PO DAILY, (Reported) Entered as Reported by: SUDEEP ROJO on 11/02/18 1337 Duloxetine HCl (Cymbalta) 60 Mg Capsule.dr, 60 MG PO DAILY, (Reported) Entered as Reported by: SUDEEP ROJO on 11/02/18 1337 Estradiol (Estrace Tablet) 2 Mg Tablet, 2 MG PO DAILY Prescribed by: GEMINI RODRIGUEZ on 09/16/22 1452 Gabapentin (Gabapentin) 100 Mg Capsule, 200 MG PO HS, (Reported) Entered as Reported by: SUDEEP ROJO on 06/10/19 1046 Hydrocodone Bit/Acetaminophen (Lortab 7.5 Mg Tablet) 1 Ea Tablet, 2 EA PO Q6H PRN for Pain-See Instructions Prescribed by: NIR MILLER on 06/21/19920 Ibuprofen (Ibu) 600 Mg Tablet, 600 MG PO Q6H PRN for PAIN-MODERATE Prescribed by: GEMINI RODRIGUEZ on 09/16/22 1451 Oxycodone HCl/Acetaminophen (Percocet 5-325 mg Tablet) 1 Each Tablet, 1 TAB PO Q6H PRN for PAIN-MODERATE (5-7) Prescribed by: GEMINI RODRIGUEZ on 09/16/22 1452 Simethicone (Simethicone) 80 Mg Tab.chew, 40 MG PO TID PRN for INDIGESTION 2ND LINE Prescribed by: NIR MILLER on 06/21/19920 Review of Systems Review of Systems Constitutional: see HPI EENTM: no symptoms reported Respiratory: no symptoms reported Cardiovascular: chest pain Gastrointestinal: nausea Genitourinary: no symptoms reported : No (Hysterectomy) Musculoskeletal: no symptoms reported Skin: no symptoms reported Psychiatric/Neurological: No Symptoms Reported All Other Systems Reviewed Negative Unless Noted: Yes Past Okcsjfp-Hlmzuj-Veexzo Hx Immunizations Up To Date Tetanus Booster (TDap): Less than 5yrs PED Vaccines UTD: No Seasonal Allergies Seasonal Allergies: No Past Medical History Surgery/Hospitalization HX: HYSTERECTOMY, R SIDE. 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 0.0oz. [id number]; 61.00 BMI Method:Stated General Appearance: No Apparent Distress, WD/WN, Obese Eyes: Bilateral Eye Normal Inspection, Bilateral Eye PERRL, Bilateral Eye EOMI HEENT: PERRL/EOMI Neck: Normal Inspection, Supple Respiratory: Lungs Clear, Normal Breath Sounds, No Accessory Muscle Use, No Respiratory Distress Cardiovascular: Regular Rate, Rhythm, Normal Peripheral Pulses Gastrointestinal: Soft, Tenderness (Tenderness epigastrium/right upper quadrant. Positive Aparicio's.) Extremity: Normal Capillary Refill, Normal Inspection, Normal Range of Motion, No Pedal Edema Neurologic/Psychiatric: Alert, Oriented x3, No Motor/Sensory Deficits, Normal Mood/Affect Skin: Normal Color, Warm/Dry Progress/Results/Core Measures Suspected Sepsis SIRS Temperature: Pulse: Respiratory Rate: Laboratory Tests 11/03/22 08:10: White Blood Count 9.0 Blood Pressure / Mean: Laboratory Tests 11/03/22 08:10: Creatinine 0.74, Platelet Count 271, Total Bilirubin 0.3 Results/Orders Lab Results Laboratory Tests Test 11/03/22 08:10 Range/Units White Blood Count 9.0 4.3-11.0 10^3/uL Red Blood Count 4.96 3.80-5.11 10^6/uL Hemoglobin 14.1 11.5-16.0 g/dL Hematocrit 43 35-52 % Mean Corpuscular Volume 86 80-99 fL Mean Corpuscular Hemoglobin 28 25-34 pg Mean Corpuscular Hemoglobin Concent 33 32-36 g/dL Red Cell Distribution Width 13.2 10.0-14.5 % Platelet Count 271 130-400 10^3/uL Mean Platelet Volume 9.6 9.0-12.2 fL Immature Granulocyte % (Auto) 0 % Neutrophils (%) (Auto) 76 H 42-75 % Lymphocytes (%) (Auto) 17 12-44 % Monocytes (%) (Auto) 6 0-12 % Eosinophils (%) (Auto) 1 0-10 % Basophils (%) (Auto) 0 0-10 % Neutrophils # (Auto) 6.8 1.8-7.8 10^3/uL Lymphocytes # (Auto) 1.5 1.0-4.0 10^3/uL Monocytes # (Auto) 0.5 0.0-1.0 10^3/uL Eosinophils # (Auto) 0.1 0.0-0.3 10^3/uL Basophils # (Auto) 0.0 0.0-0.1 10^3/uL Immature Granulocyte # (Auto) 0.0 0.0-0.1 10^3/uL Sodium Level 140 135-145 MMOL/L Potassium Level 4.0 3.6-5.0 MMOL/L Chloride Level 106 98-107 MMOL/L Carbon Dioxide Level 24 21-32 MMOL/L Anion Gap 10 5-14 MMOL/L Blood Urea Nitrogen 9 7-18 MG/DL Creatinine 0.74 0.60-1.30 MG/DL Estimat Glomerular Filtration Rate 108 BUN/Creatinine Ratio 12 Glucose Level 116 H 70-105 MG/DL Calcium Level 8.7 8.5-10.1 MG/DL Corrected Calcium 8.7 8.5-10.1 MG/DL Total Bilirubin 0.3 0.1-1.0 MG/DL Aspartate Amino Transf (AST/SGOT) 17 5-34 U/L Alanine Aminotransferase (ALT/SGPT) 22 0-55 U/L Alkaline Phosphatase 98 40-136 U/L Total Protein 7.2 6.4-8.2 GM/DL Albumin 4.0 3.2-4.5 GM/DL Lipase 13 8-78 U/L My Orders Orders - CRISTIAN GARCIA MD Ed Iv/Invasive Line Start (11/03/22 08:11) Cbc With Automated Diff (11/03/22 08:11) Comprehensive Metabolic Panel (11/03/22 08:11) Lipase (11/03/22 08:11) Dicyclomine Capsule (Bentyl Capsule) (11/03/22 08:11) Vital Signs/I&O 11/03/22 08:00 Temp 36.8 Pulse 77 Resp 18 B/P (MAP) 145/107 (120) Pulse Ox 100 Capillary Refill : Progress Note : Time: 09:24 Progress Note Patient seen and evaluated by me, 37-year-old female with epigastric/lower chest pain. Evaluation today includes physical exam, CBC, Chem-12 and lipase, EKG. Patient is slightly hypertensive however it is a little difficult to get a cuff on her arm and likely therefore an adequate blood pressure. She is not tachycardic, she is not hypoxic. No increased work of breathing noted. Differential diagnosis based on history and physical exam includes biliary colic, cholecystitis, pancreatitis, gastritis. EKG shows normal sinus rhythm without ectopy, ST segment elevation. CBC is normal, Chem-12 and lipase are within normal limits. Patient is treated in the emergency department with 20 mg of p.o. dicyclomine. She had complete resolution of her discomfort. Her labs being reassuring do not reflect any acute cholecystitis. I did have a discussion with the patient that she would be at risk for dysfunctional gallblad adele. Low clinical risk for acute coronary syndrome as her only risk factor would be her obesity. Patient is counseled on return precautions. I advised that I would write her for some dicyclomine to take at home and that she should follow-up with her primary care provider for gallbladder ultrasound. Gallbladder diet precautions will be given. She is comfortable with plan of car e. She verbalized understanding. All questions are sought and answered. Patient is stable for discharge. ECG Initial ECG Impression Date: Nov 03, 2022 Initial ECG Impression Time: 08:09 Initial ECG Rate: 72 Initial ECG Intervals: Normal Comment Isolated T wave inversion in lead III. Otherwise no ectopy, no ST segment elevation or depression. Departure Impression Primary Impression: Atypical chest pain Disposition: 01 HOME, SELF-CARE Condition: Improved Departure-Patient Inst. Decision time for Depature: 09:27 Referrals: DOMO BROUSSARD DO (PCP/Family) Primary Care Physician Patient Instructions: Chest Pain That Is Not Caused by the Heart (DC), Gallbladder Diet Add. Discharge Instructions: Try and avoid fatty foods until you are followed up by your primary care physician and have your gallbladder ultrasound. Dicyclomine 20 mg tablets 30 minutes before eating up to 4 times daily will help with abdominal discomfort. If you develop worsening pain especially with fever, vomiting please come back to the emergency room for reevaluation. Please call your primary care physician's office tomorrow to schedule a follow- up visit with gallbladder ultrasound. Scripts Dicyclomine HCl (Dicyclomine HCl) 20 Mg Tablet 20 MG PO QIDACHKaren, #60 TAB Prov: CRISTIAN GARCIA MD 11/03/22 Copy Copies To 1: DOMO BROUSSARD KATHRYN M MD Nov 03, 2022 08:11
[2022-11-03 08:18] LABS: BASOPHILS % (AUTO) 0 % (0-10); EOSINOPHILS # (AUTO) 0.1 10^3/uL (0.0-0.3); EOSINOPHILS % (AUTO) 1 % (0-10); HEMATOCRIT 43 % (35-52); HEMOGLOBIN 14.1 g/dL (11.5-16.0); LYMPHOCYTES # (AUTO) 1.5 10^3/uL (1.0-4.0); LYMPHOCYTES % (AUTO) 17 % (12-44); MEAN CORPUSCULAR HEMOGLOBIN 28 pg (25-34); MEAN CORPUSCULAR HGB CONC 33 g/dL (32-36); MEAN CORPUSCULAR VOLUME 86 fL (80-99); MEAN PLATELET VOLUME 9.6 fL (9.0-12.2); MONOCYTES # (AUTO) 0.5 10^3/uL (0.0-1.0); MONOCYTES % (AUTO) 6 % (0-12); NEUTROPHILS # (AUTO) 6.8 10^3/uL (1.8-7.8); NEUTROPHILS % (AUTO) 76 % (42-75); PLATELET COUNT 271 10^3/uL (130-400)
[2022-11-03 08:35] LABS: CALCIUM 8.7 MG/DL (8.5-10.1)
[2022-11-03 08:36] LABS: TOTAL PROTEIN 7.2 GM/DL (6.4-8.2)
[2022-11-03 08:38] LABS: BILIRUBIN,TOTAL 0.3 MG/DL (0.1-1.0)
[2022-11-03 08:39] LABS: CREATININE SERUM 0.74 MG/DL (0.60-1.30)
[2022-11-03] MEDS ORDERED: DICY20TA PO (09:29)
[2022-11-03 09:35] VITALS: BP 118/99
== END 2022-11-03 09:35 | disposition home or self-care (01) ==
LOC: EDUNIT# 07:56 → ER 07:57
DX: R07.89 Other chest pain (principal); E66.9 Obesity, unspecified; I10 Essential (primary) hypertension; Z68.44 Body mass index [BMI] 60.0-69.9, adult; Z90.722 Acquired absence of ovaries, bilateral; Z28.310 Unvaccinated for COVID-19
CPT/HCPCS: 36415; 80053; 83690; 85025; 93005; 99283

== ENCOUNTER 2022-11-19 05:38 | Outpatient (CLI) | payer BC ==
[~2022-11-19] VITALS: Ht 165.1 cm; Wt 172.7 kg
[~2022-11-19 05:38] MED LIST changes: +DICY20TA PO
[2022-11-20] MEDS ORDERED: LEVO75CA5 PO (11:46)
[2022-11-20] MEDS ORDERED: TOPI50TA37 PO (11:48)
[2022-11-21] MEDS ORDERED: ACHD5005 PO (13:52)
== END 2022-11-20 13:36 | disposition home or self-care (01) ==
LOC: PREOP 05:38
PROVIDERS: ATTEND Surgery
DX: Z01.818 Encounter for other preprocedural examination (principal)

== ENCOUNTER 2022-11-21 09:09 | Day surgery (SDC) | payer BC ==
[~2022-11-21] VITALS: Ht 165 cm; Wt 172.7 kg
[2022-11-21] VITALS (11 sets, daily range): BP systolic 119–160; BP diastolic 77–99
[~2022-11-21 09:09] MED LIST changes: +LEVO75CA5 PO; +TOPI50TA37 PO
--- NOTE | 2022-11-21 09:38 | Progress Note-Pre Operative ---
Pre-Operative Progress Note Date H&P Reviewed: Nov 21, 2022 Time H&P Reviewed: 09:38 History & Physical: H&P Reviewed, Patient Examed, No changes noted Pre-Operative Diagnosis: cholelithiasis DWAINE DUBON DO Nov 21, 2022 09:38
[2022-11-21] MEDS ORDERED: ceFAZolin INJECTION 2,000 MG in NS (IVPB) 50 ML IV ONE (10:00)
[2022-11-21] MEDS: LACTATED RINGERS 1,000 ML IV PRN ×2 (10:24→13:00)
[2022-11-21] MEDS ORDERED: BUP/EPI 0.5% 1:200,000 (SENSORCAINE) 30 ML VIAL ONE (10:39)
[2022-11-21] MEDS ORDERED: ONDANSETRON 4 MG/2 ML (SDV) Z0FRAN ONE (11:02)
[2022-11-21] MEDS ORDERED: GLYCOPYRROLATE 0.2 MG/ML (ROBINUL) 2 ML VIAL ONE (11:02)
[2022-11-21] MEDS ORDERED: proPOfol 200 MG/20 ML (DIPRIVAN) VIAL IV ONE (11:02)
[2022-11-21] MEDS ORDERED: LIDOCAINE PF 2% 5 ML (XYLOCAINE) VIAL ONE (11:02)
[2022-11-21] MEDS ORDERED: fentaNYL INJ 100 MCG/2 ML AMP ONE (11:03)
[2022-11-21] MEDS ORDERED: MIDAZOLAM 2 MG/2 ML (VERSED) VIAL ONE (11:03)
[2022-11-21] MEDS ORDERED: ROCURONIUM 50 MG/5 ML (ZEMURON) VIAL IV ONE ×2 (11:03→12:56)
[2022-11-21] MEDS ORDERED: NEOSTIGMINE (BLOXIVERZ ) 1 MG/1ML 10 ML VIAL ONE (11:03)
[2022-11-21] MEDS ORDERED: BUP/EPI 0.5% 1:200,000 (SENSORCAINE) 30 ML VIAL INJ ONE (12:37)
[2022-11-21] MEDS ORDERED: IOHEXOL 300 MG/ML 100 ML (OMNIPAQUE 300) VIAL INJ ONE (12:38)
[2022-11-21] MEDS ORDERED: PHENYLEPHRINE 100 MCG/ML 10 ML (ANESTHESIA) SYR ONE (12:56)
[2022-11-21] MEDS ORDERED: KETOROLAC 30 MG/ML VIAL ONE (13:30)
[2022-11-21] MEDS ORDERED: SEVOFLURANE (ULTANE) 15 ML INHAL SOLN ONE (13:41)
--- NOTE | 2022-11-21 13:48 | Progress Note-Post Operative ---
Post-Operative Progess Note Surgeon (s)/Neuro Urologist (s) Surgeon DWAINE DUBON DO Neuro Urologist: Dr. Ovalles to assist in retraction dissection and closure. Pre-Operative Diagnosis cholelithiasis Post-Operative Diagnosis same Procedure & Operative Findings Date of Procedure 11/21/22 Procedure Performed/Findings PROCEDURE: Laparoscopic cholecystectomy with attempted intraoperative cholangiogram. COMPLICATIONS: None. PROCEDURE: The patient was taken to the operating suite and was prepped and draped in sterile fashion. A surgical pause was performed. Just superior to the umbilicus, a 12 mm incision was made. Dissection was taken down to the fascia, which was then scored and grasped with a Arvin and the abdomen was then entered. A 0 Vicryl suture was placed in a [id number] fashion and a Covington trocar was placed and secured. Pneumoperitoneum was achieved. A 5mm trochar place in the subxyphoid and 2 in the right upper quadrant. The gallbladder was then grasped and elevated. The gallbladder had adhesions that were taken down. The cystic duct, and cystic artery were then dissected out. Clip was placed on the distal portion of the cystic duct which was then partially transected. An arrow catheter was attempted to be inserted into the duct. The duct was to small. The cholangiogram was unable to be performed. Clips were placed on proximal portion of the cystic duct and then the duct was then transected. Clips were placed along the proximal and distal portion of the cystic artery which was then transected. Hook cautery was used to dissect the gallbladder from the gallbladder fossa achieving hemostasis. The gallbladder was placed in an Endobag and removed through the 12 mm trocar site. The abdomen was then reinspected. Copious amounts of irrigation were used to irrigate the abdomen and there were no signs of active bleeding. Hemostasis had been achieved. The 12 mm fascial defect was then closed with 0 Vicryl suture that had been placed in a [id number] fashion. The abdomen was then desufflated, the trocars were removed. The abdomen was then washed and dried. The skin was then closed using 4-0 Monocryl in a subcuticular fashion. The abdomen was washed and dried and Skin Affix was place over incisions. Patient tolerated the procedure well without any complications and was taken to the recovery room in stable condition. Anesthesia Type general Estimated Blood Loss Estimated blood loss (mL): minimal Specimens/Packing Specimens Removed gallbladder DWAINE DUBON DO Nov 21, 2022 13:48
[2022-11-21] MEDS ORDERED: ACHD5005 PO (13:52)
--- NOTE | 2022-11-21 13:54 | Discharge Inst-Simple/Standard ---
Discharge Inst-Standard Discharge Medications New, Converted or Re-Newed RX: Transmitted to Pharmacy Patient Instructions/Follow Up Plan of Care/Instructions/FU: 2 weeks Eunice Activity as Tolerated: No Discharge Diet: Regular Diet Other Inst to Patient Follow up Appt: Make appointment for 2 weeks. Instructions: No lifting greater than 10 pounds. No strenuous activity. May shower in 24 hours, no tub bath or soaking. Use incentive spirometer at home as directed. No Smoking Skin/Wound Care: You have special glue over incision, it will fall off on it's own. Symptoms to Report: Appetite Changes, Extremity Discoloration, Numbness/Tingling, Swelling Increased, Bleeding Excessive, Eyesight Changes, Pain Increased, Urine Color Change, Constipation(Persistent), Fever over 101 degree F, Pain/Pressure in chest, Urinating Difficulty, Cough Up/Vomit Blood, Heart Beat Irreg/Pounding, Pain/Pressure in jaw, Vaginal Bleeding Increase, Cramps in feet or legs, Lightheadedness, Pain/Pressure in shoulder, Diarrhea(Persistent), Memory Changes Suddenly, Questions/Concerns, Weight gain consecutive days, Dizziness/Fainting, Nausea/Vomiting, Shortness of Breath, Weight gain over 2 pounds. If eyes or skin turn yellow notify physician. If questions or concerns contact your physician Or seek help at emergency department. DWAINE DUBON DO Nov 21, 2022 13:53
[2022-11-21] MEDS ORDERED: ONDANSETRON 4 MG/2 ML (SDV) Z0FRAN IVP PRN (14:00)
[2022-11-21] MEDS ORDERED: HYDROmorphone 2 MG/ML VIAL (DILAUDID) IV ONE (14:00)
--- NOTE | 2022-11-21 14:25 | Anesthesia-General Post-Op ---
General Patient Condition Mental Status/LOC: Same as Preop Cardiovascular: Satisfactory Nausea/Vomiting: Absent Respiratory: Satisfactory Pain: Controlled Complications: Absent Post Op Complications Complications None Follow Up Care/Instructions Patient Instructions None needed. Anesthesia/Patient Condition Patient Condition Patient is doing well, no complaints, stable vital signs, no apparent adverse anesthesia problems. No complications reported per nursing. [place] [facility] [place] Yes ISAMAR TRAVIS CRNA Nov 21, 2022 14:25
[2022-11-21] MEDS ORDERED: HYDROcodone/APAP 5 MG/325 MG (LORTAB) TAB ONE (15:07)
[2022-11-21] MEDS ORDERED: HYDROcodone/APAP 5 MG/325 MG (LORTAB) TAB PO ONE (15:15)
[2022-11-22] MEDS ORDERED: OXYC1TAB87 PO (05:40)
== END 2022-11-21 16:00 ==
LOC: SDC 09:09
PROVIDERS: ATTEND Surgery
DX: K80.10 Calculus of gallbladder with chronic cholecystitis without obstruction (principal); E66.01 Morbid (severe) obesity due to excess calories; Z68.44 Body mass index [BMI] 60.0-69.9, adult
CPT/HCPCS: 87081; 88304

== ENCOUNTER 2022-11-22 03:52 | Emergency (ER) | payer BC ==
[~2022-11-22] VITALS: Ht 165 cm; Wt 173.0 kg
--- NOTE | 2022-11-22 04:09 | ED Abdominal Pain ---
General Stated Complaint: POST OP GALLBLADDER SURGERY,RT SIDE PX Source of Information: Patient Exam Limitations: No Limitations History of Present Illness Date Seen by Provider: Nov 22, 2022 Time Seen by Provider: 03:58 Initial Comments Patient is a 37-year-old female who presents to the emergency room with a chief complaint of right upper quadrant abdominal pain radiating to her shoulder. She is postop day 1 not even 24 hours from laparoscopic cholecystectomy. She states that the pain has steadily worsened and increased over the course of the evening. She is unable to take a deep breath without intense pain. She is not nauseous. No fevers or chills. No productive cough. She is urinating normally. Has not had a bowel movement since prior to surgery and is not passing gas as of yet. Patient took hydrocodone approximately an hour prior to arrival without any relief. Dr. Dubon did her cholecystectomy. Timing/Duration: 4-6 Hours Severity/Quality: Severe, Sharp, Stabbing Location: RUQ Radiation: Scapula, Shoulder Activities at Onset: None Modifying Factors: Worsens With Breathing, Worsens With Movement Associated Symptoms: Shortness of Air Allergies and Home Medications Allergies Coded Allergies: adhesive tape (Unverified Allergy, Intermediate, Rash, 11/20/22) Penicillins (Verified Allergy, Unknown, 11/22/22) Patient Home Medication List Home Medication List Reviewed: Yes Dicyclomine HCl (Dicyclomine HCl) 20 Mg Tablet, 20 MG PO QIDACHS Prescribed by: CRISTIAN GARCIA on 11/03/22 0929 Docusate Sodium (Docusate Sodium) 100 Mg Capsule, 100 MG PO BID PRN for CONSTI PATION-1ST LINE Prescribed by: GEMINI RODRIGUEZ on 09/16/22 1451 Duloxetine HCl (Cymbalta) 30 Mg Capsule., 30 MG PO DAILY, (Reported) Entered as Reported by: SUDEEP ROJO on 11/02/18 1337 Duloxetine HCl (Cymbalta) 60 Mg Capsule., 60 MG PO DAILY, (Reported) Entered as Reported by: SUDEEP ROJO on 11/02/18 1337 Estradiol (Estrace Tablet) 2 Mg Tablet, 2 MG PO DAILY Prescribed by: GEMINI RODRIGUEZ on 09/16/22 1452 Gabapentin (Gabapentin) 100 Mg Capsule, 200 MG PO HS, (Reported) Entered as Reported by: SUDEEP ROJO on 06/10/19 1046 Hydrocodone/Acetaminophen (Hydrocodone-Acetamin 5-325 mg) 5 Mg-325 Mg Tablet, 1 EACH PO Q4H PRN for PAIN-MODERATE (5-7) Prescribed by: DWAINE DUBON on 11/21/22 1353 Ibuprofen (Ibu) 600 Mg Tablet, 600 MG PO Q6H PRN for PAIN-MODERATE Prescribed by: GEMINI RODRIGUEZ on 09/16/22 1451 Levothyroxine Sodium (Levothyroxine) 75 Mcg Capsule, 75 MCG PO DAILY, (Reported) Entered as Reported by: Akiko Pastor on 11/20/22 1146 Simethicone (Simethicone) 80 Mg Tab.chew, 40 MG PO TID PRN for INDIGESTION 2ND LINE Prescribed by: NIR MILLER on 06/21/19 0921 Topiramate (Topamax) 50 Mg Tablet, 50 MG PO HS, (Reported) Entered as Reported by: Akiko Pastor on 11/20/22 1148 Discontinued Medications Hydrocodone Bit/Acetaminophen (Lortab 7.5 Mg Tablet) 1 Ea Tablet, 2 EA PO Q6H PRN for Pain-See Instructions Prescribed by: NIR MILLER on 06/21/19 0921 Oxycodone HCl/Acetaminophen (Percocet 5-325 mg Tablet) 1 Each Tablet, 1 TAB PO Q6H PRN for PAIN-MODERATE (5-7) Prescribed by: GEMINI RODRIGUEZ on 09/16/22 1452 Review of Systems Review of Systems Constitutional: see HPI EENTM: No Symptoms Reported Respiratory: Shortness of Air Cardiovascular: No Symptoms Reported Gastrointestinal: Abdominal Pain Genitourinary: No Symptoms Reported Musculoskeletal: joint pain (shoulder - right) Skin: no symptoms reported All Other Systems Reviewed Negative Unless Noted: Yes Past Jkryuiz-Xutvsg-Dvxfxa Hx Immunizations Up To Date Tetanus Booster (TDap): Less than 5yrs PED Vaccines UTD: No Seasonal Allergies Seasonal Allergies: Yes Past Medical History Surgery/Hospitalization HX: HYSTERECTOMY, R SIDE. 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 Sexually Transmitted Disease: No HIV/AIDS: No Genitourinary: No Kidney Infection, Bladder Infection Gastrointestinal: No Musculoskeletal: No Fibromyalgia, Chronic Back Pain Endocrine: Yes Hypothyroidsim HEENT: No Loss of Vision: Denies Hearing Impairment: Denies Cancer: No Psychosocial: No Integumentary: Yes Eczema Blood Disorders: No Adverse Reaction/Blood Tranf: No Family Medical History Diabetes mellitus G8 BROTHER Hypertension 19 FATHER 19 MOTHER No Pertinent Family Hx Physical Exam Vital Signs Vital Signs - First Documented 11/22/22 03:57 Temp 36.8 Pulse 79 Resp 22 B/P (MAP) 133/67 (89) Pulse Ox 99 O2 Delivery Room Air Capillary Refill : Height/Weight/BMI Height: 5'5.00" Weight: 335lbs. 0.0oz. 151.892808bs; 63.43 BMI Method:Stated General Appearance: WD/WN, moderate distress HEENT: PERRL/EOMI, other (dry lips) Respiratory: lungs clear, normal breath sounds, no respiratory distress, no accessory muscle use, other (dyspneic due to pain) Cardiovascular: regular rate, rhythm Gastrointestinal: soft, abnormal bowel sounds (hypoactive), tenderness (RUQ) Extremities: normal range of motion, normal inspection, no pedal edema Neurologic/Psychiatric: alert, normal mood/affect, oriented x 3, other (anxious) Skin: normal color, warm/dry Progress/Results/Core Measures Results/Orders Lab Results Laboratory Tests Test 11/22/22 04:05 Range/Units White Blood Count 14.1 H 4.3-11.0 10^3/uL Red Blood Count 5.00 3.80-5.11 10^6/uL Hemoglobin 14.2 11.5-16.0 g/dL Hematocrit 43 35-52 % Mean Corpuscular Volume 85 80-99 fL Mean Corpuscular Hemoglobin 28 25-34 pg Mean Corpuscular Hemoglobin Concent 33 32-36 g/dL Red Cell Distribution Width 13.1 10.0-14.5 % Platelet Count 342 130-400 10^3/uL Mean Platelet Volume 9.7 9.0-12.2 fL Immature Granulocyte % (Auto) 0 % Neutrophils (%) (Auto) 85 H 42-75 % Lymphocytes (%) (Auto) 11 L 12-44 % Monocytes (%) (Auto) 4 0-12 % Eosinophils (%) (Auto) 0 0-10 % Basophils (%) (Auto) 0 0-10 % Neutrophils # (Auto) 12.0 H 1.8-7.8 10^3/uL Lymphocytes # (Auto) 1.5 1.0-4.0 10^3/uL Monocytes # (Auto) 0.6 0.0-1.0 10^3/uL Eosinophils # (Auto) 0.0 0.0-0.3 10^3/uL Basophils # (Auto) 0.0 0.0-0.1 10^3/uL Immature Granulocyte # (Auto) 0.0 0.0-0.1 10^3/uL Neutrophils % (Manual) 87 % Lymphocytes % (Manual) 10 % Monocytes % (Manual) 3 % Blood Morphology Comment NORMAL Sodium Level 139 135-145 MMOL/L Potassium Level 4.2 3.6-5.0 MMOL/L Chloride Level 106 98-107 MMOL/L Carbon Dioxide Level 22 21-32 MMOL/L Anion Gap 11 5-14 MMOL/L Blood Urea Nitrogen 9 7-18 MG/DL Creatinine 0.80 0.60-1.30 MG/DL Estimat Glomerular Filtration Rate 98 BUN/Creatinine Ratio 11 Glucose Level 134 H 70-105 MG/DL Calcium Level 9.4 8.5-10.1 MG/DL Corrected Calcium 9.3 8.5-10.1 MG/DL Total Bilirubin 0.6 0.1-1.0 MG/DL Aspartate Amino Transf (AST/SGOT) 31 5-34 U/L Alanine Aminotransferase (ALT/SGPT) 41 0-55 U/L Alkaline Phosphatase 93 40-136 U/L Total Protein 7.2 6.4-8.2 GM/DL Albumin 4.1 3.2-4.5 GM/DL My Orders Orders - CRISTIAN GARCIA MD Ed Iv/Invasive Line Start (11/22/22 04:03) Cbc With Automated Diff (11/22/22 04:03) Comprehensive Metabolic Panel (11/22/22 04:03) Abdomen, Flat & Upright/Decub (11/22/22 04:03) Fentanyl Inj (Sublimaze Injection) (11/22/22 04:15) Ondansetron Injection (Zofran Injectio (11/22/22 04:15) Manual Differential (11/22/22 04:05) Morphine Injection (Morphine Injection (11/22/22 05:35) Medications Given in ED Current Medications Medications Dose Ordered Sig/Lucero Route Start Time Stop Time Status Last Admin Dose Admin Fentanyl Citrate 75 mcg ONCE ONCE IVP 11/22/22 04:15 11/22/22 04:16 DC 11/22/22 04:08 75 MCG Ondansetron HCl 4 mg ONCE ONCE IVP 11/22/22 04:15 11/22/22 04:16 DC 11/22/22 04:08 4 MG Vital Signs/I&O 11/22/22 03:57 Temp 36.8 Pulse 79 Resp 22 B/P (MAP) 133/67 (89) Pulse Ox 99 O2 Delivery Room Air Progress Progress Note : Time: 05:29 Progress Note Patient seen and examined by me, 37-year-old postop day 1 laparoscopic cholecystectomy with right upper quadrant abdominal pain and shoulder pain. Exam pertinent for right upper quadrant abdominal tenderness. Hypoactive bowel sounds. Afebrile, no tachycardia not hypoxic. No lower extremity edema or calf pain. Heart is regular. Labs obtained, CBC, Chem-12 also flat and upright abdominal x-rays. Patient is treated with 75 mcg of fentanyl and 4 of Zofran. Differential diagnosis based on history and physical, pneumoperitoneum as a result of laparoscopic surgery, bile duct leakage, ileus, peritonitis. Labs reviewed, mild leukocytosis at 14,000 on her CBC. Her chemistry is normal. Her flat and upright x-rays show nonspecific bowel gas pattern. Patient achieved modest relief of pain with IV fentanyl will switch to a little morphine. Clinically she does not appear to have peritonitis as she does not have a rigid abdomen or rebound tenderness. She is not febrile or tachycardic. Do not suspect bile duct leakage as she has no abnormal liver functions. Chem- 12. She is not passing gas yet however her x-rays do not show air-fluid levels or suspicion of ileus. Suspect with her pain presentation being less than 1 day postop and her shoulder pain that this is all pain as a result of gaseous distention of the abdomen during surgery. She looks much better after pain and nausea medications. Will encourage her to be active at home. She needs to take her pain medications every 4-6 hours. Patient will be sent home with return precautions to include if she develops a fever or vomiting to come back to the emergency department. She verbalized understanding of the plan of care. All questions are sought and answered. Patient is stable for discharge. Diagnostic Imaging Diagonstic Imaging: Xray Comments flat and upright abdominal films - interpreted by me - nonspecific bowel gas pattern Departure Impression Primary Impression: Postoperative right upper quadrant abdominal pain Disposition: 01 HOME, SELF-CARE Condition: Improved Departure-Patient Inst. Decision time for Depature: 05:33 Referrals: DWAINE DUBON CASEY V DO (PCP/Family) Primary Care Physician Patient Instructions: Postoperative Pain (DC) Add. Discharge Instructions: Be sure and stay as active as you can over the next couple of days. You can apply heating pad to your shoulder which may help with the pain. Keep up with your pain medications, every 4-6 hours. Drink lots of water while taking pain medicines as well as stool softeners while on narcotics as they can make you constipated. Avoid drinking through a straw as this will increase bowel gas inside your intestines. If you develop a fever, worsening pain or vomiting please come back to the emergency department for reevaluation. Keep your scheduled postop follow-up appointment with Dr. Dubon. Scripts Oxycodone HCl/Acetaminophen (Percocet 5-325 mg Tablet) 1 Each Tablet 1 TAB PO Q6H for PAIN-MODERATE MDD 6 TABS, #15 TAB 1-2 every 6 hours as needed Prov: CRISTIAN GARCIA MD 11/22/22 Copy Copies To 1: DWAINE DUBON DO Copies To 2: DOMO BROUSSARD KATHRYN M MD Nov 22, 2022 04:09
[2022-11-22] MEDS ORDERED: fentaNYL INJ 100 MCG/2 ML AMP IVP ONE (04:15)
[2022-11-22] MEDS ORDERED: ONDANSETRON 4 MG/2 ML (SDV) Z0FRAN IVP ONE (04:15)
[2022-11-22 04:21] LABS: BASOPHILS % (AUTO) 0 % (0-10); EOSINOPHILS % (AUTO) 0 % (0-10); HEMATOCRIT 43 % (35-52); HEMOGLOBIN 14.2 g/dL (11.5-16.0); LYMPHOCYTES # (AUTO) 1.5 10^3/uL (1.0-4.0); LYMPHOCYTES % (AUTO) 11 % (12-44); MEAN CORPUSCULAR HEMOGLOBIN 28 pg (25-34); MEAN CORPUSCULAR HGB CONC 33 g/dL (32-36); MEAN CORPUSCULAR VOLUME 85 fL (80-99); MEAN PLATELET VOLUME 9.7 fL (9.0-12.2); MONOCYTES # (AUTO) 0.6 10^3/uL (0.0-1.0); MONOCYTES % (AUTO) 4 % (0-12); NEUTROPHILS % (AUTO) 85 % (42-75); PLATELET COUNT 342 10^3/uL (130-400); WHITE BLOOD COUNT 14.1 10^3/uL (4.3-11.0)
[2022-11-22 04:36] LABS: ALBUMIN 4.1 GM/DL (3.2-4.5); BILIRUBIN,TOTAL 0.6 MG/DL (0.1-1.0); CALCIUM 9.4 MG/DL (8.5-10.1); CREATININE SERUM 0.8 MG/DL (0.60-1.30); POTASSIUM 4.2 MMOL/L (3.6-5.0); TOTAL PROTEIN 7.2 GM/DL (6.4-8.2)
[2022-11-22 04:54] LABS: LYMPHOCYTES % (MANUAL) 10 %; MONOCYTES % (MANUAL) 3 %; NEUTROPHILS % (MANUAL) 87 %; RBC MORPH NORMAL
[2022-11-22] MEDS ORDERED: morphine INJ 10 MG/ML 1ML (SYR OR VIAL) IVP STA (05:35)
[2022-11-22] MEDS ORDERED: OXYC1TAB87 PO (05:40)
[2022-11-22 05:52] VITALS: BP 131/77
--- NOTE | 2022-11-22 06:10 | Diagnostic Imaging Report ---
INDICATION: Right upper quadrant pain. FINDINGS: There are surgical clips in right upper quadrant. Bowel gas pattern is nonspecific. There are no abnormal calcifications. The osseous structures are unremarkable. IMPRESSION: Nonspecific bowel gas pattern. Previous cholecystectomy. Dictated by: Dictated on workstation # [id number]
== END 2022-11-22 05:56 | disposition home or self-care (01) ==
LOC: EDUNIT# 03:52 → ER 03:54
DX: G89.18 Other acute postprocedural pain (principal); R10.11 Right upper quadrant pain; D72.829 Elevated white blood cell count, unspecified; M25.511 Pain in right shoulder; Z90.49 Acquired absence of other specified parts of digestive tract
CPT/HCPCS: 36415; 74019; 80053; 85007; 85027